=== PATIENT | female | born 1935 | race Hispanic/Latino ===

== ENCOUNTER 2017-11-13 22:45 | Inpatient (IN) | payer MEDICARE, OTHER ==
[2017-11-13 22:46] VITALS: BMI 36.3
--- NOTE | 2017-11-13 23:10 | C.PDOC ---
History Of Present Illness 82 year old female presents to the ER with daughter for a complaint of SOB. Patient was admitted at [facility] during the end of July for swollen legs, SOB, and was diagnosed with CHF. Patient was admitted for 10 days then transferred to [facility]. Patient was discharged home from [facility] on 11/07/17. She initially was able to take care of herself, however, she was discharged with cold and cough symptoms which have been worsening and causing her to get progressively SOB. Patient was barely able to get out of her chair at home and had to sleep on her recliner, she presents now tachypneic, coughing, and with leg swelling. While hospitalized and at rehab, patient was diagnosed with UTIs and needed frequent IV antibiotics. Denies fever, chills, chest pain, nausea, or vomiting. Time Seen by Provider: 11/13/17 22:52 Chief Complaint (Nursing): Shortness Of Breath History Per: Patient History/Exam Limitations: no limitations Onset/Duration Of Symptoms: Days Current Symptoms Are (Timing): Still Present Current Respiratory Medications: See Home Med List Associated Symptoms: Ankle/Leg Swelling, Other ((+) SOB, cough (-) nausea, vomiting). denies: Fever, Chills, Chest Pain Past Medical History Reviewed: Historical Data, Nursing Documentation, Vital Signs Vital Signs: Last Vital Signs Temp 98.7 F 11/13/17 22:53 Pulse 80 11/13/17 22:53 Resp 24 11/13/17 23:01 BP 144/57 L 11/13/17 22:53 Pulse Ox 96 11/14/17 00:29 - Medical History PMH: CHF, CVA, Dementia, HTN Surgical History: Carotid Endarterectomy, Cholecystectomy - [facility] Procedures EXCISION OF TOE NAIL, EXTERNAL APPROACH (07/27/17) Family History: States: No Known Family Hx - Social History Hx Alcohol Use: No Hx Substance Use: No - Immunization History Hx Tetanus Toxoid Vaccination: No Hx Influenza Vaccination: No Hx Pneumococcal Vaccination: No Review Of Systems Constitutional: Negative for: Fever, Chills Cardiovascular: Negative for: Chest Pain, Palpitations Respiratory: Positive for: Cough, Shortness of Breath Gastrointestinal: Negative for: Nausea, Vomiting Genitourinary: Negative for: Dysuria, Hematuria Musculoskeletal: Positive for: Other (Leg swelling) Physical Exam - Physical Exam Appears: Other (Tachypneic) Skin: Warm, Dry Head: Atraumatic, Normacephalic Eye(s): bilateral: Normal Inspection Oral Mucosa: Moist Throat: Normal, No Erythema, No Exudate Neck: Normal, Supple Chest: Symmetrical, No Tenderness Cardiovascular: Rhythm Regular Respiratory: Rales (at bases), No Rhonchi, Wheezing (with expiration at bases) Gastrointestinal/Abdominal: Soft, No Tenderness, Other (Obese) Back: No CVA Tenderness Extremity: Pedal Edema (Tense pitting), Other (Redness, swelling, and tenderness of bilateral feet) Neurological/Psych: Oriented x3, Normal Speech ED Course And Treatment - Laboratory Results Result Diagrams: 11/13/17 23:48 11/13/17 23:48 Lab Interpretation: Abnormal (WBC 11.9, BUN 19, Troponin and BNP normal.) ECG: Interpreted By Me ECG Rhythm: Sinus Rhythm ECG Interpretation: No Acute Changes O2 Sat by Pulse Oximetry: 96 (Room air) Pulse Ox Interpretation: Normal - Radiology CXR: Interpreted by Me CXR Interpretation: Yes: No Acute Disease Progress Note: EKG, blood work, CXR, and urinalysis ordered. Lasix administered. Reevaluation Time: 00:45 Reassessment Condition: Unchanged - Physician Consult Information Time Consulting Physician Contacted: 00:45 Physician Contacted: Clark Bronson Outcome Of Conversation: Patient to be admitted for tachypnea, weakness and peripheral edema. Disposition - Disposition Disposition: HOSPITALIZED Disposition Time: 00:46 Condition: STABLE Instructions: Weakness (ED) - POA Present On Arrival: None - Clinical Impression Clinical Impression: Weakness, Leg edema, Dyspnea - Scribe Statement The provider has reviewed the documentation as recorded by the Ferchoibkaylah Grace All medical record entries made by the Ferchoibkaylah were at my direction and personally dictated by me. I have reviewed the chart and agree that the record accurately reflects my personal performance of the history, physical exam, medical decision making, and the department course for this patient. I have also personally directed, reviewed, and agree with the discharge instructions and disposition.
[2017-11-13 23:53] LABS: BASO # 0.1 K/uL (0.0-0.2); BASO % 0.5 % (0.0-2.0); EOS # 0.1 K/uL (0.0-0.7); EOS % 1.2 % (0.0-4.0); HEMOGLOBIN 12.9 g/dL (11.0-16.0); LYMPH # 1.7 K/uL (1.0-4.3); LYMPH % 13.9 % (20.0-40.0); MEAN CELL VOLUME 92.1 fL (81.0-99.0); MEAN CORPUSCULAR HGB CONC 33.6 g/dL (33.0-37.0); MONO # 1.3 K/uL (0.0-0.8); MONO % 10.7 % (0.0-10.0); NEUT # 8.8 K/uL (1.8-7.0); NEUT % 73.7 % (50.0-75.0); NRBC % 0.1 % (0.0-2.0); RBC 4.18 Mil/uL (3.80-5.20); RED CELL DISTRIBUTION WIDTH 13.5 % (11.5-14.5); WHITE BLOOD COUNT 11.9 K/uL (4.8-10.8)
[2017-11-14 00:01] LABS: VENOUS BLOOD GAS BASE EXCESS 1.9 mmol/L (0.0-2.0); VENOUS BLOOD GAS PCO2 50 mmHg (40-60); VENOUS BLOOD GAS PO2 19 mm/Hg (30-55); VENOUS BLOOD PH 7.36 (7.32-7.43)
[2017-11-14 00:24] LABS: ALB/GLOB RATIO 1.2 (1.0-2.1); ALBUMIN 4.3 g/dL (3.5-5.0); ALT/SGPT 17 U/L (9-52); AST/SGOT 19 U/L (14-36); BLOOD UREA NITROGEN 19 mg/dL (7-17); GFR AFRICAN-AMERICAN > 60; GFR NON-AFRICAN AMERICAN 53
[2017-11-14 00:34] LABS: B-TYPE NATRIURETIC PEPTIDE 72.9 pg/mL (0-900)
[2017-11-14 01:04] LABS: SQUAMOUS EPITHIAL 1 /hpf (0-5); URINE BACTERIA RARE (<OCC); URINE BILIRUBIN NEGATIVE (NEGATIVE); URINE BLOOD 1+ (NEGATIVE); URINE CLARITY Hazy (Clear); URINE COLOR Straw (YELLOW); URINE GLUCOSE (UA) NORMAL (Normal); URINE LEUKOCYTE ESTERASE 3+ Leu/uL (Negative); URINE PROTEIN NEGATIVE (NEGATIVE); URINE UROBILINOGEN NORMAL mg/dL (0.2-1.0)
--- NOTE | 2017-11-14 02:56 | CP.PCM.HP ---
<Soo OrnelasAlex - Last Filed: 11/14/17 05:33> History of Present Illness - History of Present Illness History of Present Illness: HPI: Patient is an 82 year old female with a past medical history of bladder cancer, HTN, CHF, and brain aneurysm, who presents to the hospital with complaints of weakness, shortness of breath, productive cough, and bilateral leg swelling. The patient recently moved from [facility] back to home with her daughter 1 week ago and since then, has developed a productive cough. Per the daughter, there were several people sick at the shelter, and she recalls several nurses wearing masks. The patient reports her cough is productive of white sputum, denies colored sputum and hemoptysis. The patient also complains of shortness of breath, leg swelling, and a painful left foot that started yesterday. Of note, patient was recently hospitalized in 07/2017 for SOB and leg swelling. She was previously on diuretic, but those were discontinued during her hospitalization in July due to hypotension. She has not taken diuretics since August. The patient states she has little to no appetite for the past 2-3 days and has had generalized weakness and fatigue. She sits in a chair most of the day and uses a walker to go to and from the bathroom. Patient denies fevers, chills, headaches, dizziness, sore throat, chest pain, palpitations, abdominal pain, nausea, vomiting, diarrhea, constipation, blood in stool, dysuria, hematuria, back pain, and rashes. PMD: Dr. Bucio PMHx: bladder cancer, HTN, CHF, and brain aneurysm (in her 30's) SurgHx: bladder surgery x2; carotid clamp (in her 30s), hysterectomy FamHx: Mother, Father- [place]; Sister- Breast cancer SocHx: smoked 1/2 pack for 20 years; quit at age 34; denies etoh and drug use; lives with daughter, Mihaela, in . Allergies: PCN (rash), Sulfa (rash) Medications: Aricept 10mg PO HS, Detrol 2mg PO BID, Gabapentin 600mg PO HS, Mucinex BID Code status: DNR/DNI; POA- Mihaela (daughter; [phone]) Present on Admission - Present on Admission Any Indicators Present on Admission: No Review of Systems - Constitutional Constitutional: Weakness. absent: Chills, Fever, Headache - EENT Eyes: absent: Change in Vision Ears: absent: Abnormal Hearing, Dizziness - Cardiovascular Cardiovascular: Leg Edema. absent: Chest Pain, Dyspnea, Irregular Heart Rhythm , Palpitations, Rapid Heart Rate - Respiratory Respiratory: Cough, Dyspnea, Excessive Mucous Production (white phlegm). absent : Hemoptysis - Gastrointestinal Gastrointestinal: absent: Abdominal Pain, Constipation, Diarrhea, Hematemesis, Hematochezia, Nausea, Vomiting - Genitourinary Genitourinary: Urinary Incontinence. absent: Dysuria, Hematuria, Pyuria - Musculoskeletal Musculoskeletal: Abnormal Gait (weakness, uses walker at home) - Neurological Neurological: absent: Dizziness, Headaches - Endocrine Endocrine: Fatigue. absent: Palpitations - Hematologic/Lymphatic Hematologic: absent: Easy Bleeding, Easy Bruising Past Patient History - Infectious Disease Hx of Infectious Diseases: None - Past Medical History & Family History Past Medical History?: Yes - Past Social History Smoking Status: Never Smoked - CARDIAC Hx Congestive Heart Failure: Yes Hx Hypertension: Yes - PULMONARY Hx Respiratory Disorders: No - NEUROLOGICAL Hx Dementia: Yes - HEENT Hx HEENT Problems: No - RENAL Hx Chronic Kidney Disease: No - ENDOCRINE/METABOLIC Hx Endocrine Disorders: Yes - HEMATOLOGICAL/ONCOLOGICAL Hx Blood Disorders: No - INTEGUMENTARY Hx Dermatological Problems: No - MUSCULOSKELETAL/RHEUMATOLOGICAL Hx Musculoskeletal Disorders: No - GASTROINTESTINAL Hx Gastrointestinal Disorders: No - GENITOURINARY/GYNECOLOGICAL Hx Genitourinary Disorders: No - PSYCHIATRIC Hx Substance Use: No - SURGICAL HISTORY Hx Carotid Endarterectomy: Yes Hx Cholecystectomy: Yes - ANESTHESIA Hx Anesthesia: Yes Hx Anesthesia Reactions: No Hx Malignant Hyperthermia: No Meds Allergies/Adverse Reactions: Allergies Allergy/AdvReac Type Severity Reaction Status Date / Time Penicillins Allergy Verified 11/13/17 22:58 Sulfa (Sulfonamide Allergy Verified 11/13/17 22:58 Antibiotics) Physical Exam - Constitutional Appears: No Acute Distress - Head Exam Head Exam: ATRAUMATIC, NORMAL INSPECTION - Eye Exam Eye Exam: EOMI, PERRL Additional comments: arcus senalis - ENT Exam ENT Exam: Mucous Membranes Moist - Respiratory Exam Respiratory Exam: Rales (bilaterally), NORMAL BREATHING PATTERN. absent: Rhonchi, Respiratory Distress - Cardiovascular Exam Cardiovascular Exam: REGULAR RHYTHM, +S1, +S2 - GI/Abdominal Exam GI & Abdominal Exam: Normal Bowel Sounds, Soft. absent: Distended, Firm, Guarding, Mass, Tenderness - Extremities Exam Extremities exam: Positive for: normal capillary refill (in UE), pedal edema, tenderness (L foot > R foot). Negative for: normal inspection (LE B/L: pitting edema extending up to knees; erythematous and shiny skin; hyperkeratosis on the feet; toe onychomycosis), pedal pulses present (not palpable due to pitting edema) - Back Exam Back exam: absent: CVA tenderness (L), CVA tenderness (R), rash noted - Neurological Exam Neurological exam: Alert, CN II-XII Intact, Oriented x3 - Psychiatric Exam Psychiatric exam: Normal Affect, Normal Mood - Skin Skin Exam: Dry, Intact, Normal Color, Warm Results - Vital Signs Recent Vital Signs: Last Vital Signs Temp 98.7 F 11/13/17 22:53 Pulse 80 11/13/17 22:53 Resp 24 11/13/17 23:01 BP 144/57 L 11/13/17 22:53 Pulse Ox 96 11/14/17 00:46 - Labs Result Diagrams: 11/14/17 04:19 11/13/17 23:48 Labs: Laboratory Results - last 24 hr 11/13/17 11/13/17 11/13/17 23:09 23:48 23:48 WBC 11.9 H RBC 4.18 Hgb 12.9 Hct 38.5 MCV 92.1 MCH 31.0 MCHC 33.6 RDW 13.5 Plt Count 233 MPV 9.0 Neut % (Auto) 73.7 Lymph % (Auto) 13.9 L Grainger % (Auto) 10.7 H Eos % (Auto) 1.2 Baso % (Auto) 0.5 Neut # (Auto) 8.8 H Lymph # (Auto) 1.7 Grainger # (Auto) 1.3 H Eos # (Auto) 0.1 Baso # (Auto) 0.1 pO2 VBG pH VBG pCO2 VBG HCO3 VBG Total CO2 VBG O2 Sat (Calc) VBG Base Excess VBG Potassium Glucose Lactate Crit Value Called To Crit Value Called By Crit Value Read Back Blood Gas Notified Time Sodium 143 Potassium 4.1 Chloride 104 Carbon Dioxide 26 Anion Gap 17 BUN 19 H Creatinine 1.0 Est GFR ( Amer) > 60 Est GFR (Non-Af Amer) 53 Random Glucose 113 H Calcium 10.0 Magnesium 2.1 Total Bilirubin 0.8 AST 19 ALT 17 Alkaline Phosphatase 83 Troponin I < 0.0120 NT-Pro-B Natriuret Pep 72.9 Total Protein 7.9 Albumin 4.3 Globulin 3.7 Albumin/Globulin Ratio 1.2 Venous Blood Potassium Urine Color Straw Urine Clarity Hazy Urine pH 6.0 Ur Specific Rothschild 1.005 Urine Protein Negative Urine Glucose (UA) Normal Urine Ketones Negative Urine Blood 1+ H Urine Nitrate Negative Urine Bilirubin Negative Urine Urobilinogen Normal Ur Leukocyte Esterase 3+ H Urine WBC (Auto) 186 H Urine RBC (Auto) 1 Ur Squamous Epith Cells 1 Urine Bacteria Rare 11/13/17 23:50 WBC RBC Hgb Hct MCV MCH MCHC RDW Plt Count MPV Neut % (Auto) Lymph % (Auto) Grainger % (Auto) Eos % (Auto) Baso % (Auto) Neut # (Auto) Lymph # (Auto) Grainger # (Auto) Eos # (Auto) Baso # (Auto) pO2 19 L VBG pH 7.36 VBG pCO2 50 VBG HCO3 24.5 VBG Total CO2 29.7 H VBG O2 Sat (Calc) 30.0 L VBG Base Excess 1.9 VBG Potassium 3.8 Glucose 100 Lactate 1.1 Crit Value Called To Dr issa Crit Value Called By Li morrison Crit Value Read Back Y Blood Gas Notified Time 3 Sodium 141.0 Potassium Chloride 107.0 Carbon Dioxide Anion Gap BUN Creatinine Est GFR ( Amer) Est GFR (Non-Af Amer) Random Glucose Calcium Magnesium Total Bilirubin AST ALT Alkaline Phosphatase Troponin I NT-Pro-B Natriuret Pep Total Protein Albumin Globulin Albumin/Globulin Ratio Venous Blood Potassium 3.8 Urine Color Urine Clarity Urine pH Ur Specific Rothschild Urine Protein Urine Glucose (UA) Urine Ketones Urine Blood Urine Nitrate Urine Bilirubin Urine Urobilinogen Ur Leukocyte Esterase Urine WBC (Auto) Urine RBC (Auto) Ur Squamous Epith Cells Urine Bacteria Assessment & Plan - Assessment and Plan (Free Text) Assessment: Shortness of breath, Cough - Possibly secondary to URI, pneumonia? - Abefrile, leukocytosis (WBC 11.9), no bandemia - CXR: f/u report - Blood cx: f/u - D-dimer: elevated, 487 - Chest CT: f/u - O2 via NC - Doxycycline 100mg PO Q12h - Robitussin Q6h prn for cough Lower Extremity Edema - Venous dopplers: f/u - will consider compression stocks if dopplers are negative UTI - Urinalysis: 3+ LE - Urine cx: f/u - Doxycycline 100mg PO Q12h Weakness/Fatigue - PT/OT - Fall precaution - Encourage increased PO intake Urinary incontinence - Continue home medication: Detrol 2mg PO Prophylaxis - DVT: heparin 5000u SC Q8h; will consider compression stocks if dopplers are negative - GI: not indicated - Heart Healthy Diet; encourage increased PO intake - PT/OT - Fall precautions - Code status: DNR/DNI; POA- Mihaela (daughter; [phone]) <Clark Bronson P - Last Filed: 11/14/17 07:42> Results - Vital Signs Recent Vital Signs: Last Vital Signs Temp 97.7 F 11/14/17 05:05 Pulse 88 11/14/17 05:05 Resp 22 11/14/17 05:05 BP 113/56 L 11/14/17 05:05 Pulse Ox 99 11/14/17 05:05 - Labs Result Diagrams: 11/14/17 04:19 11/13/17 23:48 Labs: Laboratory Results - last 24 hr 11/13/17 11/13/17 11/13/17 23:09 23:48 23:48 WBC 11.9 H RBC 4.18 Hgb 12.9 Hct 38.5 MCV 92.1 MCH 31.0 MCHC 33.6 RDW 13.5 Plt Count 233 MPV 9.0 Neut % (Auto) 73.7 Lymph % (Auto) 13.9 L Grainger % (Auto) 10.7 H Eos % (Auto) 1.2 Baso % (Auto) 0.5 Neut # (Auto) 8.8 H Lymph # (Auto) 1.7 Grainger # (Auto) 1.3 H Eos # (Auto) 0.1 Baso # (Auto) 0.1 D-Dimer, Quantitative pO2 VBG pH VBG pCO2 VBG HCO3 VBG Total CO2 VBG O2 Sat (Calc) VBG Base Excess VBG Potassium Glucose Lactate Crit Value Called To Crit Value Called By Crit Value Read Back Blood Gas Notified Time Sodium 143 Potassium 4.1 Chloride 104 Carbon Dioxide 26 Anion Gap 17 BUN 19 H Creatinine 1.0 Est GFR ( Amer) > 60 Est GFR (Non-Af Amer) 53 Random Glucose 113 H Calcium 10.0 Magnesium 2.1 Total Bilirubin 0.8 AST 19 ALT 17 Alkaline Phosphatase 83 Troponin I < 0.0120 NT-Pro-B Natriuret Pep 72.9 Total Protein 7.9 Albumin 4.3 Globulin 3.7 Albumin/Globulin Ratio 1.2 Venous Blood Potassium Urine Color Straw Urine Clarity Hazy Urine pH 6.0 Ur Specific Rothschild 1.005 Urine Protein Negative Urine Glucose (UA) Normal Urine Ketones Negative Urine Blood 1+ H Urine Nitrate Negative Urine Bilirubin Negative Urine Urobilinogen Normal Ur Leukocyte Esterase 3+ H Urine WBC (Auto) 186 H Urine RBC (Auto) 1 Ur Squamous Epith Cells 1 Urine Bacteria Rare 11/13/17 11/14/17 11/14/17 23:50 03:06 04:19 WBC 14.0 H RBC 4.40 Hgb 13.9 Hct 40.6 MCV 92.2 MCH 31.5 H MCHC 34.2 RDW 13.7 Plt Count 246 MPV 9.7 Neut % (Auto) 70.2 Lymph % (Auto) 15.9 L Grainger % (Auto) 12.3 H Eos % (Auto) 1.2 Baso % (Auto) 0.4 Neut # (Auto) 9.8 H Lymph # (Auto) 2.2 Grainger # (Auto) 1.7 H Eos # (Auto) 0.2 Baso # (Auto) 0.1 D-Dimer, Quantitative 487 H pO2 19 L VBG pH 7.36 VBG pCO2 50 VBG HCO3 24.5 VBG Total CO2 29.7 H VBG O2 Sat (Calc) 30.0 L VBG Base Excess 1.9 VBG Potassium 3.8 Glucose 100 Lactate 1.1 Crit Value Called To Dr issa Crit Value Called By Li morrison Crit Value Read Back Y Blood Gas Notified Time 3 Sodium 141.0 Potassium Chloride 107.0 Carbon Dioxide Anion Gap BUN Creatinine Est GFR ( Amer) Est GFR (Non-Af Amer) Random Glucose Calcium Magnesium Total Bilirubin AST ALT Alkaline Phosphatase Troponin I NT-Pro-B Natriuret Pep Total Protein Albumin Globulin Albumin/Globulin Ratio Venous Blood Potassium 3.8 Urine Color Urine Clarity Urine pH Ur Specific Rothschild Urine Protein Urine Glucose (UA) Urine Ketones Urine Blood Urine Nitrate Urine Bilirubin Urine Urobilinogen Ur Leukocyte Esterase Urine WBC (Auto) Urine RBC (Auto) Ur Squamous Epith Cells Urine Bacteria Attending/Attestation - Attestation I have personally seen and examined this patient.: Yes I have fully participated in the care of the patient.: Yes I have reviewed all pertinent clinical information: Yes Notes (Text): 11/14/17 07:36 Assessment * Ambulatory dysfunction * Chronic venous insufficiency * H/o BILLIE with diuresis for venous insufficiency * Recent dry cough x 1 wk, 1-2 days before she left rehab * H/o carotid aneurysm, h/o bladder cancer * leucocytes in urine, will get straight cath sample of urine * DNR/DNI as d/w patient and daughter, has living will and daughter will bring the copy to hospital Plan * CTA of chest, and venous doppler as + ddimer * Avoid diuresis for leg edema as in past has caused BILLIE * Empiric doxycycline due to bronchitis * Urine straight cath sample * PT/OT, social service eval * GI/DVT prophylaxis * See orders for detail.
[2017-11-14] MEDS: guaiFENesin DM 100 mg-10 mg/5 ml UD PO PRN ×3 (03:52→18:39)
[2017-11-14] MEDS ORDERED: guaiFENesin DM 100 mg-10 mg/5 ml UD ONE (03:55)
[2017-11-14 04:58] LABS: BASO # 0.1 K/uL (0.0-0.2); BASO % 0.4 % (0.0-2.0); EOS # 0.2 K/uL (0.0-0.7); EOS % 1.2 % (0.0-4.0); HEMOGLOBIN 13.9 g/dL (11.0-16.0); LYMPH # 2.2 K/uL (1.0-4.3); LYMPH % 15.9 % (20.0-40.0); MEAN CELL VOLUME 92.2 fL (81.0-99.0); MEAN CORPUSCULAR HEMOGLOBIN 31.5 pg (27.0-31.0); MEAN CORPUSCULAR HGB CONC 34.2 g/dL (33.0-37.0); MEAN PLATELET VOLUME 9.7 fL (7.2-11.7); MONO # 1.7 K/uL (0.0-0.8); MONO % 12.3 % (0.0-10.0); NEUT # 9.8 K/uL (1.8-7.0); NEUT % 70.2 % (50.0-75.0); NRBC % 0.3 % (0.0-2.0); RBC 4.4 Mil/uL (3.80-5.20); RED CELL DISTRIBUTION WIDTH 13.7 % (11.5-14.5)
[2017-11-14 08:48] LABS: ALB/GLOB RATIO 1.3 (1.0-2.1); ALT/SGPT 17 U/L (9-52); AST/SGOT 18 U/L (14-36); BLOOD UREA NITROGEN 19 mg/dL (7-17); CALCIUM 9.4 mg/dl (8.6-10.4); GFR AFRICAN-AMERICAN > 60; GFR NON-AFRICAN AMERICAN 60
[2017-11-14] MEDS: Tolterodine 2 mg ER Cap PO SCH ×2 (09:44→18:40)
[2017-11-14] MEDS ORDERED: Iodixanol 320 MG/ML 100 ML BOTTLE IV ONE (10:23)
--- NOTE | 2017-11-14 11:14 | CP.PCM.CON ---
History of Present Illness - History of Present Illness History of Present Illness: Palliative consult requested by Doctor Ornelas for goals of care discussion Patient is a 82 yo female admitted from home with SOB, tachypnea and cough. Patient was treated in July/2017 at [facility] for similar symptoms, diagnosed with CHF, treated X 10 days and discharged to [facility]. From [facility] patient discharged home. Per daughter, patient still had cold like symptoms , that only got worse over the time. Cough has worsened and patient slept in recliner for days. On admission CXR and Doppler of LEs done, results are pending. PMH: CVA, CHF, dementia Soc. Hx: , lives with daughter Fam. Hx: no obtainable from the patient Review of Systems - Constitutional Constitutional: Fatigue - EENT Eyes: absent: As Per HPI, Blind Spots, Blurred Vision, Change in Vision, Decreased Night Vision, Diplopia, Discharge, Dry Eye, Exophthalmos, Floaters, Irritation, Itchy Eyes, Loss of Peripheral Vision, Pain, Photophobia, Requires Corrective Lenses, Sees Flashes, Spots in Vision, Tunnel Vision, Other Visual Disturbances, Loss of Vision, Other Ears: absent: As Per HPI, Decreased Hearing, Ear Discharge, Ear Pain, Tinnitus, Abnormal Hearing, Disequilibrium, Dizziness, Other Nose/Mouth/Throat: absent: As Per HPI, Epistaxis, Nasal Congestion, Nasal Discharge, Nasal Obstruction, Nasal Trauma, Nose Pain, Post Nasal Drip, Sinus Pain, Sinus Pressure, Bleeding Gums, Change in Voice, Dental Pain, Dry Mouth, Dysphagia, Halitosis, Hoarsness, Lip Swelling, Mouth Lesions, Mouth Pain, Odynophagia, Sore Throat, Throat Swelling, Tongue Swelling, Facial Pain, Neck Pain, Neck Mass, Other - Breasts Breasts: absent: As Per HPI, Change in Shape, Mass, Pain, Nipple Discharge, Nipple Inversion, Skin Changes, Swelling, Other - Cardiovascular Cardiovascular: Dyspnea on Exertion - Respiratory Respiratory: Cough, Dyspnea, Dyspnea on Exertion, Excessive Mucous Production - Gastrointestinal Gastrointestinal: absent: As Per HPI, Abdominal Pain, Belching, Bloating, Change in Bowel Habits, Change in Stool Character, Coffee Ground Emesis, Constipation, Cramping, Diarrhea, Dyspepsia, Dysphagia, Early Satiety, Excessive Flatus, Fecal Incontinence, Heartburn, Hematemesis, Hematochezia, Loose Stools, Melena, Nausea, Odynophagia, Temesmus, Vomiting, Other - Genitourinary Genitourinary: Urinary Incontinence - Reproductive: Female Reproductive:Female: Post Menopausal - Menstruation Menstruation: Post Menopausal - Musculoskeletal Musculoskeletal: Abnormal Gait, Limited Range of Motion, Muscle Weakness - Integumentary Integumentary: absent: As Per HPI, Acne, Alopecia, Bleeding Lesions, Change in Hair, Change in Nails, Change in Pigmentation, Changing Lesions, Dry Skin, Erythema, Furuncle, Hirsutism, Lesions, New Lesions, Non-Healing Lesions, Photosensitivity, Pruritus, Rash, Skin Pain, Skin Ulcer, Sores, Striae, Swelling , Unusual Bruising, Wounds, Jaundice, Other - Neurological Neurological: Confusion, Memory Loss - Psychiatric Psychiatric: Difficulty Concentrating - Endocrine Endocrine: absent: As Per HPI, Change in Body Appearance, Change in Libido, Cold Intolorance, Deepening of Voice, Excessive Sweating, Fatigue, Flushing, Heat Intolorance, Increase in Ring/Shoe/Hat Size, Palpitations, Polydipsia, Polyphagia, Polyuria, Other - Hematologic/Lymphatic Hematologic: absent: As Per HPI, Easy Bleeding, Easy Bruising, Lymphadenopathy, Other Past Patient History - Infectious Disease Hx of Infectious Diseases: None - Past Medical History & Family History Past Medical History?: Yes - Past Social History Smoking Status: Never Smoked - CARDIAC Hx Congestive Heart Failure: Yes Hx Hypertension: Yes - PULMONARY Hx Respiratory Disorders: No - NEUROLOGICAL Hx Dementia: Yes - HEENT Hx HEENT Problems: No - RENAL Hx Chronic Kidney Disease: No - ENDOCRINE/METABOLIC Hx Endocrine Disorders: Yes - HEMATOLOGICAL/ONCOLOGICAL Hx Blood Disorders: No - INTEGUMENTARY Hx Dermatological Problems: No - MUSCULOSKELETAL/RHEUMATOLOGICAL Hx Musculoskeletal Disorders: No Hx Falls: No - GASTROINTESTINAL Hx Gastrointestinal Disorders: No - GENITOURINARY/GYNECOLOGICAL Hx Genitourinary Disorders: No - PSYCHIATRIC Hx Substance Use: No - SURGICAL HISTORY Hx Carotid Endarterectomy: Yes Hx Cholecystectomy: Yes - ANESTHESIA Hx Anesthesia: Yes Hx Anesthesia Reactions: No Hx Malignant Hyperthermia: No Meds Allergies/Adverse Reactions: Allergies Allergy/AdvReac Type Severity Reaction Status Date / Time Penicillins Allergy Verified 11/13/17 22:58 Sulfa (Sulfonamide Allergy Verified 11/13/17 22:58 Antibiotics) - Medications Medications: Current Medications Donepezil HCl (Aricept) 10 mg PO HS EFRAIN Furosemide (Lasix) 20 mg IVP DAILY EFRAIN Gabapentin (Neurontin) 600 mg PO HS EFRAIN Guaifenesin/Dextromethorphan (Robitussin Dm) 5 ml PO Q6H PRN PRN Reason: Cough Last Admin: 11/14/17 09:38 Dose: 5 ml Heparin Sodium (Porcine) (Heparin) 5,000 units SC Q8 [facility] Last Admin: 11/14/17 05:38 Dose: 5,000 units Ciprofloxacin (Cipro 400mg/200ml Dsw) 400 mg in 200 mls @ 133 mls/hr IVPB Q12H EFRAIN PRN Reason: Protocol Vancomycin HCl 1,000 mg/ (Sodium Chloride) 250 mls @ 166.6 mls/hr IVPB Q12H EFRAIN PRN Reason: Protocol Tolterodine Tartrate (Detrol La) 2 mg PO BID [facility] Last Admin: 11/14/17 09:44 Dose: 2 mg Physical Exam - Constitutional Appears: Chronically Ill - Head Exam Head Exam: ATRAUMATIC, NORMAL INSPECTION, NORMOCEPHALIC - Eye Exam Eye Exam: EOMI, Normal appearance, PERRL Pupil Exam: NORMAL ACCOMODATION, PERRL - ENT Exam ENT Exam: Mucous Membranes Moist, Normal Exam - Neck Exam Neck exam: Positive for: Normal Inspection - Respiratory Exam Respiratory Exam: Decreased Breath Sounds, Rhonchi - Cardiovascular Exam Cardiovascular Exam: Tachycardia - GI/Abdominal Exam GI & Abdominal Exam: Normal Bowel Sounds, Soft - Rectal Exam Rectal Exam: Deferred - Extremities Exam Extremities exam: Positive for: joint swelling, pedal edema - Back Exam Back exam: NORMAL INSPECTION - Neurological Exam Neurological exam: Alert, Oriented x3 - Psychiatric Exam Psychiatric exam: Normal Affect, Normal Mood - Skin Skin Exam: Erythema, Mottled, Normal Color, Petechiae, Warm Results - Vital Signs Recent Vital Signs: Last Vital Signs Temp 98.8 F 11/14/17 08:00 Pulse 81 11/14/17 08:00 Resp 20 11/14/17 08:00 BP 130/75 11/14/17 08:00 Pulse Ox 99 11/14/17 08:00 - Labs Result Diagrams: 11/14/17 04:19 11/14/17 08:28 Labs: Laboratory Results - last 24 hr 11/13/17 11/13/17 11/13/17 23:09 23:48 23:48 WBC 11.9 H RBC 4.18 Hgb 12.9 Hct 38.5 MCV 92.1 MCH 31.0 MCHC 33.6 RDW 13.5 Plt Count 233 MPV 9.0 Neut % (Auto) 73.7 Lymph % (Auto) 13.9 L [place] % (Auto) 10.7 H Eos % (Auto) 1.2 Baso % (Auto) 0.5 Neut # (Auto) 8.8 H Lymph # (Auto) 1.7 [place] # (Auto) 1.3 H Eos # (Auto) 0.1 Baso # (Auto) 0.1 D-Dimer, Quantitative pO2 VBG pH VBG pCO2 VBG HCO3 VBG Total CO2 VBG O2 Sat (Calc) VBG Base Excess VBG Potassium Glucose Lactate Crit Value Called To Crit Value Called By Crit Value Read Back Blood Gas Notified Time Sodium 143 Potassium 4.1 Chloride 104 Carbon Dioxide 26 Anion Gap 17 BUN 19 H Creatinine 1.0 Est GFR ( Amer) > 60 Est GFR (Non-Af Amer) 53 Random Glucose 113 H Calcium 10.0 Magnesium 2.1 Total Bilirubin 0.8 AST 19 ALT 17 Alkaline Phosphatase 83 Troponin I < 0.0120 NT-Pro-B Natriuret Pep 72.9 Total Protein 7.9 Albumin 4.3 Globulin 3.7 Albumin/Globulin Ratio 1.2 Venous Blood Potassium Urine Color Straw Urine Clarity Hazy Urine pH 6.0 Ur Specific [place] 1.005 Urine Protein Negative Urine Glucose (UA) Normal Urine Ketones Negative Urine Blood 1+ H Urine Nitrate Negative Urine Bilirubin Negative Urine Urobilinogen Normal Ur Leukocyte Esterase 3+ H Urine WBC (Auto) 186 H Urine RBC (Auto) 1 Ur Squamous Epith Cells 1 Urine Bacteria Rare 11/13/17 11/14/17 11/14/17 23:50 03:06 04:19 WBC 14.0 H RBC 4.40 Hgb 13.9 Hct 40.6 MCV 92.2 MCH 31.5 H MCHC 34.2 RDW 13.7 Plt Count 246 MPV 9.7 Neut % (Auto) 70.2 Lymph % (Auto) 15.9 L [place] % (Auto) 12.3 H Eos % (Auto) 1.2 Baso % (Auto) 0.4 Neut # (Auto) 9.8 H Lymph # (Auto) 2.2 [place] # (Auto) 1.7 H Eos # (Auto) 0.2 Baso # (Auto) 0.1 D-Dimer, Quantitative 487 H pO2 19 L VBG pH 7.36 VBG pCO2 50 VBG HCO3 24.5 VBG Total CO2 29.7 H VBG O2 Sat (Calc) 30.0 L VBG Base Excess 1.9 VBG Potassium 3.8 Glucose 100 Lactate 1.1 Crit Value Called To Dr issa Crit Value Called By Li morrison Crit Value Read Back Y Blood Gas Notified Time 3 Sodium 141.0 Potassium Chloride 107.0 Carbon Dioxide Anion Gap BUN Creatinine Est GFR ( Amer) Est GFR (Non-Af Amer) Random Glucose Calcium Magnesium Total Bilirubin AST ALT Alkaline Phosphatase Troponin I NT-Pro-B Natriuret Pep Total Protein Albumin Globulin Albumin/Globulin Ratio Venous Blood Potassium 3.8 Urine Color Urine Clarity Urine pH Ur Specific [place] Urine Protein Urine Glucose (UA) Urine Ketones Urine Blood Urine Nitrate Urine Bilirubin Urine Urobilinogen Ur Leukocyte Esterase Urine WBC (Auto) Urine RBC (Auto) Ur Squamous Epith Cells Urine Bacteria 11/14/17 08:28 WBC RBC Hgb Hct MCV MCH MCHC RDW Plt Count MPV Neut % (Auto) Lymph % (Auto) [place] % (Auto) Eos % (Auto) Baso % (Auto) Neut # (Auto) Lymph # (Auto) [place] # (Auto) Eos # (Auto) Baso # (Auto) D-Dimer, Quantitative pO2 VBG pH VBG pCO2 VBG HCO3 VBG Total CO2 VBG O2 Sat (Calc) VBG Base Excess VBG Potassium Glucose Lactate Crit Value Called To Crit Value Called By Crit Value Read Back Blood Gas Notified Time Sodium 142 Potassium 3.7 Chloride 103 Carbon Dioxide 28 Anion Gap 15 BUN 19 H Creatinine 0.9 Est GFR ( Amer) > 60 Est GFR (Non-Af Amer) 60 Random Glucose 110 H Calcium 9.4 Magnesium Total Bilirubin 1.0 AST 18 ALT 17 Alkaline Phosphatase 75 Troponin I NT-Pro-B Natriuret Pep Total Protein 7.0 Albumin 4.0 Globulin 3.0 Albumin/Globulin Ratio 1.3 Venous Blood Potassium Urine Color Urine Clarity Urine pH Ur Specific [place] Urine Protein Urine Glucose (UA) Urine Ketones Urine Blood Urine Nitrate Urine Bilirubin Urine Urobilinogen Ur Leukocyte Esterase Urine WBC (Auto) Urine RBC (Auto) Ur Squamous Epith Cells Urine Bacteria Assessment & Plan - Assessment and Plan (Free Text) Assessment: Palliative consult DNR/DNI, no advance directive on chart, PPS 20% I reviewed medical records, all diagnostic studies and examined/interviewed patient in the bed. Patient examined in bed, alert, oriented X 3, in good spirit. Lungs are congested, moist, non productive cough noted. Robitussin on board. Abdomen oft, active bowel sounds, good appetite. Low extremities are swollen, L > R, red, molted. Popliteal pulses present. Feet tender to touch. Patient is on Heparn. US of LEs is done, results are pending. At home patient used walker to ambulate. CXR negative acute findings. WBC bharati up to 14.0 from 11.9. Patent started on Vanco Iv and Cipro PO. Lasix 20 mg as well. BP 10/75, O2sat 99% O2 . Goals of care discussed with patient. Patient is aware of her condition and is mostly annoyed by her swollen legs and congested lungs. Patient hopes to return home soon. I asked if I could talk to her daughter about goals of care and she agreed. The daughter was not available, voice mail left. Impression * Chronically ill lady with acute SOB and cough * Significant edema to LEs * Limited mobility due to LEs condition * Missing Advance directive on chat * Daughter Mery is [employer] and behavioral health care coordinator, Suggestion * Continue lasix with attention to BP, patient has tendency to go Hypotensive, as per ED report * OOB to chair with PT * If Doppler negative, would consider KASIE wrap for gentle compression of LEs . Compression stackings may be too tight or uncomfortable for the patient. Also they are difficult to put on * PO fluids as tolerated * Monitor K Level I will schedule family meeting with daughter for further goals of care discussion and to complete POLST.
--- NOTE | 2017-11-14 11:15 | RAD ---
Date of service: 11/13/2017 PROCEDURE: CHEST RADIOGRAPH, 1 VIEW HISTORY: SOB COMPARISON: None available. FINDINGS: LUNGS: Clear. PLEURA: Elevation of the left hemidiaphragm. No pneumothorax or pleural fluid seen. CARDIOVASCULAR: Atherosclerotic aortic calcifications. Cardiomediastinal silhouette at the upper limits of normal in size. OSSEOUS STRUCTURES: Degenerative changes. VISUALIZED UPPER ABDOMEN: Normal. OTHER FINDINGS: None. IMPRESSION: No active disease.
[2017-11-14 11:16] LABS: SQUAMOUS EPITHIAL 3 /hpf (0-5); URINE BACTERIA RARE (<OCC); URINE BILIRUBIN NEGATIVE (NEGATIVE); URINE BLOOD 1+ (NEGATIVE); URINE CLARITY Hazy (Clear); URINE COLOR Yellow (YELLOW); URINE GLUCOSE (UA) NORMAL (Normal); URINE LEUKOCYTE ESTERASE 3+ Leu/uL (Negative); URINE PROTEIN NEGATIVE (NEGATIVE); URINE UROBILINOGEN NORMAL mg/dL (0.2-1.0)
--- NOTE | 2017-11-14 11:21 | CP.PCM.PN ---
Subjective - Date & Time of Evaluation Date of Evaluation: 11/14/17 Time of Evaluation: 11:20 - Subjective Subjective: Progress note for Hospitalist Service Patient seen and examined at bedside. Daughter not present with patient. She states her shortness of breath has improved. She states she never lies flat, and is unsure if she has difficulty breathing in that position. She denies chest pain, but admits to cough with occasional white sputum. She denies palpitations, headache, lightheadedness. She states she normally ambulates with a walker, but spends most of her day sitting up in a chair. She lives at home with daughter. She states she has been hospitalized recently. As per records, patient was recently hospitalized for UTIs. She currently denies dysuria or urinary frequency. She denies abdominal pain, constipation, diarrhea. Objective - Vital Signs/Intake and Output Vital Signs (last 24 hours): Temp Pulse Resp BP Pulse Ox 98.8 F 81 20 130/75 99 11/14/17 08:00 11/14/17 08:00 11/14/17 08:00 11/14/17 08:00 11/14/17 08:00 - Medications Medications: Current Medications Donepezil HCl (Aricept) 10 mg PO HS EFRAIN Furosemide (Lasix) 20 mg IVP DAILY EFRAIN Gabapentin (Neurontin) 600 mg PO HS EFRAIN Guaifenesin/Dextromethorphan (Robitussin Dm) 5 ml PO Q6H PRN PRN Reason: Cough Last Admin: 11/14/17 09:38 Dose: 5 ml Heparin Sodium (Porcine) (Heparin) 5,000 units SC Q8 [facility] Last Admin: 11/14/17 05:38 Dose: 5,000 units Ciprofloxacin (Cipro 400mg/200ml Dsw) 400 mg in 200 mls @ 133 mls/hr IVPB Q12H EFRAIN PRN Reason: Protocol Vancomycin HCl 1,000 mg/ (Sodium Chloride) 250 mls @ 166.6 mls/hr IVPB Q12H EFRAIN PRN Reason: Protocol Tolterodine Tartrate (Detrol La) 2 mg PO BID [facility] Last Admin: 11/14/17 09:44 Dose: 2 mg - Labs Labs: 11/14/17 04:19 11/14/17 08:28 - Constitutional Appears: No Acute Distress - Head Exam Head Exam: ATRAUMATIC, NORMOCEPHALIC - Eye Exam Eye Exam: EOMI. absent: Nystagmus, Scleral icterus - ENT Exam ENT Exam: Mucous Membranes Moist - Neck Exam Additional comments: surgical scar from carotid clip - Respiratory Exam Respiratory Exam: Rales (bilateral lower lobes). absent: Chest Wall Tenderness , Rhonchi, Wheezes - Cardiovascular Exam Cardiovascular Exam: REGULAR RHYTHM, +S1, +S2. absent: JVD Additional comments: no hepatojugular reflex - GI/Abdominal Exam GI & Abdominal Exam: Soft, Normal Bowel Sounds. absent: Distended, Firm, Tenderness, Organomegaly - Extremities Exam Extremities Exam: Pedal Edema Additional comments: Bilateral lower extremities: hyperkeratotic changes of feet with erythema and edema. Tenderness on dorsum of left foot. Right oven tender near 1st metatarsal head. Thick, discolored nails on feet consistent with onychomycosis. Pulses intact erythema extending up to calf bilaterally. Calf nontender. Pitting edema extending up to knees bilaterally. - Back Exam Back Exam: absent: CVA tenderness (L), CVA tenderness (R) - Neurological Exam Neurological Exam: Alert, Awake, CN II-XII Intact, Oriented x3 - Skin Skin Exam: Dry, Intact, Warm Assessment and Plan - Assessment and Plan (Free Text) Plan: Assessment/plan Acute on chronic Congestive heart failure exacerbation Lasix 20mg IVx1 given - Patient's daughter stated that patient has a reaction to Lasix after 2nd or 3rd dose. Lasix 20mg every other day held. Daughter agreed to bring in home medication Recent ECHO from 08/02/17 revealed EF of 55% Healthcare associated pneumonia from recent hospitalization white count 11.9 --> 14.0 Vancomycin 1g Q12 Ciprofloxacin 400mg IV Q12 Blood cultures Urine cultures VBG pH 7.36 pCO2 50 pO2 19 lactate 1.1 Rule out PE/DVT, given history of bladder cancer 11/14/17 CT angio: no acute pulmonary embolism. no evidence of acute pulmonary disease 11/14/17 Lower extremity dopplers: Bilateral peroneal veins are not well visualized due to swelling. There is no evidence of venous thrombosis for the remaining veins in bilateral lower extremities. Urinary Tract Infection UA 3+ leuk esterase, WBC 186 11/14/17 Repeat UA 3+ leuk esterase, WBC 32 Vancomycin 1g Q12 Ciprofloxacin 400mg IV Q12 Follow up on urine cultures Bilateral lower extremity edema, Venous stasis changes 11/14/17 Lower extremity dopplers: Bilateral peroneal veins are not well visualized due to swelling. There is no evidence of venous thrombosis for the remaining veins in bilateral lower extremities. History of bladder cancer As per daughter Mihaela, patient had 2 surgeries for bladder cancer 8-10 years ago, not following with oncologists currently. Patient has not followed up with physicians since 2016. History of dementia, possible depression As per conversation with daughter in the evening, patient was told that patient has been hiding her medications and not been compliant. She has been letting herself sit in wet diapers for extended periods of time and is not motivated to go to the bathroom. Prophylaxis Heparin 5000 units SC q8 Heart healthy diet PT/OT evaluation TUSHAR Hanna Case discussed with Dr. Gore
[2017-11-14] MEDS: Ciprofloxacin 400mg/200ml D5W 400 MG/200 ML BAG IVPB SCH ×2 (12:23→23:25)
[2017-11-14] MEDS: Vancomycin 1 gm/NS 200 ml 1 GM/200 ML BAG IVPB SCH ×3 (12:38→16:14)
--- NOTE | 2017-11-14 14:20 | CT ---
Date of service: 11/14/2017 PROCEDURE: CT Chest with contrast (Pulmonary Angiogram) HISTORY: r/o pe COMPARISON: None available. TECHNIQUE: Axial computed tomography images were obtained of the chest in the pulmonary arterial phase of enhancement. Coronal and sagittal reformatted images were created and reviewed. Intravenous contrast dose: 100 mL Visipaque 320 Radiation dose: Total exam DLP = 615.92 mGy-cm. This CT exam was performed using one or more of the following dose reduction techniques: Automated exposure control, adjustment of the mA and/or kV according to patient size, and/or use of iterative reconstruction technique. FINDINGS: PULMONARY ARTERIES: Unremarkable. No pulmonary embolism. AORTA: The thoracic aorta is ectatic and tortuous. There is mild dilatation of the ascending thoracic aorta measures up to 3.7 centimeter. LUNGS: There is no evidence of pneumonia or mass lesion in the lungs. PLEURAL SPACES: Unremarkable. No effusion or pneumothorax. HEART: Unremarkable. No cardiomegaly. No significant pericardial effusion. LYMPH NODES: No lymphadenopathy. BONES, CHEST WALL: Unremarkable. No fracture or destructive lesion OTHER FINDINGS: Unremarkable. IMPRESSION: No evidence of pulmonary embolus. No evidence of acute pulmonary disease.
--- NOTE | 2017-11-14 14:36 | VASCLAB ---
Date of service: 11/14/2017 PROCEDURE: Lower Extremity Venous Duplex Exam. HISTORY: Edema, r/o DVT PRIORS: None. TECHNIQUE: Bilateral common femoral, femoral, popliteal and posterior tibial, peroneal and great saphenous veins were evaluated. Flow was assessed with color Doppler, compressibility, assessment of phasic flow and augmentation response. Report prepared by KWADWO Spencer FINDINGS: RIGHT: 1. Common Femoral Vein: 1.1. Compressibility - Fully compressible: Thrombus - None : Flow - Phasic: Augmentation -Normal: Reflux - None. 2. Femoral Vein: 2.1. Compressibility - Fully compressible: Thrombus - None : Flow - Phasic: Augmentation -Normal: Reflux - None. 3. Popliteal Vein: 3.1. Compressibility - Fully compressible: Thrombus - None : Flow - Phasic: Augmentation -Normal: Reflux - None. 4. Posterior Tibial Vein: 4.1. Compressibility - Fully compressible: Thrombus - None: Flow - Phasic: Augmentation -Normal: Reflux - None. 5. Peroneal Vein: 6. Great Saphenous Vein: 6.1. Compressibility - Fully compressible: Thrombus - None: Flow - Phasic: Augmentation - Normal: Reflux - None. LEFT: 1. Common Femoral Vein: 1.1. Compressibility - Fully compressible: Thrombus - None: Flow - Phasic: Augmentation -Normal: Reflux - None. 2. Femoral Vein: 2.1. Compressibility - Fully compressible: Thrombus - None: Flow - Phasic: Augmentation -Normal: Reflux - None. 3. Popliteal Vein: 3.1. Compressibility - Fully compressible: Thrombus - None : Flow - Phasic: Augmentation -Normal: Reflux - None. 4. Posterior Tibial Vein: 4.1. Compressibility - Fully compressible: Thrombus - None: Flow - Phasic: Augmentation -Normal: Reflux - None. 5. Peroneal Vein: 6. Great Saphenous Vein: 6.1. Compressibility - Fully compressible: Thrombus - None: Flow - Phasic: Augmentation - Normal: Reflux - None. OTHER FINDINGS: Right: None significant. Left: None significant. IMPRESSION: Bilateral peroneal veins are not well visualized due to swelling. There is no evidence of venous thrombosis for the remaining veins in bilateral lower extremities.
[2017-11-14 15:39] LABS: CK-MB 0.61 ng/mL (0.0-3.38)
--- NOTE | 2017-11-15 02:50 | CON ---
DATE: 11/14/2017 CARDIOLOGY CONSULTATION REASON FOR CONSULTATION: Exacerbation of congestive heart failure. HISTORY OF PRESENT ILLNESS: The patient is an 82-year-old female who was brought to the emergency room by her daughter complaining of shortness of breath and leg swelling. The patient was diagnosed with congestive heart failure in July of this year at [facility]. The patient is unaware of any history of heart attack in the past, and when asked if she had cardiac catheterization, she was not sure, but mostly likely she did not have it. The patient denies any retrosternal chest pain and is not aware of any history of a stroke in the past. SOCIAL HISTORY: Nonsmoker, nondrinker. MEDICATIONS: Aricept 10 mg at bedtime, Cipro 400 mg intravenously every 12 hours, Detrol LA 2 mg twice a day, heparin 5000 units every 8 hours, Lasix 20 mg p.o. daily, Neurontin 600 mg at bedtime, Robitussin-DM 5 mL every 6 hours p.r.n., vancomycin 1 gm intravenously every 12 hours. REVIEW OF SYSTEMS: No fever or chills. No productive cough. No recent fall. PAST MEDICAL HISTORY: Hypertension, early dementia, and congestive heart failure. PHYSICAL EXAMINATION: GENERAL: The patient is an elderly female who does not appear to be in any acute respiratory distress. VITAL SIGNS: Blood pressure 130/75, heart rate 81, temperature 98.8, respirations 20. HEENT: Normocephalic. CHEST: Bibasilar rhonchi. HEART: S1, S2 regular. ABDOMEN: Soft. EXTREMITIES: Trace leg edema. IMAGING STUDIES: Chest x-ray, mild cardiomegaly with widened mediastinum, the x-ray is rotated. There are prominent bronchovascular markings and possible mild congestive heart failure. LABORATORY DATA: SMA-7: sodium 142, potassium 3.7, chloride 103, CO2 of 28, glucose 110, BUN 19, creatinine 0.9. One set of troponin is negative. CBC: WBC 14, hemoglobin and hematocrit 13.9 and 40.8, white count 246,000. D-Dimer is elevated 483. Mycoplasma pneumonia IgM is negative. Chest CT angio: No evidence of pulmonary embolus and no acute pulmonary findings. Venous Doppler of the lower extremity: Bilateral peroneal veins are not well visualized. Otherwise, no evidence of DVT in the remaining veins of both lower extremities. Echocardiography study performed in July of this year at [facility] revealed normal left ventricular systolic function with normal wall motion, mild aortic insufficiency, ejection fraction estimated at 55%, grade 1 abnormal relaxation present. EKG revealed normal sinus rhythm. ASSESSMENT: 1. Consider diastolic left ventricular failure. 2. Hypertension. 3. Rule out underlying pneumonia. RECOMMENDATIONS: Continue current subcutaneous heparin 5000 units every 8 hours, oral Lasix 20 mg once a day, IV vancomycin 1 gm every 12 hours, gabapentin 600 mg orally daily, Robitussin DM 1 teaspoon every 6 hours p.r.n. Shamar Pisano MD
[2017-11-15] MEDS: Vancomycin 1 gm/NS 200 ml 1 GM/200 ML BAG IVPB SCH ×2 (04:40→17:47)
[2017-11-15 07:42] LABS: ALB/GLOB RATIO 1.2 (1.0-2.1); ALBUMIN 3.2 g/dL (3.5-5.0); ALT/SGPT 19 U/L (9-52); AST/SGOT 15 U/L (14-36); BLOOD UREA NITROGEN 20 mg/dL (7-17); CALCIUM 8.8 mg/dl (8.6-10.4); GFR AFRICAN-AMERICAN > 60; GFR NON-AFRICAN AMERICAN 60
[2017-11-15 07:51] LABS: BASO # 0.1 K/uL (0.0-0.2); BASO % 0.7 % (0.0-2.0); EOS # 0.3 K/uL (0.0-0.7); EOS % 4.6 % (0.0-4.0); LYMPH # 2.5 K/uL (1.0-4.3); LYMPH % 34.3 % (20.0-40.0); MEAN CELL VOLUME 91.8 fL (81.0-99.0); MEAN CORPUSCULAR HEMOGLOBIN 30.7 pg (27.0-31.0); MEAN CORPUSCULAR HGB CONC 33.4 g/dL (33.0-37.0); MEAN PLATELET VOLUME 8.8 fL (7.2-11.7); MONO # 0.9 K/uL (0.0-0.8); MONO % 11.9 % (0.0-10.0); NEUT # 3.5 K/uL (1.8-7.0); NEUT % 48.5 % (50.0-75.0); NRBC % 0.1 % (0.0-2.0); RBC 3.62 Mil/uL (3.80-5.20); RED CELL DISTRIBUTION WIDTH 13.8 % (11.5-14.5); WHITE BLOOD COUNT 7.3 K/uL (4.8-10.8)
[2017-11-15 07:57] LABS: HEMOGLOBIN 11.1 g/dL (11.0-16.0)
--- NOTE | 2017-11-15 09:12 | CP.PCM.PN ---
<Carlos Jimenes - Last Filed: 11/15/17 19:39> Subjective - Date & Time of Evaluation Date of Evaluation: 11/15/17 Time of Evaluation: 09:12 - Subjective Subjective: Progress Note for Hospitalist service Patient was seen and examined at bedside. She states that her cough has not improved from yesterday, with occasional white sputum. She denies fevers, chills , chest pain, palpitations, lightheadedness, abdominal pain, constipation and diarrhea. Patient was recently hospitalized and was recently in rehab facility. Objective - Vital Signs/Intake and Output Vital Signs (last 24 hours): Temp Pulse Resp BP Pulse Ox 98.6 F 69 20 122/62 98 11/15/17 00:00 11/15/17 00:00 11/15/17 00:00 11/15/17 00:00 11/15/17 00:00 Intake and Output: 11/15/17 11/15/17 06:59 18:59 Intake Total 250 Balance 250 - Medications Medications: Current Medications Donepezil HCl (Aricept) 10 mg PO HS [facility] Last Admin: 11/14/17 21:19 Dose: 10 mg Furosemide (Lasix) 20 mg PO QOD6 [facility] Last Admin: 11/14/17 18:00 Dose: Not Given Gabapentin (Neurontin) 600 mg PO HS [facility] Last Admin: 11/14/17 21:19 Dose: 600 mg Guaifenesin/Dextromethorphan (Robitussin Dm) 5 ml PO Q6H PRN PRN Reason: Cough Last Admin: 11/14/17 18:39 Dose: 5 ml Heparin Sodium (Porcine) (Heparin) 5,000 units SC Q8 [facility] Last Admin: 11/14/17 21:18 Dose: 5,000 units Ciprofloxacin (Cipro 400mg/200ml Dsw) 400 mg in 200 mls @ 133 mls/hr IVPB Q12H [facility] PRN Reason: Protocol Last Admin: 11/14/17 23:25 Dose: 133 mls/hr Vancomycin/Sodium Chloride (Vancomycin 1 Gm/Ns 200 Ml) 1 gm in 200 mls @ 133.333 mls/hr IVPB Q12H [facility] PRN Reason: Protocol Last Admin: 11/15/17 04:40 Dose: 133.333 mls/hr Tolterodine Tartrate (Detrol La) 2 mg PO BID [facility] Last Admin: 11/14/17 18:40 Dose: 2 mg - Labs Labs: 11/15/17 07:18 11/15/17 07:18 - Constitutional Appears: Other (Patient is laying with bed at incline, coughing. ) - Head Exam Head Exam: ATRAUMATIC, NORMOCEPHALIC - Eye Exam Eye Exam: EOMI - ENT Exam ENT Exam: Mucous Membranes Moist - Neck Exam Additional comments: surgical scar from carotid clips - Respiratory Exam Respiratory Exam: Rales (rales present in right lower lung man>left lower lung man). absent: Rhonchi, Wheezes, Respiratory Distress, Stridor - Cardiovascular Exam Cardiovascular Exam: REGULAR RHYTHM, +S1, +S2 - GI/Abdominal Exam GI & Abdominal Exam: Soft, Normal Bowel Sounds. absent: Firm, Guarding, Rigid, Tenderness - Extremities Exam Extremities Exam: Calf Tenderness, Pedal Edema Additional comments: Bilateral lower extremities: hyperkeratotic changes of feet with erythema and edema. Edema on feet has improved from yesterday. Mild tenderness to palpation of left humphreys and left foot. Right foot mildly tender on dorsum. Thick, discolored nails on feet consistent with onychomycosis. Pulses intact Erythema extending up to mid humphreys bilaterally. 1+ Pitting edema extending up to knees bilaterally. - Back Exam Back Exam: absent: CVA tenderness (L), CVA tenderness (R) - Neurological Exam Neurological Exam: Alert, Awake - Skin Skin Exam: Dry, Intact, Warm Assessment and Plan - Assessment and Plan (Free Text) Plan: Assessment/plan Dyspnea Acute on chronic Congestive heart failure exacerbation - 11/14/17 Lasix 20mg IVx1 given. Later in the evening, patient's daughter arrived and stated that patient has a bad reaction with flushing to Lasix after 2nd or 3rd dose. Lasix 20mg every other day held. Daughter agreed to bring in home medication - 11/15/17 Patient's daughter confirmed that patient's throat closes with Lasix. Patient brought in Ethacrynic acid 25mg TID without the prescription # or bottle. Daughter was made aware that she needed to bring in bottle if possible. As per pharmacy, patient cannot be provided Ethacrynic acid without bottle or prescription number. Spoke with daughter Mihaela about goals of care for patient. Recent ECHO from 08/02/17 revealed EF of 55% Meds: Duonebs Q4 ASA 81mg PO daily Coreg 3.125mg PO BID Daily weights I&Os Cardiology Dr. Pisano consulted, help appreciated. Healthcare associated pneumonia from recent hospitalization white count 11.9 --> 14.0-->7.3 11/14/17 Vancomycin 1g Q12 11/14/17 Ciprofloxacin 400mg IV Q12 Blood cultures Urine culture prelim GP cocci 11/13/17 VBG pH 7.36 pCO2 50 pO2 19 lactate 1.1 11/14/17 negative for mycoplasma pneumonia Hypokalemia K 3.3 Mag 1.8 Repleted with KCL 40mEq PO Rule out PE/DVT, given history of bladder cancer 11/14/17 CT angio: no acute pulmonary embolism. no evidence of acute pulmonary disease 11/14/17 Lower extremity dopplers: Bilateral peroneal veins are not well visualized due to swelling. There is no evidence of venous thrombosis for the remaining veins in bilateral lower extremities. Urinary Tract Infection Hx of urinary incontinence 11/14/17 UA 3+ leuk esterase, WBC 186 11/14/17 Repeat UA 3+ leuk esterase, WBC 32 11/14/17 Vancomycin 1g Q12 started 11/14/17 Ciprofloxacin 400mg IV Q12 started Urine cultures prelim GP cocci Bilateral lower extremity edema, Venous stasis changes 11/14/17 Lower extremity dopplers: Bilateral peroneal veins are not well visualized due to swelling. There is no evidence of venous thrombosis for the remaining veins in bilateral lower extremities. Gabapentin 600mg PO HS History of bladder cancer As per daughter Mihaela, patient had 2 surgeries for bladder cancer 8-10 years ago, not following with oncologists currently. Patient has not followed up with physicians since 2016. History of dementia, possible depression 11/14/17 As per conversation with daughter in the evening, patient was told that patient has been hiding her medications and not been compliant. She has been letting herself sit in wet diapers for extended periods of time and is not motivated to go to the bathroom. Psychiatry Dr. Hamilton consulted, help appreciated Prophylaxis Heparin 5000 units SC q8 Florastor 250mg BID Heart healthy diet PT/OT evaluation Turn every 2 hours to evaluate for sacral ulcers Carlos Jimenes, PGYI Case discussed with Dr. Velasquez <Borker,Oneyda V - Last Filed: 11/16/17 18:45> Objective - Vital Signs/Intake and Output Vital Signs (last 24 hours): Temp Pulse Resp BP Pulse Ox 98.0 F 62 20 126/66 100 11/16/17 15:10 11/16/17 15:10 11/16/17 15:10 11/16/17 15:10 11/16/17 15:10 - Medications Medications: Current Medications Albuterol/Ipratropium (Duoneb 3 Mg/0.5 Mg (3 Ml) Ud) 3 ml INH RQ4 [facility] Last Admin: 11/16/17 16:11 Dose: 3 ml Aspirin (Aspirin Chewable) 81 mg PO DAILY [facility] Last Admin: 11/16/17 10:20 Dose: 81 mg Benzonatate (Tessalon Perles) 100 mg PO TID [facility] Last Admin: 11/16/17 14:22 Dose: 100 mg Carvedilol (Coreg) 3.125 mg PO BID [facility] Last Admin: 11/16/17 10:21 Dose: 3.125 mg Donepezil HCl (Aricept) 10 mg PO HS [facility] Last Admin: 11/15/17 21:53 Dose: 10 mg Famotidine (Pepcid) 20 mg PO DAILY [facility] Last Admin: 11/16/17 10:20 Dose: 20 mg Gabapentin (Neurontin) 600 mg PO HS [facility] Last Admin: 11/15/17 21:54 Dose: 600 mg Guaifenesin/Dextromethorphan (Robitussin Dm) 5 ml PO Q6H PRN PRN Reason: Cough Last Admin: 11/16/17 06:07 Dose: 5 ml Heparin Sodium (Porcine) (Heparin) 5,000 units SC Q8 [facility] Last Admin: 11/16/17 13:11 Dose: 5,000 units Home Med (Home Med) 1 unit PO BID [facility] Ciprofloxacin (Cipro 400mg/200ml Dsw) 400 mg in 200 mls @ 133 mls/hr IVPB Q12H [facility] PRN Reason: Protocol Last Admin: 11/16/17 11:15 Dose: 133 mls/hr Vancomycin/Sodium Chloride (Vancomycin 1 Gm/Ns 200 Ml) 1 gm in 200 mls @ 133.333 mls/hr IVPB Q12H [facility] PRN Reason: Protocol Last Admin: 11/16/17 15:57 Dose: 133.333 mls/hr Saccharomyces Boulardii (Florastor) 250 mg PO BID [facility] Last Admin: 11/16/17 10:22 Dose: 250 mg Tolterodine Tartrate (Detrol) 2 mg PO BID [facility] Last Admin: 11/16/17 11:19 Dose: 2 mg - Labs Labs: 11/16/17 07:11 11/16/17 07:11 Attending/Attestation - Attestation I have personally seen and examined this patient.: Yes I have fully participated in the care of the patient.: Yes I have reviewed all pertinent clinical information, including history, physical exam and plan: Yes Notes (Text): This is a late computer entry for 11/15/2017. Patient seen, examined, case discussed with medical office technician. She transferred to telemetry yesterday given exacerbation for diastolic CHF. Patient reports breathing is about the same does have mild productive cough. We did speak with patient's daughter Yesica who came later in the evening and patient does have an anaphylactic response to Lasix wherein she feels like her throat was closing up. Which is likely attributed to herself or allergy. Patient started to attempt bring alternative medication for patient to pharmacy however are pharmacy will not honor it without a valid prescription. I'll why spoken with the daughter to see if she can bring in the bottle to verify the medication to allow pharmacy to use it. I've also spoken with daughter as well of she thinks past from mother to go to rehabilitation upon stabilization of the hospital however patient has used 100 days worth of rehabilitation earlier this year. We will need to follow-up with social work on Saturday to see if there is any eligibility for the patient. We will hold Lasix given allergy. Patient CT chest does not show any acute pulmonary embolism nor pulmonary disease. We'll discontinue IV antibiotics. White count has resolved. We are awaiting final urine culture. Since lower extremity edema is trace nonpitting. A patient's daughter is suspicious for depression for the patient. Since being discharged from rehabilitation about 45 days ago, has been eating less, being less active, relatively in bed. We'll follow with psychiatry for any further recommendations. Daughter seems open to appetite stimulant therapy if oriented Assessment/Plan 1) Dyspnea Acute on chronic diastolic Congestive heart failure exacerbation Assessment/Plan * Cardiology Dr. Pisano consulted, help appreciated. * Monitor on telemetry * Aspirin 81 mg 1 tab daily * Coreg 3.125 mg 1 tab by mouth twice a day * Unable to give Lasix secondary to sulfur allergy side effect flushing and possible anaphylactic symptoms * We have attempted to retrieve alternative to Lasix: However 1 not available on a hospital formulary, 2 patient daughter unable to bring in valid prescription bottle and therefore pharmacy would not accepted in 3 there is no alternate we'll consult nephrology if there is. * CT angiogram 11/14/2017 indicates no evidence of pulmonary embolus and no evidence of acute pathology disease. * Lower extremity dopplers: Bilateral peroneal veins are not well visualized due to swelling. There is no evidence of venous thrombosis for the remaining veins in bilateral lower extremities. * Daily weights * I&Os 2) Possible pneumonia Bronchitis Assessment/Plan * White count normalized * CT angiogram 11/14/2017 indicates no evidence of pulmonary embolus and no evidence of acute pathology disease. * Duonebs Q4H scheduled 3) Hypokalemia Assessment/Plan * Monitor and replete 4) Urinary Tract Infection Hx of urinary incontinence Hx of Bladder Cancer Assessment/Plan * Ciprofloxacin 400mg IV Q12H (active since 11/14/17) 5) Bilateral lower extremity edema, Venous stasis changes Assessment/Plan * Lower extremity dopplers: Bilateral peroneal veins are not well visualized due to swelling. There is no evidence of venous thrombosis for the remaining veins in bilateral lower extremities. * CT angiogram 11/14/2017 indicates no evidence of pulmonary embolus and no evidence of acute pathology disease. * Gabapentin 600mg PO HS 6) History of bladder cancer Assessment/Plan * As per daughter Mihaela, patient had 2 surgeries for bladder cancer 8-10 years ago, not following with oncologists currently. Patient has not followed up with physicians since 2016. 7) History of dementia, possible depression Assessment/Plan * 11/14/17 As per conversation with daughter in the evening, patient was told that patient has been hiding her medications and not been compliant. She has been letting herself sit in wet diapers for extended periods of time and is not motivated to go to the bathroom. * Psychiatry Dr. Hamilton consulted, help appreciated 8) Prophylaxis * Heparin 5000 units SC q8 * Florastor 250mg BID * Heart healthy diet * PT/OT evaluation * Turn every 2 hours to evaluate for sacral ulcers
[2017-11-15] MEDS ORDERED: Potassium Chloride 20 mEq ER Tab PO SCH (10:00)
[2017-11-15] MEDS: guaiFENesin DM 100 mg-10 mg/5 ml UD PO PRN (10:02)
[2017-11-15] MEDS: Tolterodine 2 mg ER Cap PO SCH ×2 (10:11→18:42)
[2017-11-15] MEDS: Ciprofloxacin 400mg/200ml D5W 400 MG/200 ML BAG IVPB SCH ×2 (11:33→22:32)
--- NOTE | 2017-11-15 12:19 | CARD ---
APPROVED REPORT Date of service: 11/13/2017 EKG Measurement Heart [id number] <Conclusion> Normal sinus rhythm Normal ECG
--- NOTE | 2017-11-15 16:04 | PCM.PYCHPN ---
Psychiatric Progress Note - Psychiatric Progress Note Patient seen today, length of contact: 15 minutes Patient Chief Complaint: I could not stand up Problems Identified/Issues Discussed: Ms. Blanton is an 82-year-old woman who presented to the hospital because she could not stand up from a sitting position. She says that she has been in the hospital since early August - first at [facility] then transferred to [facility]. Her sleep is good, interest level is good, no feelings of guilt, energy has been on a steady decrease with age but there were no abrupt changes, concentration is good, appetite has decreased since being in the hospital. She has no suicidal/ homicidal thoughts. She does not have hallucinations. Her MMSE exam was 26. She has no history of seizures. She reports a good mood and keeping her humor. She lives with her daughter and receives a pension for snf. Diagnostic Results: MMSE = 26 Depression screen = 06/14 Mental Status Examination - Cognitive Function Memory: Impaired, Recent Attention: WNL Concentration: WNL Association: WNL Fund of Knowledge: WNL - Mood Additional comments: Has a good mood, but slightly subdued - Affect Additional comments: Affect is normal and expressive, able to laugh. - Speech Speech: Appropriate - Formal Thought Process Formal Thought Process: No Impairment - Suicidal Ideation Suicidal Ideation: No - Homicidal Ideation Homicidal Ideation: No
[2017-11-15] MEDS: Saccharomyces Boulardi 250 mg Cap PO SCH (17:51)
--- NOTE | 2017-11-15 18:12 | PN ---
DATE: 11/15/2017 SUBJECTIVE: The patient's shortness of breath improved. She denies any retrosternal chest pain. PHYSICAL EXAMINATION: VITAL SIGNS: Blood pressure 122/74, heart rate 69, temperature 98.8, respirations 20. HEENT: Normocephalic. CHEST: Minimal rhonchi. HEART: S1 and S2, regular. ABDOMEN: Soft. EXTREMITIES: Improved leg edema. LABORATORY DATA: Today's SMA-7; sodium 140, potassium 3.3, chloride 104, CO2 of 29, glucose 92, BUN 20, creatinine 0.9. Today's hemoglobin and hematocrit 11.1 and 33.2. White count and platelet count are within normal limit. Chest CT angio performed yesterday revealed no evidence of pulmonary embolus. No acute pulmonary disease. ASSESSMENT: 1. Consider diastolic heart failure. 2. Hypokalemia. 3. Consider underlying pneumonia. RECOMMENDATIONS: Continue aspirin 81 mg once a day, Coreg 3.125 mg once a day, Detrol LA 2 mg p.o. twice a day, heparin 5000 units every 8 hours, K-Dur 40 mEq daily, we will start it today. Continue IV vancomycin at 1 gm every 12 hours. Shamar Pisano MD
[2017-11-15] MEDS: Albuterol-Ipratrop 3 mg / 0.5 (3 ml) UD INH SCH (23:39)
[2017-11-16] MEDS: Albuterol-Ipratrop 3 mg / 0.5 (3 ml) UD INH SCH ×6 (03:11→23:41)
[2017-11-16] MEDS: Vancomycin 1 gm/NS 200 ml 1 GM/200 ML BAG IVPB SCH ×2 (03:32→15:57)
[2017-11-16] MEDS: guaiFENesin DM 100 mg-10 mg/5 ml UD PO PRN ×2 (06:07→18:04)
[2017-11-16 07:19] LABS: BASO # 0.1 K/uL (0.0-0.2); BASO % 1.4 % (0.0-2.0); EOS # 0.3 K/uL (0.0-0.7); EOS % 4.5 % (0.0-4.0); HEMOGLOBIN 10.8 g/dL (11.0-16.0); LYMPH # 2.1 K/uL (1.0-4.3); LYMPH % 32.4 % (20.0-40.0); MEAN CELL VOLUME 92.4 fL (81.0-99.0); MEAN CORPUSCULAR HEMOGLOBIN 30.8 pg (27.0-31.0); MEAN CORPUSCULAR HGB CONC 33.3 g/dL (33.0-37.0); MEAN PLATELET VOLUME 9.1 fL (7.2-11.7); MONO # 0.6 K/uL (0.0-0.8); MONO % 9.4 % (0.0-10.0); NEUT # 3.3 K/uL (1.8-7.0); NEUT % 52.3 % (50.0-75.0); NRBC % 0.1 % (0.0-2.0); RBC 3.51 Mil/uL (3.80-5.20); RED CELL DISTRIBUTION WIDTH 13.3 % (11.5-14.5); WHITE BLOOD COUNT 6.3 K/uL (4.8-10.8)
[2017-11-16 07:37] LABS: ALB/GLOB RATIO 1.1 (1.0-2.1); ALBUMIN 3.2 g/dL (3.5-5.0); ALT/SGPT 23 U/L (9-52); AST/SGOT 18 U/L (14-36); BLOOD UREA NITROGEN 18 mg/dL (7-17); CALCIUM 8.9 mg/dl (8.6-10.4); GFR AFRICAN-AMERICAN > 60; GFR NON-AFRICAN AMERICAN 60
[2017-11-16] MEDS: Saccharomyces Boulardi 250 mg Cap PO SCH ×2 (10:22→18:04)
[2017-11-16] MEDS: Ciprofloxacin 400mg/200ml D5W 400 MG/200 ML BAG IVPB SCH (11:15)
[2017-11-16] MEDS: ETHACRYNIC ACID 25 MG PO SCH (18:06)
--- NOTE | 2017-11-16 18:21 | CP.PCM.PN ---
Addendum entered and electronically signed by Tiffanie Washington DO 11/16/17 18:45: Urine culture growing gram negative rods, 20,000 CFU Original Note: <Tiffanie Washington - Last Filed: 11/16/17 18:43> Subjective - Date & Time of Evaluation Date of Evaluation: 11/16/17 Time of Evaluation: 18:18 - Subjective Subjective: Internal Medicine Progress Note - Hospitalist Service Patient seen and examined at bedside. Per nursing no acute events overnight. Patient states that she feels better, shortness of breath is improving. Still having cough with occasional white sputum production. Reports that her appetite is better today. Denies headaches, dizziness, cp, palpitations, abdominal pain, urinary symptoms, changes in bowel habits. Objective - Vital Signs/Intake and Output Vital Signs (last 24 hours): Temp Pulse Resp BP Pulse Ox 98.0 F 62 20 126/66 100 11/16/17 15:10 11/16/17 15:10 11/16/17 15:10 11/16/17 15:10 11/16/17 15:10 - Medications Medications: Current Medications Albuterol/Ipratropium (Duoneb 3 Mg/0.5 Mg (3 Ml) Ud) 3 ml INH RQ4 [facility] Last Admin: 11/16/17 16:11 Dose: 3 ml Aspirin (Aspirin Chewable) 81 mg PO DAILY [facility] Last Admin: 11/16/17 10:20 Dose: 81 mg Benzonatate (Tessalon Perles) 100 mg PO TID [facility] Last Admin: 11/16/17 18:04 Dose: 100 mg Carvedilol (Coreg) 3.125 mg PO BID [facility] Last Admin: 11/16/17 18:04 Dose: 3.125 mg Donepezil HCl (Aricept) 10 mg PO HS [facility] Last Admin: 11/15/17 21:53 Dose: 10 mg Famotidine (Pepcid) 20 mg PO DAILY [facility] Last Admin: 11/16/17 10:20 Dose: 20 mg Gabapentin (Neurontin) 600 mg PO HS [facility] Last Admin: 11/15/17 21:54 Dose: 600 mg Guaifenesin/Dextromethorphan (Robitussin Dm) 5 ml PO Q6H PRN PRN Reason: Cough Last Admin: 11/16/17 18:04 Dose: 5 ml Heparin Sodium (Porcine) (Heparin) 5,000 units SC Q8 [facility] Last Admin: 11/16/17 13:11 Dose: 5,000 units Home Med (Patient's Own Medication) 1 tab PO BID [facility] Last Admin: 11/16/17 18:06 Dose: 1 tab Ciprofloxacin (Cipro 400mg/200ml Dsw) 400 mg in 200 mls @ 133 mls/hr IVPB Q12H [facility] PRN Reason: Protocol Last Admin: 11/16/17 11:15 Dose: 133 mls/hr Vancomycin/Sodium Chloride (Vancomycin 1 Gm/Ns 200 Ml) 1 gm in 200 mls @ 133.333 mls/hr IVPB Q12H [facility] PRN Reason: Protocol Last Admin: 11/16/17 15:57 Dose: 133.333 mls/hr Lisinopril (Zestril) 5 mg PO DAILY [facility] Saccharomyces Boulardii (Florastor) 250 mg PO BID [facility] Last Admin: 11/16/17 18:04 Dose: 250 mg Tolterodine Tartrate (Detrol) 2 mg PO BID [facility] Last Admin: 11/16/17 18:06 Dose: 2 mg - Labs Labs: 11/16/17 07:11 11/16/17 07:11 - Constitutional Appears: Non-toxic, No Acute Distress - Head Exam Head Exam: ATRAUMATIC, NORMAL INSPECTION, NORMOCEPHALIC - Eye Exam Eye Exam: EOMI, Normal appearance Pupil Exam: NORMAL ACCOMODATION - ENT Exam ENT Exam: Mucous Membranes Moist - Neck Exam Neck Exam: Full ROM - Respiratory Exam Respiratory Exam: Decreased Breath Sounds, NORMAL BREATHING PATTERN. absent: Clear to Ausculation Bilateral, Rales, Rhonchi, Wheezes - Cardiovascular Exam Cardiovascular Exam: REGULAR RHYTHM, +S1, +S2 - GI/Abdominal Exam GI & Abdominal Exam: Soft, Normal Bowel Sounds. absent: Guarding, Rigid, Tenderness - Extremities Exam Extremities Exam: Calf Tenderness, Full ROM Additional comments: Left sided calf tenderness, +pedal pulses bilaterally - Back Exam Back Exam: NORMAL INSPECTION - Neurological Exam Neurological Exam: Alert, Awake, Oriented x3 - Psychiatric Exam Psychiatric exam: Normal Affect, Normal Mood - Skin Skin Exam: Dry, Normal Color, Warm Assessment and Plan - Assessment and Plan (Free Text) Assessment: A/P: Patient is a 82 year old female with past medical history of Diastolic CHF , HTN, Bladder cancer presented to the hospital for dyspnea and cough Shortness of breath secondary to Acute on Chronic Diastolic CHF -Stable, afebrile -Monitor on telemetry -Patient is allergic to Lasix and sulfa drugs -Will start home dose of Ethacrynic Acid 25mg PO BID -Continue Coreg 3.125mg PO BID, ASA 81mg PO daily -Daily weights/Strict I/Os, Sctivity OOB to chair -Last echo 07/2017 showed EF 55% -Cardiology on consult, Dr Pisano, help appreciated -Nephrology on consult, Dr Go, help appreciated -PT eval ordered Cough secondary to Bronchitis, R/O HCAP -Afebrile, no leukocytosis -Antibiotics: Ciprofloxacin 400mg IVPB Q12H (11/14), Vancomycin 1 gm Q12H (11/14) Florastor 250mg PO BID -Mycoplasma negative -Urine Strep pneumonia, urine legionella pending -Continue Duonebs Q4H [facility] -Tessalon pearls 100mg TID, Robitussin 5ml PO Q6H Hypertension -Continue Lisinopril 5mg PO daily, Coreg 3.125mg PO BID -Monitor vitals Abnormal UA/Urinary Tract Infection -UA on admission showed 3+ leuk esterase, WBC 186 -Urine culture grew gram positive cocci 20,000 CFU -Will continue Ciprofloxacin 400mg Q12H to complete 5 day course (Last dose to be given 11/18) Hypokalemia -Potassium 4.1 -Continue to monitor and replete as needed Left Lower extremity pain, R/O DVT -CT angio: no acute pulmonary embolism. no evidence of acute pulmonary disease Lower extremity dopplers: Bilateral peroneal veins are not well visualized due to swelling. There is no evidence of venous thrombosis for the remaining veins in bilateral lower extremities. -Pain could be secondary to peripheral neuropathy -Continue Gabapentin 600mg PO HS History of Bladder CA/ Bladder Incontinence -Continue Detrol 2mg PO BID -As per daughter Mihaela, patient had 2 surgeries for bladder cancer 8-10 years ago, -Not following with oncologists currently. -Patient has not followed up with physicians since 2016. History of dementia, possible depression -Continue Aricept 10mg PO HS -As per conversation with daughter in the evening, patient was told that patient has been hiding her medications and not been compliant. She has been letting herself sit in wet diapers for extended periods of time and is not motivated to go to the bathroom. -Psychiatry Dr. Hamilton consulted, help appreciated GI/DVT ppx: Heparin 5000 units SC Q8H Pepcid 20mg PO daily DISPO: PT is recommending [facility] for disposition. Patient was recently discharged from [facility] home and came to the ED 1 week later. Will likely be discharged home with services. Will follow up with [facility] [employer] on Saturday. Plan discussed with Dr Velasquez. Tiffanie Washington DO PGY-2 <Oneyda Velasquez V - Last Filed: 11/16/17 20:54> Objective - Vital Signs/Intake and Output Vital Signs (last 24 hours): Temp Pulse Resp BP Pulse Ox 98.0 F 62 20 126/66 100 11/16/17 15:10 11/16/17 15:10 11/16/17 15:10 11/16/17 15:10 11/16/17 15:10 - Medications Medications: Current Medications Albuterol/Ipratropium (Duoneb 3 Mg/0.5 Mg (3 Ml) Ud) 3 ml INH RQ4 [facility] Last Admin: 11/16/17 19:43 Dose: 3 ml Aspirin (Aspirin Chewable) 81 mg PO DAILY [facility] Last Admin: 11/16/17 10:20 Dose: 81 mg Benzonatate (Tessalon Perles) 100 mg PO TID [facility] Last Admin: 11/16/17 18:04 Dose: 100 mg Carvedilol (Coreg) 3.125 mg PO BID [facility] Last Admin: 11/16/17 18:04 Dose: 3.125 mg Donepezil HCl (Aricept) 10 mg PO HS [facility] Last Admin: 11/15/17 21:53 Dose: 10 mg Famotidine (Pepcid) 20 mg PO DAILY [facility] Last Admin: 11/16/17 10:20 Dose: 20 mg Gabapentin (Neurontin) 600 mg PO HS [facility] Last Admin: 11/15/17 21:54 Dose: 600 mg Guaifenesin/Dextromethorphan (Robitussin Dm) 5 ml PO Q6H PRN PRN Reason: Cough Last Admin: 11/16/17 18:04 Dose: 5 ml Heparin Sodium (Porcine) (Heparin) 5,000 units SC Q8 [facility] Last Admin: 11/16/17 13:11 Dose: 5,000 units Home Med (Patient's Own Medication) 1 tab PO BID [facility] Last Admin: 11/16/17 18:06 Dose: 1 tab Ciprofloxacin (Cipro 400mg/200ml Dsw) 400 mg in 200 mls @ 133 mls/hr IVPB Q12H [facility] PRN Reason: Protocol Last Admin: 11/16/17 11:15 Dose: 133 mls/hr Lisinopril (Zestril) 5 mg PO DAILY [facility] Saccharomyces Boulardii (Florastor) 250 mg PO BID [facility] Last Admin: 11/16/17 18:04 Dose: 250 mg Tolterodine Tartrate (Detrol) 2 mg PO BID [facility] Last Admin: 11/16/17 18:06 Dose: 2 mg - Labs Labs: 11/16/17 07:11 11/16/17 07:11 Attending/Attestation - Attestation I have personally seen and examined this patient.: Yes I have fully participated in the care of the patient.: Yes I have reviewed all pertinent clinical information, including history, physical exam and plan: Yes Notes (Text): Patient seen, examined, case discussed with chief medical physicist. Patient reports breathing is about the same does have mild productive cough. Patient reports appetite is markedly improved. Patient reports she hasn't come out of bed. Resident has spoken with patient's daughter who is brought in the bottle so we can start after her Ethacrynic 25mg PO BID to help diuresis. Assessment/Plan 1) Dyspnea Acute on chronic diastolic Congestive heart failure exacerbation Assessment/Plan * Cardiology Dr. Pisano consulted, help appreciated. * Monitor on telemetry * Discontinued Aspirin 81 mg 1 tab daily in light of prior history of brain hemorrhage * Coreg 3.125 mg 1 tab by mouth twice a day * Start lisinopril 5 mg by mouth daily * 11/14: Unable to give Lasix secondary to sulfur allergy side effect flushing and possible anaphylactic symptoms. Patient noted to have "bad" reaction. * 11/15: We have attempted to retrieve alternative to Lasix: However 1 not available on a hospital formulary, 2 patient daughter unable to bring in valid prescription bottle and therefore pharmacy would not accepted in 3 there is no alternate we'll consult nephrology if there is. * 11/16: Daughter was able to bring in the bottle; will start Etharynic acid 25mg PO BID (home medication) * CT angiogram 11/14/2017 indicates no evidence of pulmonary embolus and no evidence of acute pathology disease. * Lower extremity dopplers: Bilateral peroneal veins are not well visualized due to swelling. There is no evidence of venous thrombosis for the remaining veins in bilateral lower extremities. * Daily weights * I&Os 2) Possible pneumonia Bronchitis Assessment/Plan * White count normalized * CT angiogram 11/14/2017 indicates no evidence of pulmonary embolus and no evidence of acute pathology disease. * Duonebs Q4H scheduled * Robitussin 5 mL by mouth every 6 when necessary cough * Tessalon Perles 100 mg by mouth 3 times a day 3) Hypokalemia Assessment/Plan * Monitor and replete 4) Urinary Tract Infection Hx of urinary incontinence Hx of Bladder Cancer Assessment/Plan * Ciprofloxacin 400mg IV Q12H (active since 11/14/17) * Urine culture November 14 gram-negative sage * We'll repeat urine culture tomorrow. * Florastor 250 by mouth twice a day * Patient appears dehydrated urinary tract infection and completed 14 days of IV antibiotics at rehabilitation noting prior hospitalization 5) Bilateral lower extremity edema, Venous stasis changes Assessment/Plan * Lower extremity dopplers: Bilateral peroneal veins are not well visualized due to swelling. There is no evidence of venous thrombosis for the remaining veins in bilateral lower extremities. * CT angiogram 11/14/2017 indicates no evidence of pulmonary embolus and no evidence of acute pathology disease. * Gabapentin 600mg PO HS 6) History of bladder cancer Assessment/Plan * As per daughter Mihaela, patient had 2 surgeries for bladder cancer 8-10 years ago, not following with oncologists currently. Patient has not followed up with physicians since 2016. * Detrol 2 mg by mouth twice a day 7) History of dementia, possible depression Assessment/Plan * 11/14/17 As per conversation with daughter in the evening, patient was told that patient has been hiding her medications and not been compliant. She has been letting herself sit in wet diapers for extended periods of time and is not motivated to go to the bathroom. * Aricept 10 mg by mouth daily at bedtime * Psychiatry Dr. Hamilton consulted, help appreciated 8) Prophylaxis * Contraindication chemical anticoagulation secondary to prior history of brain hemorrhage * Florastor 250mg BID * Pepcid 20 not by mouth daily * Heart healthy diet * PT/OT evaluation * Turn every 2 hours to evaluate for sacral ulcers
--- NOTE | 2017-11-16 22:49 | PN ---
DATE: 11/16/2017 SUBJECTIVE: The patient is still experiencing cough. Her shortness of breath has improved. She denies exertional chest pain. PHYSICAL EXAMINATION: VITAL SIGNS: Blood pressure 126/66, heart rate 62, temperature 98, respirations 20. HEENT: Normocephalic. CHEST: Absent breath sounds over the bases. HEART: S1 and S2 regular. ABDOMEN: Soft. EXTREMITIES: 1+ pitting edema. LABORATORY DATA: Today's hemoglobin and hematocrit 10.8 and 32.4. White count and platelet count are within normal limits. Today's SMA-7 is within normal limits except for BUN of 18. ASSESSMENT: 1. Diastolic heart failure. 2. Pneumonia. 3. Improved hypokalemia. 4. Secondary pulmonary hypertension. RECOMMENDATIONS: Case was discussed with the primary physician. The patient will be maintained on Aricept 10 mg at bedtime, aspirin 81 mg once a day, IV Cipro at 400 mg every 12 hours, Coreg at 3.125 mg twice a day, heparin 5000 units every 8 hours, Neurontin 600 mg at bedtime, Pepcid 20 mg once a day, vancomycin 1 gm every 12 hours. I was told that the patient has ALLERGIC REACTION TO LASIX, and for that reason, I will discontinue Lasix. The patient was on ethacrynic acid as a diuretic at home. Shamar Pisano MD
--- NOTE | 2017-11-17 00:04 | CON ---
DATE: 11/16/2017 NEPHROLOGY CONSULTATION HISTORY OF PRESENT ILLNESS: The patient is an 82-year-old female with past medical history of hypertension, CHF, status post brain aneurysm, status post carotid surgery, and bladder cancer, presented to ED with weakness, shortness of breath, and progressive cough. Nephrology now being consulted for diuretic management. The patient was admitted to [facility] in late 07/2017 with shortness of breath and acute decompensated CHF. During that admission, the patient was placed on metolazone 2.5 mg daily with ensuing acute kidney injury. Of note, the patient had also been on losartan and intermittent NSAIDs during that period. The patient responded well to IV fluids with renal function returning back to normal and was discharged to nursing facility. The patient was just discharged from rehab facility to home just before one week ago. The patient is otherwise a poor historian, but says that she has been bedridden. Main complaint is her cough, this has been going on for quite a while. Otherwise, denies any chest pains or palpitations. Cannot comment on her leg swelling. Is incontinent of urine at times, but denies any dysuria. Complaining of left foot pain, but does not take any pain medications. PAST MEDICAL HISTORY: As above. SOCIAL HISTORY: Previous smoker. ALLERGIES: SULFA ALLERGY WITH REPORTED ANAPHYLAXIS, FUROSEMIDE, PENICILLIN ALLERGY (RASH). REVIEW OF SYSTEMS: CONSTITUTIONAL: Has been eating well. Good appetite. HEENT: No difficulty swallowing. RESPIRATORY: As per HPI. CARDIOVASCULAR: No chest pain or palpitations. GI: No nausea, vomiting, or diarrhea. : As per HPI. MUSCULOSKELETAL: Left foot pain. SKIN: Denies any itching or rashes. HEMATOLOGIC: Denies easy bruising. PSYCHIATRIC: No anxiety issues. PHYSICAL EXAMINATION: VITAL SIGNS: This morning blood pressure 122/74, heart rate 70, respirations 20, temperature 97.5, O2 saturation 98% on 2 L O2 via nasal cannula. GENERAL: No distress. Conversing coherent and pleasant. HEENT: Moist mucous membranes. Nonicteric. No cervical lymphadenopathy. RESPIRATORY: Lungs clear to auscultation bilaterally. No rales or rhonchi. No wheezes. CARDIOVASCULAR: Heart sounds S1 and S2 normal. No murmurs. No gallops. No rubs. No JVD. GASTROINTESTINAL: Abdomen is soft, nontender, and nondistended. GENITOURINARY: Some suprapubic tenderness, otherwise no bladder distention. EXTREMITIES: Trace bilateral lower leg edema. Shriveled skin over bilateral lower legs. SKIN: Warm. No cyanosis. No ulcers over feet. NEUROLOGIC: No resting tremor. No numbness of feet. PSYCHIATRIC: Normal mood. Normal affect. LABORATORY DATA: CBC this morning, WBC 6.3, hemoglobin 10.8, hematocrit 32.4, and platelets 285. Chemistry panel: Sodium 139, potassium 4.1, chloride 106, bicarbonate 27, BUN 18, creatinine 0.9, glucose 100, calcium 8.9, phosphorus 4, magnesium 2. AST 18, ALT 23, albumin 3.2. Urine studies: 1+ blood with 10 wbc's per high-powered field, 32 rbc's per high-powered field, 3 to 5 hyaline casts, rare bacteria. ASSESSMENT AND PLAN: 1. Congestive heart failure, the patient with diastolic dysfunction reported on previous echocardiogram; otherwise appears relatively compensated, euvolemic on exam. The patient currently was on acid at home. If this can be restarted, should start at low dose 25 mg once daily as the patient already has some evidence of vascular volume fraction with elevated BUN and her exam is indicative of her already having been diuresed, shriveled skin over bilateral lower legs. If acid cannot be resumed during hospitalization, then Dyazide diuretic is a possible alternative as the patient was tried on metolazone without any reported adverse reaction to the drug itself. Chlorthalidone 25 mg once daily is an option, although Dyazide do contain moiety, but since it was tolerated previously, we can give a trial as needed of those medicines; 2. Azotemia, elevated BUN, likely indicative of some degree of volume contraction. Recommend to diurese carefully if clinically needed at all. 3. Hypertension, blood pressure currently controlled. The patient only on Coreg 3.125 mg b.i.d. Continue the same. We would avoid ARB as this can help precipitate acute kidney injury as was seen during previous admission. 4. Hypokalemia, currently resolved. Need to monitor frequently if starting loop diuretic. 5. Left foot pain, relatively mild. We will check uric acid level. Recommend to avoid nonsteroidal antiinflammatory drugs as this may help precipitate acute kidney injury. This patient is already having evidence of volume contraction. Thank you for this referral. We will be following up closely. Ervin Go MD
[2017-11-17] MEDS: Ciprofloxacin 400mg/200ml D5W 400 MG/200 ML BAG IVPB SCH (00:25)
[2017-11-17] MEDS: Albuterol-Ipratrop 3 mg / 0.5 (3 ml) UD INH SCH ×5 (03:08→19:55)
[2017-11-17 07:53] LABS: BASO # 0.1 K/uL (0.0-0.2); BASO % 0.7 % (0.0-2.0); EOS # 0.4 K/uL (0.0-0.7); EOS % 5.6 % (0.0-4.0); HEMOGLOBIN 10.2 g/dL (11.0-16.0); LYMPH # 1.6 K/uL (1.0-4.3); LYMPH % 24.1 % (20.0-40.0); MEAN CELL VOLUME 91.7 fL (81.0-99.0); MEAN CORPUSCULAR HEMOGLOBIN 31.2 pg (27.0-31.0); MEAN PLATELET VOLUME 8.4 fL (7.2-11.7); MONO # 0.8 K/uL (0.0-0.8); MONO % 12.1 % (0.0-10.0); NEUT # 3.9 K/uL (1.8-7.0); NEUT % 57.5 % (50.0-75.0); RBC 3.27 Mil/uL (3.80-5.20); RED CELL DISTRIBUTION WIDTH 13.4 % (11.5-14.5); WHITE BLOOD COUNT 6.7 K/uL (4.8-10.8)
[2017-11-17 08:09] LABS: ALB/GLOB RATIO 1.1 (1.0-2.1); ALBUMIN 2.9 g/dL (3.5-5.0); ALT/SGPT 17 U/L (9-52); AST/SGOT 21 U/L (14-36); BLOOD UREA NITROGEN 15 mg/dL (7-17); CALCIUM 8.4 mg/dl (8.6-10.4); GFR AFRICAN-AMERICAN > 60; GFR NON-AFRICAN AMERICAN 60; URIC ACID 5.9 mg/dL (2.2-7.5)
[2017-11-17] MEDS: Saccharomyces Boulardi 250 mg Cap PO SCH ×2 (09:28→17:20)
[2017-11-17] MEDS: guaiFENesin DM 100 mg-10 mg/5 ml UD PO PRN ×2 (09:29→17:28)
[2017-11-17] MEDS: ETHACRYNIC ACID 25 MG PO SCH ×2 (09:30→17:20)
--- NOTE | 2017-11-17 11:06 | CP.PCM.PN ---
<Tiffanie Washington - Last Filed: 11/17/17 11:15> Subjective - Date & Time of Evaluation Date of Evaluation: 11/17/17 Time of Evaluation: 11:02 - Subjective Subjective: Internal Medicine Progress Note- Hospitalist service Patient seen and examined at bedside. Per nursing no acute events overnight. Patient still with cough. States that cough is not productive. Breathing is better. Offers no other complaints at this time. Denies headaches, dizziness, cp , palpitations, sob, abdominal pain, urinary symptoms, changes in bowel habits. Objective - Vital Signs/Intake and Output Vital Signs (last 24 hours): Temp Pulse Resp BP Pulse Ox 98.3 F 70 20 115/72 97 11/17/17 07:00 11/17/17 07:40 11/17/17 07:00 11/17/17 07:00 11/17/17 07:00 - Medications Medications: Current Medications Albuterol/Ipratropium (Duoneb 3 Mg/0.5 Mg (3 Ml) Ud) 3 ml INH RQ4 [facility] Last Admin: 11/17/17 07:42 Dose: 3 ml Aspirin (Ecotrin) 81 mg PO DAILY [facility] Benzonatate (Tessalon Perles) 100 mg PO TID [facility] Last Admin: 11/17/17 09:28 Dose: 100 mg Carvedilol (Coreg) 3.125 mg PO BID [facility] Last Admin: 11/17/17 09:27 Dose: 3.125 mg Donepezil HCl (Aricept) 10 mg PO HS [facility] Last Admin: 11/16/17 21:33 Dose: 10 mg Famotidine (Pepcid) 20 mg PO DAILY [facility] Last Admin: 11/17/17 09:28 Dose: 20 mg Gabapentin (Neurontin) 600 mg PO HS [facility] Last Admin: 11/16/17 21:33 Dose: 600 mg Guaifenesin/Dextromethorphan (Robitussin Dm) 5 ml PO Q6H PRN PRN Reason: Cough Last Admin: 11/17/17 09:29 Dose: 5 ml Heparin Sodium (Porcine) (Heparin) 5,000 units SC Q8 [facility] Home Med (Patient's Own Medication) 1 tab PO BID [facility] Last Admin: 11/17/17 09:30 Dose: 1 tab Ciprofloxacin (Cipro 400mg/200ml Dsw) 400 mg in 200 mls @ 133 mls/hr IVPB Q12H [facility] PRN Reason: Protocol Lisinopril (Zestril) 5 mg PO DAILY [facility] Last Admin: 11/17/17 09:28 Dose: 5 mg Saccharomyces Boulardii (Florastor) 250 mg PO BID [facility] Last Admin: 11/17/17 09:28 Dose: 250 mg Tolterodine Tartrate (Detrol) 2 mg PO BID [facility] Last Admin: 11/17/17 10:58 Dose: 2 mg - Labs Labs: 11/17/17 07:48 11/17/17 07:48 - Additional Findings Additional findings: - Constitutional Appears: Non-toxic, No Acute Distress - Head Exam Head Exam: ATRAUMATIC, NORMAL INSPECTION, NORMOCEPHALIC - Eye Exam Eye Exam: EOMI, Normal appearance Pupil Exam: NORMAL ACCOMODATION - ENT Exam ENT Exam: Mucous Membranes Moist - Neck Exam Neck Exam: Full ROM - Respiratory Exam Respiratory Exam: Decreased Breath Sounds, NORMAL BREATHING PATTERN, +Wheezing bilaterally. absent: Clear to Ausculation Bilateral, Rales, Rhonchi - Cardiovascular Exam Cardiovascular Exam: REGULAR RHYTHM, +S1, +S2 - GI/Abdominal Exam GI & Abdominal Exam: Soft, Normal Bowel Sounds. absent: Guarding, Rigid, Tenderness - Extremities Exam Extremities Exam: Calf Tenderness, Full ROM Additional comments: Left sided calf tenderness, +pedal pulses bilaterally - Back Exam Back Exam: NORMAL INSPECTION - Neurological Exam Neurological Exam: Alert, Awake, Oriented x3 - Psychiatric Exam Psychiatric exam: Normal Affect, Normal Mood - Skin Skin Exam: Dry, Normal Color, Warm Assessment and Plan - Assessment and Plan (Free Text) Assessment: A/P: Patient is a 82 year old female with past medical history of Diastolic CHF , HTN, Bladder cancer presented to the hospital for dyspnea and cough Shortness of breath secondary to Acute on Chronic Diastolic CHF -Stable, afebrile -Monitor on telemetry -Patient is allergic to Lasix and sulfa drugs -Will start home dose of Ethacrynic Acid 25mg PO BID -Continue Coreg 3.125mg PO BID, ASA 81mg PO daily -Daily weights/Strict I/Os, Sctivity OOB to chair -Last echo 07/2017 showed EF 55% -Cardiology on consult, Dr Pisano, help appreciated -Nephrology on consult, Dr Go, help appreciated -PT eval ordered Cough secondary to Bronchitis, R/O HCAP -Afebrile, no leukocytosis -Continue Duonebs Q6H [facility] -CT chest There is no evidence of pneumonia or mass lesion in the lungs. -Antibiotics: Ciprofloxacin 400mg IVPB Q12H (11/14), Vancomycin 1 gm Q12H (11/14) Florastor 250mg PO BID -Mycoplasma negative -Urine Strep pneumonia, urine legionella pending -Continue Duonebs Q4H [facility] -Tessalon pearls 100mg TID, Robitussin 5ml PO Q6H Hypertension -Continue Lisinopril 5mg PO daily, Coreg 3.125mg PO BID -Monitor vitals Abnormal UA/Urinary Tract Infection -UA on admission showed 3+ leuk esterase, WBC 186 -Urine culture grew gram negative rods 20,000 CFU -Repeat UA and urine culture ordered -Will continue Ciprofloxacin 400mg Q12H to complete 5 day course (Last dose to be given 11/18) Hypokalemia -Potassium 4.1 -Continue to monitor and replete as needed Left Lower extremity pain, R/O DVT -CT angio: no acute pulmonary embolism. no evidence of acute pulmonary disease Lower extremity dopplers: Bilateral peroneal veins are not well visualized due to swelling. There is no evidence of venous thrombosis for the remaining veins in bilateral lower extremities. -Pain could be secondary to peripheral neuropathy -Continue Gabapentin 600mg PO HS History of Bladder CA/ Bladder Incontinence -Continue Detrol 2mg PO BID -As per daughter Mihaela, patient had 2 surgeries for bladder cancer 8-10 years ago, -Not following with oncologists currently. -Patient has not followed up with physicians since 2016. History of dementia, possible depression -Continue Aricept 10mg PO HS -As per conversation with daughter in the evening, patient was told that patient has been hiding her medications and not been compliant. She has been letting herself sit in wet diapers for extended periods of time and is not motivated to go to the bathroom. -Psychiatry Dr. Hamilton consulted, help appreciated History of Brain aneurysm and Hemorrhage -Per the patient, this occurred over 30 years ago -Denies any recent bleeding episodes -Will resume Heparin 5000 units Q8H and ASA 81mg PO daily GI/DVT ppx: -Will resume Heparin 5000 units SC Q8H -Pepcid 20mg PO daily DISPO: PT is recommending [facility] for disposition. Patient was recently discharged from [facility] home and came to the ED 1 week later. Will likely be discharged home with services. Will follow up with [facility] on Saturday. Plan discussed with Dr Denton. Tiffanie Washington DO PGY-2 <Jinny Denton - Last Filed: 11/17/17 19:33> Objective - Vital Signs/Intake and Output Vital Signs (last 24 hours): Temp Pulse Resp BP Pulse Ox 98.1 F 70 20 122/56 L 99 11/17/17 15:05 11/17/17 17:22 11/17/17 15:05 11/17/17 17:22 11/17/17 15:05 - Medications Medications: Current Medications Albuterol/Ipratropium (Duoneb 3 Mg/0.5 Mg (3 Ml) Ud) 3 ml INH RQ4 [facility] Last Admin: 11/17/17 15:53 Dose: 3 ml Aspirin (Ecotrin) 81 mg PO DAILY [facility] Benzonatate (Tessalon Perles) 100 mg PO TID [facility] Last Admin: 11/17/17 17:20 Dose: 100 mg Carvedilol (Coreg) 3.125 mg PO BID [facility] Last Admin: 11/17/17 17:21 Dose: 3.125 mg Donepezil HCl (Aricept) 10 mg PO HS [facility] Last Admin: 11/16/17 21:33 Dose: 10 mg Famotidine (Pepcid) 20 mg PO DAILY [facility] Last Admin: 11/17/17 09:28 Dose: 20 mg Gabapentin (Neurontin) 600 mg PO HS [facility] Last Admin: 11/16/17 21:33 Dose: 600 mg Guaifenesin/Dextromethorphan (Robitussin Dm) 5 ml PO Q6H PRN PRN Reason: Cough Last Admin: 11/17/17 17:28 Dose: 5 ml Heparin Sodium (Porcine) (Heparin) 5,000 units SC Q8 [facility] Last Admin: 11/17/17 13:15 Dose: 5,000 units Home Med (Patient's Own Medication) 1 tab PO BID [facility] Last Admin: 11/17/17 17:20 Dose: 1 tab Ciprofloxacin (Cipro 400mg/200ml Dsw) 400 mg in 200 mls @ 133 mls/hr IVPB Q12H [facility] PRN Reason: Protocol Last Admin: 11/17/17 12:14 Dose: 133 mls/hr Lisinopril (Zestril) 5 mg PO DAILY [facility] Last Admin: 11/17/17 09:28 Dose: 5 mg Saccharomyces Boulardii (Florastor) 250 mg PO BID [facility] Last Admin: 11/17/17 17:20 Dose: 250 mg Tolterodine Tartrate (Detrol) 2 mg PO BID [facility] Last Admin: 11/17/17 17:20 Dose: 2 mg - Labs Labs: 11/17/17 07:48 11/17/17 07:48 Attending/Attestation - Attestation I have personally seen and examined this patient.: Yes I have fully participated in the care of the patient.: Yes I have reviewed all pertinent clinical information, including history, physical exam and plan: Yes Notes (Text): Patient was seen and examined by me with the resident She is lying comfortable,Has wet cough,no abdominal pain. H/o bladder cancer and surgery few years ago,Has recurrent UTI As per daughter Mari , she gets rash with penicillin ,no fever,no leukocytosis On examination she has wheeze present on both Lungs, abdomen obese and soft no fever,urine c/s noted .resistant to cipro Try ceftriaxone toningh,if she tolerates we will continue while she is here d/w resident I agree with the documentation of the assessment and the plan
[2017-11-17] MEDS ORDERED: Ciprofloxacin 400mg/200ml D5W 400 MG/200 ML BAG IVPB SCH ×2 (11:30→12:00)
[2017-11-17] MEDS ORDERED: cefTRIAXone IV 1 gm in Dextros 50 ML IVPB STA (19:10)
[2017-11-17 19:38] LABS: SQUAMOUS EPITHIAL 1 /hpf (0-5); URINE BACTERIA RARE (<OCC); URINE BILIRUBIN NEGATIVE (NEGATIVE); URINE BLOOD NEGATIVE (NEGATIVE); URINE CLARITY Clear (Clear); URINE COLOR Yellow (YELLOW); URINE GLUCOSE (UA) NORMAL (Normal); URINE LEUKOCYTE ESTERASE NEG Leu/uL (Negative); URINE PROTEIN NEGATIVE (NEGATIVE); URINE UROBILINOGEN NORMAL mg/dL (0.2-1.0)
--- NOTE | 2017-11-17 22:11 | PN ---
DATE: 11/17/2017 SUBJECTIVE: The patient is still experiencing productive cough. She denies any exertional chest pain. PHYSICAL EXAMINATION: VITAL SIGNS: Blood pressure 115/72, heart rate 68, temperature 98.3, respirations 20. HEENT: Normocephalic. CHEST: Absent breath sounds over the bases and scattered bilateral rhonchi. HEART: S1 and S2 regular. ABDOMEN: Soft. EXTREMITIES: Trace leg edema. LABORATORY DATA: Today's SMA-7 is entirely within normal limit. Calcium is 8.4, slightly below normal. Today's hemoglobin and hematocrit 10.2 and 30, white count and platelet count are within normal limit. Urine culture is positive for Proteus mirabilis. ASSESSMENT: 1. Diastolic left ventricular dysfunction. 2. Pneumonia. 3. Proteus mirabilis urinary tract infection. 4. Secondary pulmonary hypertension. 5. Mild anemia. 6. Mild hypocalcemia. RECOMMENDATIONS: Continue Coreg 3.125 mg twice a day, aspirin 81 mg once a day, subcutaneous heparin 5000 units every 8 hours, Zestril at 5 mg once a day, Robitussin-DM 5 mL every 6 hours p.r.n., Neurontin 600 mg at bedtime. Shamar Pisano MD
[2017-11-18] MEDS: Albuterol-Ipratrop 3 mg / 0.5 (3 ml) UD INH SCH ×6 (00:27→19:41)
[2017-11-18 06:54] LABS: BASO # 0.1 K/uL (0.0-0.2); BASO % 0.9 % (0.0-2.0); EOS # 0.4 K/uL (0.0-0.7); EOS % 5.7 % (0.0-4.0); HEMOGLOBIN 10.8 g/dL (11.0-16.0); LYMPH % 28.5 % (20.0-40.0); MEAN CELL VOLUME 91.7 fL (81.0-99.0); MEAN CORPUSCULAR HEMOGLOBIN 30.3 pg (27.0-31.0); MEAN PLATELET VOLUME 8.4 fL (7.2-11.7); MONO # 0.8 K/uL (0.0-0.8); NEUT # 3.7 K/uL (1.8-7.0); NEUT % 53.9 % (50.0-75.0); RBC 3.56 Mil/uL (3.80-5.20); RED CELL DISTRIBUTION WIDTH 13.3 % (11.5-14.5); WHITE BLOOD COUNT 6.9 K/uL (4.8-10.8)
[2017-11-18 07:40] LABS: ALB/GLOB RATIO 1.3 (1.0-2.1); ALBUMIN 3.3 g/dL (3.5-5.0); CALCIUM 8.6 mg/dl (8.6-10.4)
--- NOTE | 2017-11-18 10:02 | CP.PCM.PN ---
<Carlos Jimenes - Last Filed: 11/18/17 20:19> Subjective - Date & Time of Evaluation Date of Evaluation: 11/18/17 Time of Evaluation: 10:01 - Subjective Subjective: Progress Note for Hospitalist service Patient was seen and examined at bedside. She states that her cough is improved , however still persistent and productive of white sputum. States she is able to breathe better and states her pain in her feet is better. She is eating well. She denies fevers, chills, headache, lightheadedness, chest pain, shortness of breath, palpitations, abdominal pain, nausea, vomiting, diarrhea, constipation, dysuria. Daughter not present at bedside. Objective - Vital Signs/Intake and Output Vital Signs (last 24 hours): Temp Pulse Resp BP Pulse Ox 98.2 F 73 18 110/55 L 97 11/18/17 07:50 11/18/17 07:50 11/18/17 07:50 11/18/17 07:50 11/18/17 07:50 - Medications Medications: Current Medications Albuterol/Ipratropium (Duoneb 3 Mg/0.5 Mg (3 Ml) Ud) 3 ml INH RQ4 [facility] Last Admin: 11/18/17 08:16 Dose: 3 ml Aspirin (Ecotrin) 81 mg PO DAILY [facility] Benzonatate (Tessalon Perles) 100 mg PO TID [facility] Last Admin: 11/17/17 17:20 Dose: 100 mg Carvedilol (Coreg) 3.125 mg PO BID [facility] Last Admin: 11/17/17 17:21 Dose: 3.125 mg Donepezil HCl (Aricept) 10 mg PO HS [facility] Last Admin: 11/17/17 21:25 Dose: 10 mg Famotidine (Pepcid) 20 mg PO DAILY [facility] Last Admin: 11/17/17 09:28 Dose: 20 mg Gabapentin (Neurontin) 600 mg PO HS [facility] Last Admin: 11/17/17 21:25 Dose: 600 mg Guaifenesin/Dextromethorphan (Robitussin Dm) 5 ml PO Q6H PRN PRN Reason: Cough Last Admin: 11/17/17 17:28 Dose: 5 ml Heparin Sodium (Porcine) (Heparin) 5,000 units SC Q8 [facility] Last Admin: 11/18/17 05:33 Dose: 5,000 units Home Med (Patient's Own Medication) 1 tab PO BID [facility] Last Admin: 11/17/17 17:20 Dose: 1 tab Lisinopril (Zestril) 5 mg PO DAILY [facility] Last Admin: 11/17/17 09:28 Dose: 5 mg Saccharomyces Boulardii (Florastor) 250 mg PO BID [facility] Last Admin: 11/17/17 17:20 Dose: 250 mg Tolterodine Tartrate (Detrol) 2 mg PO BID [facility] Last Admin: 11/17/17 17:20 Dose: 2 mg - Labs Labs: 11/18/17 06:43 11/18/17 06:43 - Constitutional Appears: Well, No Acute Distress, Other (Patient has good appetite, eating her breakfast. ) - Head Exam Head Exam: ATRAUMATIC, NORMOCEPHALIC - Eye Exam Eye Exam: EOMI - ENT Exam ENT Exam: Mucous Membranes Moist - Neck Exam Neck Exam: Full ROM. absent: Tenderness - Respiratory Exam Respiratory Exam: Rales (mild rales noted in left lower lungs. ), Rhonchi ( diffusely). absent: Accessory Muscle Use, Chest Wall Tenderness, Prolonged Expiratory Phase, Wheezes, Respiratory Distress, Stridor - Cardiovascular Exam Cardiovascular Exam: REGULAR RHYTHM, +S1, +S2 - GI/Abdominal Exam GI & Abdominal Exam: Soft, Normal Bowel Sounds. absent: Firm, Guarding, Rigid, Tenderness - Extremities Exam Extremities Exam: Pedal Edema. absent: Calf Tenderness Additional comments: Minimal edema of bilateral lower extremities, improved from prior. No calf tenderness, no tenderness of anterior shins bilaterally. Hyperkeratotic changes to both feet, nontender and nonerythematous bilaterally. Nontender to palptation of feet. Thick, yellow toenails on feet consistent with onychomycosis. - Back Exam Back Exam: absent: CVA tenderness (L), CVA tenderness (R), rash noted - Neurological Exam Neurological Exam: Alert, Awake, Oriented x3 - Psychiatric Exam Psychiatric exam: Normal Affect, Normal Mood Assessment and Plan - Assessment and Plan (Free Text) Plan: Assessment/plan Dyspnea secondary to Acute on Chronic Diastolic CHF -Stable, afebrile -Continue to monitor on telemetry -Patient is allergic to Lasix and sulfa drugs; per daughter, develops anaphylactic reaction to Lasix. -Patient started on home dose of Ethacrynic Acid 25mg PO BID -Continue Coreg 3.125mg PO BID, ASA 81mg PO daily -Daily weights/Strict I/Os, Activity out of bed to chair -Last echo 07/2017 showed EF 55% -Cardiology on consult, Dr Pisano, help appreciated -Nephrology on consult, Dr Go, help appreciated -PT eval ordered Cough secondary to Bronchitis, R/O HCAP -Afebrile, no leukocytosis -Continue Duonebs Q6H [facility] -CT chest There is no evidence of pneumonia or mass lesion in the lungs. -Antibiotics: Ciprofloxacin 400mg IVPB Q12H (11/14) --> discontinued 11/17/17, after urine culture positive for Proteus resistant to Cipro Vancomycin 1 gm Q12H (11/14) --> discontinued 11/17/17, after urine culture positive for Proteus Ceftriaxone 1g IV to be given 11/18 and 11/19 -Mycoplasma negative -Continue Duonebs Q4H [facility] -Tessalon pearls 100mg TID, Robitussin 5ml PO Q6H Hypertension -Continue Lisinopril 5mg PO daily, Coreg 3.125mg PO BID -Monitor vitals Abnormal UA/Urinary Tract Infection -UA on admission 11/13/17 showed 3+ leuk esterase, WBC 186 -Initial Urine culture grew gram negative rods 20,000 CFU -UA 11/14/17 3+ leuk esterase, WBC 32 -Repeat UA 11/18/17 neg leuk esterase, WBC 1 -Follow up repeat urine culture from 11/17/17 -Ciprofloxacin 400mg Q12H discontinued 11/17/17 -Started on Ceftriaxone 1g IV on 11/18/17 Hypokalemia -Potassium 4.0 -Continue to monitor and replete as needed Left Lower extremity pain, R/O DVT -CT angio: no acute pulmonary embolism. no evidence of acute pulmonary disease Lower extremity dopplers: Bilateral peroneal veins are not well visualized due to swelling. There is no evidence of venous thrombosis for the remaining veins in bilateral lower extremities. -Pain could be secondary to peripheral neuropathy -Continue Gabapentin 600mg PO HS History of Bladder CA/ Bladder Incontinence -Continue Detrol 2mg PO BID -As per daughter Mihaela, patient had 2 surgeries for bladder cancer 8-10 years ago, -Not following with oncologists currently. -Patient has not followed up with physicians since 2015. History of dementia, possible depression -Continue Aricept 10mg PO HS -As per conversation with daughter, was made aware that patient has been hiding her medications and not been compliant. She has been letting herself sit in wet diapers for extended periods of time and is not motivated to go to the bathroom. -Psychiatry Dr. Hamilton consulted, help appreciated History of Brain aneurysm and Hemorrhage -Per the patient, this occurred over 30 years ago -Denies any recent bleeding episodes -Will resume Heparin 5000 units Q8H and ASA 81mg PO daily GI/DVT ppx: -Will resume Heparin 5000 units SC Q8H -Pepcid 20mg PO daily - Florastor 250mg PO BID DISPO: PT is recommending [facility] for disposition. Patient was recently discharged from [facility] and came to the ED 1 week later. Will likely be discharged home with services. Will follow up with [facility] [employer] [facility] on Saturday. Plan discussed with Dr Denton. Carlos Jimenes, YI Case discussed with Dr. Denton <Jinny Denton - Last Filed: 11/19/17 07:50> Objective - Vital Signs/Intake and Output Vital Signs (last 24 hours): Temp Pulse Resp BP Pulse Ox 98.2 F 72 20 112/74 99 11/18/17 23:10 11/18/17 23:10 11/18/17 23:10 11/18/17 23:10 11/18/17 23:10 Intake and Output: 11/19/17 11/19/17 06:59 18:59 Intake Total 200 Output Total 300 Balance -100 - Medications Medications: Current Medications Albuterol/Ipratropium (Duoneb 3 Mg/0.5 Mg (3 Ml) Ud) 3 ml INH RQ4 [facility] Last Admin: 11/19/17 04:31 Dose: Not Given Aspirin (Ecotrin) 81 mg PO DAILY [facility] Last Admin: 11/18/17 10:14 Dose: 81 mg Benzonatate (Tessalon Perles) 100 mg PO TID [facility] Last Admin: 11/18/17 18:17 Dose: 100 mg Carvedilol (Coreg) 3.125 mg PO BID [facility] Last Admin: 11/18/17 18:17 Dose: 3.125 mg Donepezil HCl (Aricept) 10 mg PO HS [facility] Last Admin: 11/18/17 22:40 Dose: 10 mg Famotidine (Pepcid) 20 mg PO DAILY [facility] Last Admin: 11/18/17 10:14 Dose: 20 mg Gabapentin (Neurontin) 600 mg PO HS [facility] Last Admin: 11/18/17 22:40 Dose: 600 mg Guaifenesin/Dextromethorphan (Robitussin Dm) 5 ml PO Q6H PRN PRN Reason: Cough Last Admin: 11/18/17 22:46 Dose: 5 ml Heparin Sodium (Porcine) (Heparin) 5,000 units SC Q8 [facility] Last Admin: 11/19/17 05:31 Dose: 5,000 units Home Med (Patient's Own Medication) 1 tab PO DAILY [facility] Ceftriaxone Sodium (Rocephin Iv 1 Gm Duplex) 50 mls @ 100 mls/hr IVPB Q24H [facility] PRN Reason: Protocol Stop: 11/19/17 19:29 Last Admin: 11/18/17 18:16 Dose: 100 mls/hr Lisinopril (Zestril) 5 mg PO DAILY [facility] Last Admin: 11/18/17 10:14 Dose: 5 mg Saccharomyces Boulardii (Florastor) 250 mg PO BID [facility] Last Admin: 11/18/17 18:17 Dose: 250 mg Tolterodine Tartrate (Detrol) 2 mg PO BID [facility] Last Admin: 11/18/17 18:18 Dose: 2 mg - Labs Labs: 11/19/17 07:00 11/18/17 06:43 Attending/Attestation - Attestation I have personally seen and examined this patient.: Yes I have fully participated in the care of the patient.: Yes I have reviewed all pertinent clinical information, including history, physical exam and plan: Yes Notes (Text): seen and examined,having lunch,less cough,no sob,no fever,no abd pain Tolerated first dose of ceftriaxone yesterday lungs clear today. Abdomen soft and nontender d/w CW patient will go home with home care when medically stable We will continue ceftriaxone,follow repeat urine culture. If negative discharge home tomorrow afternoon . d/w resident. I agree with the documentation
[2017-11-18] MEDS: ETHACRYNIC ACID 25 MG PO SCH (10:13)
[2017-11-18] MEDS: guaiFENesin DM 100 mg-10 mg/5 ml UD PO PRN ×2 (10:14→22:46)
[2017-11-18] MEDS: Saccharomyces Boulardi 250 mg Cap PO SCH ×2 (10:14→18:17)
--- NOTE | 2017-11-18 14:59 | CP.PCM.PN ---
<Pietro Dalal - Last Filed: 11/18/17 15:56> Subjective - Date & Time of Evaluation Date of Evaluation: 11/18/17 Time of Evaluation: 13:00 - Subjective Subjective: Javierteodora Ireneem PGY-1 [facility] Progress Note Patient seen and examined at bedside. Patient reports still having a dry cough which has improved s/p breathing treatments and Robitussin. Patient denies any difficulty with her breathing. Patient reports good appetite and urine output without any urinary symptoms. Patient denies chest pain, SOB, N/V/C/D. Objective - Vital Signs/Intake and Output Vital Signs (last 24 hours): Temp Pulse Resp BP Pulse Ox 98.2 F 73 18 110/55 L 97 11/18/17 07:50 11/18/17 07:50 11/18/17 07:50 11/18/17 07:50 11/18/17 07:50 - Medications Medications: Current Medications Albuterol/Ipratropium (Duoneb 3 Mg/0.5 Mg (3 Ml) Ud) 3 ml INH RQ4 [facility] Last Admin: 11/18/17 14:00 Dose: Not Given Aspirin (Ecotrin) 81 mg PO DAILY [facility] Last Admin: 11/18/17 10:14 Dose: 81 mg Benzonatate (Tessalon Perles) 100 mg PO TID [facility] Last Admin: 11/18/17 14:45 Dose: 100 mg Carvedilol (Coreg) 3.125 mg PO BID [facility] Last Admin: 11/18/17 10:14 Dose: 3.125 mg Donepezil HCl (Aricept) 10 mg PO HS [facility] Last Admin: 11/17/17 21:25 Dose: 10 mg Famotidine (Pepcid) 20 mg PO DAILY [facility] Last Admin: 11/18/17 10:14 Dose: 20 mg Gabapentin (Neurontin) 600 mg PO HS [facility] Last Admin: 11/17/17 21:25 Dose: 600 mg Guaifenesin/Dextromethorphan (Robitussin Dm) 5 ml PO Q6H PRN PRN Reason: Cough Last Admin: 11/18/17 10:14 Dose: 5 ml Heparin Sodium (Porcine) (Heparin) 5,000 units SC Q8 [facility] Last Admin: 11/18/17 14:45 Dose: 5,000 units Home Med (Patient's Own Medication) 1 tab PO DAILY [facility] Ceftriaxone Sodium (Rocephin Iv 1 Gm Duplex) 50 mls @ 100 mls/hr IVPB Q24H [facility] PRN Reason: Protocol Stop: 11/19/17 19:29 Lisinopril (Zestril) 5 mg PO DAILY [facility] Last Admin: 11/18/17 10:14 Dose: 5 mg Saccharomyces Boulardii (Florastor) 250 mg PO BID [facility] Last Admin: 11/18/17 10:14 Dose: 250 mg Tolterodine Tartrate (Detrol) 2 mg PO BID [facility] Last Admin: 11/18/17 10:14 Dose: 2 mg - Labs Labs: 11/18/17 06:43 11/18/17 06:43 - Constitutional Appears: Well, No Acute Distress - Head Exam Head Exam: ATRAUMATIC, NORMAL INSPECTION, NORMOCEPHALIC - Eye Exam Eye Exam: EOMI, Normal appearance - Respiratory Exam Respiratory Exam: Clear to Ausculation Bilateral. absent: Rales, Rhonchi, Wheezes - Cardiovascular Exam Cardiovascular Exam: REGULAR RHYTHM, +S1, +S2. absent: JVD - GI/Abdominal Exam GI & Abdominal Exam: Soft, Normal Bowel Sounds. absent: Tenderness - Extremities Exam Extremities Exam: Normal Inspection. absent: Pedal Edema Additional comments: skin looks shriveled on appearance; prior diuresis - Psychiatric Exam Psychiatric exam: Normal Affect, Normal Mood - Skin Skin Exam: Normal Color, Warm. absent: Rash Assessment and Plan - Assessment and Plan (Free Text) Assessment: Patient is a 82 yo with PMH HTN, CHF, s/p brain aneurysm, s/p carotid surgery, and bladder cancer who presents with weakness, shortness of breath, and dry cough. Plan: Congestive Heart Failure with Diastolic Dysfunction Patient allergic to Lasix; Patient does not recall what happens when she takes the medicine 7-11 Cxray no active findings 7-[address] No PE or acute pulmonary disease Continue Lisinopril; Continue Coreg 3.125mg PO BID, ASA 81mg PO daily Ethacrynic acid decreased to 25mg daily because patient euvolemic on physical exam and skin changes (shriveled skin) suggest recent diuresis Azotemia BUN 23 Likely volume contraction secondary to diuretic usage See above on management; Continue to monitor Hypertension Slightly hypotensive in AM; BP 110/55; decreased diuretic dose Continue Coreg 3.125 Continue to monitor vital signs Hypokalemia K- 4.0 Continue to monitor and replete as needed <Ervin Go - Last Filed: 11/19/17 07:10> Objective - Vital Signs/Intake and Output Vital Signs (last 24 hours): Temp Pulse Resp BP Pulse Ox 98.2 F 72 20 112/74 99 11/18/17 23:10 11/18/17 23:10 11/18/17 23:10 11/18/17 23:10 11/18/17 23:10 Intake and Output: 11/19/17 11/19/17 06:59 18:59 Intake Total 200 Output Total 300 Balance -100 - Medications Medications: Current Medications Albuterol/Ipratropium (Duoneb 3 Mg/0.5 Mg (3 Ml) Ud) 3 ml INH RQ4 [facility] Last Admin: 11/19/17 04:31 Dose: Not Given Aspirin (Ecotrin) 81 mg PO DAILY [facility] Last Admin: 11/18/17 10:14 Dose: 81 mg Benzonatate (Tessalon Perles) 100 mg PO TID [facility] Last Admin: 11/18/17 18:17 Dose: 100 mg Carvedilol (Coreg) 3.125 mg PO BID [facility] Last Admin: 11/18/17 18:17 Dose: 3.125 mg Donepezil HCl (Aricept) 10 mg PO HS [facility] Last Admin: 11/18/17 22:40 Dose: 10 mg Famotidine (Pepcid) 20 mg PO DAILY [facility] Last Admin: 11/18/17 10:14 Dose: 20 mg Gabapentin (Neurontin) 600 mg PO HS [facility] Last Admin: 11/18/17 22:40 Dose: 600 mg Guaifenesin/Dextromethorphan (Robitussin Dm) 5 ml PO Q6H PRN PRN Reason: Cough Last Admin: 11/18/17 22:46 Dose: 5 ml Heparin Sodium (Porcine) (Heparin) 5,000 units SC Q8 [facility] Last Admin: 11/19/17 05:31 Dose: 5,000 units Home Med (Patient's Own Medication) 1 tab PO DAILY [facility] Ceftriaxone Sodium (Rocephin Iv 1 Gm Duplex) 50 mls @ 100 mls/hr IVPB Q24H [facility] PRN Reason: Protocol Stop: 11/19/17 19:29 Last Admin: 11/18/17 18:16 Dose: 100 mls/hr Lisinopril (Zestril) 5 mg PO DAILY [facility] Last Admin: 11/18/17 10:14 Dose: 5 mg Saccharomyces Boulardii (Florastor) 250 mg PO BID [facility] Last Admin: 11/18/17 18:17 Dose: 250 mg Tolterodine Tartrate (Detrol) 2 mg PO BID [facility] Last Admin: 11/18/17 18:18 Dose: 2 mg - Labs Labs: 11/18/17 06:43 11/18/17 06:43 Attending/Attestation - Attestation I have personally seen and examined this patient.: Yes I have fully participated in the care of the patient.: Yes I have reviewed all pertinent clinical information, including history, physical exam and plan: Yes Notes (Text): Patient seen and examined; I agree with the resident's note as above with the following additions/edits: Patient admitted with dyspnea and leg weakness; nephrology following for diuretics management; Restarted on home dose of ethacrynic acid 25 mg bid; has CHF with diastolic dysfunction; had already been diuresed while back at home for a few days (as indicated by shriveled lower legs/feet); now with mild increase in serum creatinine, likely due to over-diuresis with slightly low BP; otherwise stable electrolyte status; -decrease ethacrynic acid dose to once daily; need to avoid over-diuresis simply based on lower ext edema; -consider stopping tolteradine as anticholinergic agent will make her prone to urinary retention and UTI; patient is mostly bedbound and incontinent anyway;
[2017-11-18] MEDS: cefTRIAXone IV 1 gm in Dextros 50 ML IVPB SCH (18:16)
[2017-11-18] MEDS ORDERED: Patient's Own Medication - Tablet/Capusle PO SCH (18:30)
--- NOTE | 2017-11-18 22:52 | PN ---
DATE: 11/18/2017 SUBJECTIVE: The patient is still experiencing productive cough. She denies any retrosternal chest pain. No dizziness. PHYSICAL EXAMINATION: VITAL SIGNS: Blood pressure 103/66, heart 66 , temperature 97.9, respirations 18. HEENT: Normocephalic. CHEST: Absent breath sounds over the bases and bilateral rhonchi. HEART: S1, S2 are regular. ABDOMEN: Soft. EXTREMITIES: Trace leg edema. LABORATORY DATA: SMA-7: Sodium 142, potassium 4, chloride 105, CO2 of 28, glucose 109, BUN 23, creatinine 1. CBC: Hemoglobin and hematocrit 10.8 and 32.7, white count and platelet count are within normal limits. ASSESSMENT: 1. Diastolic left ventricular dysfunction. 2. Pneumonia. 3. Proteus mirabilis urinary tract infection. 4. Secondary pulmonary hypertension. 5. Anemia. 6. Mild prerenal azotemia. RECOMMENDATIONS: Continue Aricept 10 mg once a day, Coreg 3.125 mg twice a day, aspirin 81 mg once a day, subcutaneous heparin 5000 units every 8 hours, Rocephin 1 gm daily, Zestril 5 mg once a day. Shamar Pisano MD
[2017-11-19] MEDS: Albuterol-Ipratrop 3 mg / 0.5 (3 ml) UD INH SCH ×6 (00:54→19:02)
--- NOTE | 2017-11-19 06:51 | CP.PCM.PN ---
Subjective - Date & Time of Evaluation Date of Evaluation: 11/19/17 Time of Evaluation: 08:15 - Subjective Subjective: PGY [address] D[place]. Pt seen and examined by beside. Patient laying in bed, no acute distress. Patient denies of chest pain, shortness of breath, abdominal pain, urinary complaints. Patient states she has some soreness on her right gluetal region. Objective - Vital Signs/Intake and Output Vital Signs (last 24 hours): Temp Pulse Resp BP Pulse Ox 98.2 F 72 20 112/74 99 11/18/17 23:10 11/18/17 23:10 11/18/17 23:10 11/18/17 23:10 11/18/17 23:10 Intake and Output: 11/18/17 11/19/17 18:59 06:59 Intake Total 200 Output Total 300 Balance -100 - Medications Medications: Current Medications Albuterol/Ipratropium (Duoneb 3 Mg/0.5 Mg (3 Ml) Ud) 3 ml INH RQ4 [facility] Last Admin: 11/19/17 04:31 Dose: Not Given Aspirin (Ecotrin) 81 mg PO DAILY [facility] Last Admin: 11/18/17 10:14 Dose: 81 mg Benzonatate (Tessalon Perles) 100 mg PO TID [facility] Last Admin: 11/18/17 18:17 Dose: 100 mg Carvedilol (Coreg) 3.125 mg PO BID [facility] Last Admin: 11/18/17 18:17 Dose: 3.125 mg Donepezil HCl (Aricept) 10 mg PO HS [facility] Last Admin: 11/18/17 22:40 Dose: 10 mg Famotidine (Pepcid) 20 mg PO DAILY [facility] Last Admin: 11/18/17 10:14 Dose: 20 mg Gabapentin (Neurontin) 600 mg PO HS [facility] Last Admin: 11/18/17 22:40 Dose: 600 mg Guaifenesin/Dextromethorphan (Robitussin Dm) 5 ml PO Q6H PRN PRN Reason: Cough Last Admin: 11/18/17 22:46 Dose: 5 ml Heparin Sodium (Porcine) (Heparin) 5,000 units SC Q8 [facility] Last Admin: 11/19/17 05:31 Dose: 5,000 units Home Med (Patient's Own Medication) 1 tab PO DAILY [facility] Ceftriaxone Sodium (Rocephin Iv 1 Gm Duplex) 50 mls @ 100 mls/hr IVPB Q24H [facility] PRN Reason: Protocol Stop: 11/19/17 19:29 Last Admin: 11/18/17 18:16 Dose: 100 mls/hr Lisinopril (Zestril) 5 mg PO DAILY [facility] Last Admin: 11/18/17 10:14 Dose: 5 mg Saccharomyces Boulardii (Florastor) 250 mg PO BID [facility] Last Admin: 11/18/17 18:17 Dose: 250 mg Tolterodine Tartrate (Detrol) 2 mg PO BID [facility] Last Admin: 11/18/17 18:18 Dose: 2 mg - Labs Labs: 11/18/17 06:43 11/18/17 06:43 - Constitutional Appears: Well, Non-toxic, No Acute Distress - Head Exam Head Exam: ATRAUMATIC, NORMAL INSPECTION, NORMOCEPHALIC - Eye Exam Eye Exam: EOMI, Normal appearance Pupil Exam: NORMAL ACCOMODATION, PERRL - ENT Exam ENT Exam: Mucous Membranes Moist - Neck Exam Neck Exam: Normal Inspection - Respiratory Exam Respiratory Exam: Wheezes, NORMAL BREATHING PATTERN. absent: Rales, Rhonchi Additional comments: Fait wheeze on R lung, lower lobe. L lung clear to auscultation - Cardiovascular Exam Cardiovascular Exam: +S1, +S2. absent: Tachycardia, Irregular Rhythm, Murmur - GI/Abdominal Exam GI & Abdominal Exam: Soft, Normal Bowel Sounds. absent: Distended, Firm, Guarding - Extremities Exam Extremities Exam: Normal Capillary Refill. absent: Calf Tenderness, Pedal Edema Additional comments: Thick, yellow toenails on feet consistent with onychomycosis - Back Exam Back Exam: NORMAL INSPECTION - Neurological Exam Neurological Exam: Alert, Oriented x3 - Psychiatric Exam Psychiatric exam: Normal Affect, Normal Mood - Skin Skin Exam: Dry, Intact, Normal Color, Warm Assessment and Plan - Assessment and Plan (Free Text) Assessment: Dyspnea secondary to Acute on Chronic Diastolic CHF -Stable, afebrile -Continue to monitor on telemetry -Patient is allergic to Lasix and sulfa drugs; per daughter, develops anaphylactic reaction to Lasix. -Patient started on home dose of Ethacrynic Acid 25mg PO BID -Continue Coreg 3.125mg PO BID, ASA 81mg PO daily -Daily weights/Strict I/Os, Activity out of bed to chair -Last echo 07/2017 showed EF 55% -Cardiology on consult, Dr Pisano, help appreciated -Nephrology on consult, Dr Go, help appreciated -PT eval ordered Cough secondary to Bronchitis, R/O HCAP -Afebrile, no leukocytosis -Continue Duonebs Q6H [facility] -CT chest There is no evidence of pneumonia or mass lesion in the lungs. -Antibiotics: Ciprofloxacin 400mg IVPB Q12H (11/14) --> discontinued 11/17/17, after urine culture positive for Proteus resistant to Cipro Vancomycin 1 gm Q12H (11/14) --> discontinued 11/17/17, after urine culture positive for Proteus Ceftriaxone 1g IV to be given 11/18 and 11/19 -Mycoplasma negative -Continue Duonebs Q4H [facility] -Tessalon pearls 100mg TID, Robitussin 5ml PO Q6H Hypertension -Continue Lisinopril 5mg PO daily, Coreg 3.125mg PO BID -Monitor vitals Abnormal UA/Urinary Tract Infection -UA on admission 11/13/17 showed 3+ leuk esterase, WBC 186 -Initial Urine culture grew gram negative rods 20,000 CFU -UA 11/14/17 3+ leuk esterase, WBC 32 -Repeat UA 11/18/17 neg leuk esterase, WBC 1 -Follow up repeat urine culture from 11/17/17 -Ciprofloxacin 400mg Q12H discontinued 11/17/17 -Started on Ceftriaxone 1g IV on 11/18/17 Hypokalemia - Resolved -Potassium 4.0 -Continue to monitor and replete as needed Left Lower extremity pain, R/O DVT -CT angio: no acute pulmonary embolism. no evidence of acute pulmonary disease Lower extremity dopplers: Bilateral peroneal veins are not well visualized due to swelling. There is no evidence of venous thrombosis for the remaining veins in bilateral lower extremities. -Pain could be secondary to peripheral neuropathy -Continue Gabapentin 600mg PO HS History of Bladder CA/ Bladder Incontinence -Continue Detrol 2mg PO BID -As per daughter Mihaela, patient had 2 surgeries for bladder cancer 8-10 years ago, -Not following with oncologists currently. -Patient has not followed up with physicians since 2016. History of dementia, possible depression -Continue Aricept 10mg PO HS -As per conversation with daughter, was made aware that patient has been hiding her medications and not been compliant. She has been letting herself sit in wet diapers for extended periods of time and is not motivated to go to the bathroom. -Psychiatry Dr. Hamilton consulted, help appreciated History of Brain aneurysm and Hemorrhage -Per the patient, this occurred over 30 years ago -Denies any recent bleeding episodes - Heparin 5000 units Q8H and ASA 81mg PO daily GI/DVT ppx: -Heparin 5000 units SC Q8H -Pepcid 20mg PO daily - Florastor 250mg PO BID PT unable to go to [facility] secondary due to insurance limitations. Patient was scheduled for D/C home today 11/19/17; however, due to family issues/ concerns patient was unable to go home.
[2017-11-19 07:33] LABS: BASO # 0.1 K/uL (0.0-0.2); BASO % 0.9 % (0.0-2.0); EOS # 0.4 K/uL (0.0-0.7); EOS % 5.6 % (0.0-4.0); HEMOGLOBIN 10.9 g/dL (11.0-16.0); LYMPH # 1.9 K/uL (1.0-4.3); LYMPH % 26.9 % (20.0-40.0); MEAN CELL VOLUME 91.3 fL (81.0-99.0); MEAN CORPUSCULAR HEMOGLOBIN 30.9 pg (27.0-31.0); MEAN CORPUSCULAR HGB CONC 33.8 g/dL (33.0-37.0); MEAN PLATELET VOLUME 8.7 fL (7.2-11.7); MONO # 0.9 K/uL (0.0-0.8); MONO % 12.3 % (0.0-10.0); NEUT # 3.8 K/uL (1.8-7.0); NEUT % 54.3 % (50.0-75.0); RBC 3.52 Mil/uL (3.80-5.20); RED CELL DISTRIBUTION WIDTH 13.5 % (11.5-14.5); WHITE BLOOD COUNT 6.9 K/uL (4.8-10.8)
[2017-11-19 08:50] LABS: ALB/GLOB RATIO 1.1 (1.0-2.1); ALBUMIN 3.1 g/dL (3.5-5.0); CALCIUM 8.8 mg/dl (8.6-10.4)
[2017-11-19] MEDS: guaiFENesin DM 100 mg-10 mg/5 ml UD PO PRN (10:01)
[2017-11-19] MEDS: Patient's Own Medication - Tablet/Capusle PO SCH (10:03)
[2017-11-19] MEDS: Saccharomyces Boulardi 250 mg Cap PO SCH ×2 (10:03→18:01)
--- NOTE | 2017-11-19 11:54 | CP.PCM.PN ---
Subjective - Date & Time of Evaluation Date of Evaluation: 11/19/17 Time of Evaluation: 10:15 - Subjective Subjective: Pietro Dalal PGY-1 [facility] Progress Note Patient seen and examined at bedside. Patient reports difficulty breathing at rest. Patient states her cough has improved with medications. Patient reports good appetite and tolerating diet. Patient ambulates with PT assistance and is incontinent. Patient denies chest pain, N/V/C/D, palpitations, and dizziness. Objective - Vital Signs/Intake and Output Vital Signs (last 24 hours): Temp Pulse Resp BP Pulse Ox 98.2 F 68 20 114/72 99 11/19/17 07:30 11/19/17 07:30 11/19/17 07:30 11/19/17 07:30 11/19/17 07:30 Intake and Output: 11/19/17 11/19/17 06:59 18:59 Intake Total 200 Output Total 300 Balance -100 - Medications Medications: Current Medications Albuterol/Ipratropium (Duoneb 3 Mg/0.5 Mg (3 Ml) Ud) 3 ml INH RQ4 [facility] Last Admin: 11/19/17 08:09 Dose: 3 ml Aspirin (Ecotrin) 81 mg PO DAILY [facility] Last Admin: 11/19/17 10:03 Dose: 81 mg Benzonatate (Tessalon Perles) 100 mg PO TID [facility] Last Admin: 11/19/17 10:02 Dose: 100 mg Carvedilol (Coreg) 3.125 mg PO BID [facility] Last Admin: 11/19/17 10:04 Dose: 3.125 mg Donepezil HCl (Aricept) 10 mg PO [facility] Last Admin: 11/18/17 22:40 Dose: 10 mg Famotidine (Pepcid) 20 mg PO DAILY [facility] Last Admin: 11/19/17 10:04 Dose: 20 mg Gabapentin (Neurontin) 600 mg PO HS [facility] Last Admin: 11/18/17 22:40 Dose: 600 mg Guaifenesin/Dextromethorphan (Robitussin Dm) 5 ml PO Q6H PRN PRN Reason: Cough Last Admin: 11/19/17 10:01 Dose: 5 ml Heparin Sodium (Porcine) (Heparin) 5,000 units SC Q8 [facility] Last Admin: 11/19/17 05:31 Dose: 5,000 units Home Med (Patient's Own Medication) 1 tab PO DAILY [facility] Last Admin: 11/19/17 10:03 Dose: 1 tab Ceftriaxone Sodium (Rocephin Iv 1 Gm Duplex) 50 mls @ 100 mls/hr IVPB Q24H [facility] PRN Reason: Protocol Stop: 11/19/17 19:29 Last Admin: 11/18/17 18:16 Dose: 100 mls/hr Lisinopril (Zestril) 5 mg PO DAILY [facility] Last Admin: 11/19/17 10:04 Dose: 5 mg Saccharomyces Boulardii (Florastor) 250 mg PO BID [facility] Last Admin: 11/19/17 10:03 Dose: 250 mg Tolterodine Tartrate (Detrol) 2 mg PO BID [facility] Last Admin: 11/19/17 10:02 Dose: 2 mg - Labs Labs: 11/19/17 07:00 11/19/17 07:00 - Additional Findings Additional findings: - Constitutional Appears: Well, No Acute Distress - Head Exam Head Exam: ATRAUMATIC, NORMAL INSPECTION, NORMOCEPHALIC - Eye Exam Eye Exam: EOMI, Normal appearance - Respiratory Exam Respiratory Exam: Clear to Ausculation Bilateral. absent: Rales, Rhonchi, Wheezes - Cardiovascular Exam Cardiovascular Exam: REGULAR RHYTHM, +S1, +S2. absent: JVD - GI/Abdominal Exam GI & Abdominal Exam: Soft, Normal Bowel Sounds. absent: Tenderness - Extremities Exam Extremities Exam: Normal Inspection. absent: Pedal Edema Additional comments: skin looks shriveled on appearance; prior diuresis - Psychiatric Exam Psychiatric exam: Normal Affect, Normal Mood - Skin Skin Exam: Normal Color, Warm. absent: Rash Assessment and Plan - Assessment and Plan (Free Text) Assessment: Patient is a 82 yo with PMH HTN, CHF, s/p brain aneurysm, s/p carotid surgery, and bladder cancer who presents with weakness, shortness of breath, and dry cough. Plan: Congestive Heart Failure with Diastolic Dysfunction Continue Ethacrynic acid 25 mg daily Stable volume status Continue Lisinopril; Continue Coreg 3.125mg PO BID, ASA 81mg PO daily 7-11 Cxray no active findings 7-[address] No PE or acute pulmonary disease Azotemia BUN 25 Likely volume contraction secondary to diuretic usage See above on management; Continue to monitor Hypertension BP 114/72 with decreased diuretic dose Continue Coreg 3.125 Blood pressure controlled withe meds Continue to monitor vital signs Hypokalemia K- 4.5 Continue to monitor and replete as needed
[2017-11-19] MEDS: cefTRIAXone IV 1 gm in Dextros 50 ML IVPB SCH ×2 (14:37→19:39)
--- NOTE | 2017-11-19 23:08 | PN ---
DATE: 11/19/2017 FOLLOWUP SUBJECTIVE: The patient is still experiencing productive cough and mild shortness of breath. She is sitting at a chair, eating her lunch when I saw her. PHYSICAL EXAMINATION: VITAL SIGNS: Blood pressure 115/71, heart rate 63, temperature 98.1, respirations 18. HEENT: Pale conjunctivae. CHEST: Absent breath sounds over the bases. HEART: S1, S2 are regular. ABDOMEN: Soft. EXTREMITIES: 1+ pitting edema. LABORATORY DATA: Today's SMA-7 is within normal limits except for carbon dioxide of 31 and BUN of 25. Today's hemoglobin and hematocrit 10.9 and 32.1, white count and platelet count are within normal limits. ASSESSMENT: 1. Diastolic left ventricular dysfunction. 2. Pneumonia. 3. Secondary pulmonary hypertension. 4. Anemia. 5. Proteus mirabilis urinary tract infection. 6. Mild anemia. 7. Mild prerenal azotemia. RECOMMENDATIONS: Continue Aricept 10 mg once a day, Coreg 3.125 mg twice a day, aspirin 81 mg once a day, subcutaneous heparin 5000 units every 8 hours, IV Rocephin 1 gm daily, Zestril 5 mg orally daily. Shamar Pisano MD
[2017-11-20] MEDS: Albuterol-Ipratrop 3 mg / 0.5 (3 ml) UD INH SCH ×6 (00:55→19:35)
[2017-11-20 07:30] LABS: BASO # 0.1 K/uL (0.0-0.2); BASO % 1.2 % (0.0-2.0); EOS # 0.4 K/uL (0.0-0.7); EOS % 6.5 % (0.0-4.0); HEMOGLOBIN 10.6 g/dL (11.0-16.0); LYMPH # 2.1 K/uL (1.0-4.3); LYMPH % 31.7 % (20.0-40.0); MEAN CELL VOLUME 91.6 fL (81.0-99.0); MEAN CORPUSCULAR HGB CONC 33.8 g/dL (33.0-37.0); MEAN PLATELET VOLUME 8.5 fL (7.2-11.7); MONO # 0.8 K/uL (0.0-0.8); MONO % 11.4 % (0.0-10.0); NEUT # 3.3 K/uL (1.8-7.0); NEUT % 49.2 % (50.0-75.0); RBC 3.42 Mil/uL (3.80-5.20); RED CELL DISTRIBUTION WIDTH 13.7 % (11.5-14.5); WHITE BLOOD COUNT 6.7 K/uL (4.8-10.8)
[2017-11-20 07:37] LABS: ALB/GLOB RATIO 1.2 (1.0-2.1); ALBUMIN 3.2 g/dL (3.5-5.0); CALCIUM 9.1 mg/dl (8.6-10.4)
--- NOTE | 2017-11-20 09:32 | CP.PCM.PN ---
Subjective - Date & Time of Evaluation Date of Evaluation: 11/20/17 Time of Evaluation: 09:32 - Subjective Subjective: Progress note for Hospitalist service Patient seen and examined at bedside. Patient is resting in bed comfortably. She denies chest pain, headaches, shortness of breath, abdominal pain, nausea, vomiting, diarrhea, urinary complaints. She states she has some pain in her left foot. Also states her cough has been the same. Objective - Vital Signs/Intake and Output Vital Signs (last 24 hours): Temp Pulse Resp BP Pulse Ox 98.3 F 61 20 112/69 99 11/20/17 07:00 11/20/17 07:00 11/20/17 07:00 11/20/17 07:00 11/20/17 07:00 Intake and Output: 11/20/17 11/20/17 06:59 18:59 Output Total 850 Balance -850 - Medications Medications: Current Medications Acetaminophen (Tylenol 325mg Tab) 650 mg PO Q6 PRN PRN Reason: Pain, moderate (4-7) Last Admin: 11/20/17 03:36 Dose: 650 mg Albuterol/Ipratropium (Duoneb 3 Mg/0.5 Mg (3 Ml) Ud) 3 ml INH RQ4 [facility] Last Admin: 11/20/17 04:25 Dose: Not Given Aspirin (Ecotrin) 81 mg PO DAILY [facility] Last Admin: 11/19/17 10:03 Dose: 81 mg Benzonatate (Tessalon Perles) 100 mg PO TID [facility] Last Admin: 11/19/17 18:01 Dose: 100 mg Carvedilol (Coreg) 3.125 mg PO BID [facility] Last Admin: 11/19/17 18:01 Dose: 3.125 mg Donepezil HCl (Aricept) 10 mg PO HS [facility] Last Admin: 11/19/17 21:36 Dose: 10 mg Famotidine (Pepcid) 20 mg PO DAILY [facility] Last Admin: 11/19/17 10:04 Dose: 20 mg Gabapentin (Neurontin) 600 mg PO HS [facility] Last Admin: 11/19/17 21:36 Dose: 600 mg Guaifenesin/Dextromethorphan (Robitussin Dm) 5 ml PO Q6H PRN PRN Reason: Cough Last Admin: 11/19/17 10:01 Dose: 5 ml Heparin Sodium (Porcine) (Heparin) 5,000 units SC Q8 [facility] Last Admin: 11/20/17 06:49 Dose: 5,000 units Home Med (Patient's Own Medication) 1 tab PO DAILY [facility] Last Admin: 11/19/17 10:03 Dose: 1 tab Lisinopril (Zestril) 5 mg PO DAILY [facility] Last Admin: 11/19/17 10:04 Dose: 5 mg Saccharomyces Boulardii (Florastor) 250 mg PO BID [facility] Last Admin: 11/19/17 18:01 Dose: 250 mg Tolterodine Tartrate (Detrol) 2 mg PO BID [facility] Last Admin: 11/19/17 18:01 Dose: 2 mg - Labs Labs: 11/20/17 07:20 11/20/17 07:20 - Constitutional Appears: Well, No Acute Distress - Head Exam Head Exam: ATRAUMATIC, NORMOCEPHALIC - Eye Exam Eye Exam: EOMI - ENT Exam ENT Exam: Mucous Membranes Moist - Neck Exam Neck Exam: Normal Inspection - Respiratory Exam Respiratory Exam: Wheezes. absent: Rales, Rhonchi, Respiratory Distress Additional comments: Mild wheezing at left lower base - Cardiovascular Exam Cardiovascular Exam: REGULAR RHYTHM, +S1, +S2. absent: Tachycardia - GI/Abdominal Exam GI & Abdominal Exam: Soft, Normal Bowel Sounds. absent: Distended, Firm, Guarding, Tenderness - Extremities Exam Extremities Exam: Tenderness (no tenderness of lower calves or shins bilaterally. Minimal tenderness to palpation on dorsum on left foot. ) Additional comments: Hyperkeratotic skin to both feet, consistent with venous stasis changes. Thick yellow toenails consistent with onychomycosis. - Back Exam Back Exam: absent: CVA tenderness (L), CVA tenderness (R) - Neurological Exam Neurological Exam: Alert, Awake, Oriented x3 Assessment and Plan - Assessment and Plan (Free Text) Plan: Assessment: Dyspnea secondary to Acute on Chronic Diastolic CHF -Stable, afebrile -Continue to monitor on telemetry -Patient is allergic to Lasix and sulfa drugs; per daughter, develops anaphylactic reaction to Lasix. -Patient started on home dose of Ethacrynic Acid 25mg PO BID -Continue Coreg 3.125mg PO BID, ASA 81mg PO daily -Daily weights/Strict I/Os, Activity out of bed to chair -Last echo 07/2017 showed EF 55% -Cardiology on consult, Dr Pisano, help appreciated -Nephrology on consult, Dr Go, help appreciated -PT eval ordered Cough secondary to Bronchitis, R/O HCAP -Afebrile, no leukocytosis -Continue Duonebs Q6H [facility] -CT chest There is no evidence of pneumonia or mass lesion in the lungs. -Antibiotics: Ciprofloxacin 400mg IVPB Q12H (11/14) --> discontinued 11/17/17, after urine culture positive for Proteus resistant to Cipro Vancomycin 1 gm Q12H (11/14) --> discontinued 11/17/17, after urine culture positive for Proteus Ceftriaxone 1g IV given 11/18/17 -Mycoplasma negative -Continue Duonebs Q4H [facility]RA[facility] -Tessalon pearls 100mg TID, Robitussin 5ml PO Q6H Hypertension -Continue Lisinopril 5mg PO daily, Coreg 3.125mg PO BID, to be held if systolic BP <100 -Monitor vitals Abnormal UA/Urinary Tract Infection -UA on admission 11/13/17 showed 3+ leuk esterase, WBC 186 -Initial Urine culture grew gram negative rods 20,000 CFU -UA 11/14/17 3+ leuk esterase, WBC 32 -Repeat UA 11/18/17 neg leuk esterase, WBC 1 -Repeat urine cultures 11/17/17 no growth -Ciprofloxacin 400mg Q12H discontinued 11/17/17 - Ceftriaxone 1g IVx1 on 11/18/17 Hypokalemia - Resolved -Potassium 4.3 -Continue to monitor and replete as needed Left Lower extremity pain, R/O DVT -CT angio: no acute pulmonary embolism. no evidence of acute pulmonary disease Lower extremity dopplers: Bilateral peroneal veins are not well visualized due to swelling. There is no evidence of venous thrombosis for the remaining veins in bilateral lower extremities. -Pain could be secondary to peripheral neuropathy -Continue Gabapentin 600mg PO HS History of Bladder CA/ Bladder Incontinence -Continue Detrol 2mg PO BID -As per daughter Mihaela, patient had 2 surgeries for bladder cancer 8-10 years ago, -Not following with oncologists currently. -Patient has not followed up with physicians since 2016. History of dementia, possible depression -Continue Aricept 10mg PO HS -As per conversation with daughter, was made aware that patient has been hiding her medications and not been compliant. She has been letting herself sit in wet diapers for extended periods of time and is not motivated to go to the bathroom. -Psychiatry Dr. Hamilton consulted, help appreciated History of Brain aneurysm and Hemorrhage -Per the patient, this occurred over 30 years ago -Denies any recent bleeding episodes - Heparin 5000 units Q8H and ASA 81mg PO daily GI/DVT ppx: -Heparin 5000 units SC Q8H -Pepcid 20mg PO daily - Florastor 250mg PO BID Disposition: Patient is medically stable for discharge. As per Powder Expert, patient's daughter states that she cannot care for her. Patient was recently in subacute rehab, cannot return to rehab since she has exhausted the ALINA days under Medicare. Patient's daughter is appealing discharge with Medicare.
--- NOTE | 2017-11-20 10:22 | CP.PCM.PN ---
<Pietro Dalal - Last Filed: 11/20/17 13:22> Subjective - Date & Time of Evaluation Date of Evaluation: 11/20/17 Time of Evaluation: 09:45 - Subjective Subjective: Pietro Dalal PGY-1 [facility] Progress Note Patient seen and examined at bedside. Patient reports of dry cough and difficulty breathing at rest. Patient is nonambulatory and incontinent; reports good appetite and tolerating diet. Patient denies chest pain, lightheadedness, N /V/C/D. Objective - Vital Signs/Intake and Output Vital Signs (last 24 hours): Temp Pulse Resp BP Pulse Ox 98.3 F 61 20 112/69 99 11/20/17 07:00 11/20/17 07:00 11/20/17 07:00 11/20/17 07:00 11/20/17 07:00 Intake and Output: 11/20/17 11/20/17 06:59 18:59 Output Total 850 Balance -850 - Medications Medications: Current Medications Acetaminophen (Tylenol 325mg Tab) 650 mg PO Q6 PRN PRN Reason: Pain, moderate (4-7) Last Admin: 11/20/17 03:36 Dose: 650 mg Albuterol/Ipratropium (Duoneb 3 Mg/0.5 Mg (3 Ml) Ud) 3 ml INH RQ4 [facility] Last Admin: 11/20/17 04:25 Dose: Not Given Aspirin (Ecotrin) 81 mg PO DAILY [facility] Last Admin: 11/19/17 10:03 Dose: 81 mg Benzonatate (Tessalon Perles) 100 mg PO TID [facility] Last Admin: 11/19/17 18:01 Dose: 100 mg Carvedilol (Coreg) 3.125 mg PO BID [facility] Last Admin: 11/19/17 18:01 Dose: 3.125 mg Donepezil HCl (Aricept) 10 mg PO HS [facility] Last Admin: 11/19/17 21:36 Dose: 10 mg Famotidine (Pepcid) 20 mg PO DAILY [facility] Last Admin: 11/19/17 10:04 Dose: 20 mg Gabapentin (Neurontin) 600 mg PO HS [facility] Last Admin: 11/19/17 21:36 Dose: 600 mg Guaifenesin/Dextromethorphan (Robitussin Dm) 5 ml PO Q6H PRN PRN Reason: Cough Last Admin: 11/19/17 10:01 Dose: 5 ml Heparin Sodium (Porcine) (Heparin) 5,000 units SC Q8 [facility] Last Admin: 11/20/17 06:49 Dose: 5,000 units Home Med (Patient's Own Medication) 1 tab PO DAILY [facility] Last Admin: 11/19/17 10:03 Dose: 1 tab Lisinopril (Zestril) 5 mg PO DAILY [facility] Last Admin: 11/19/17 10:04 Dose: 5 mg Saccharomyces Boulardii (Florastor) 250 mg PO BID [facility] Last Admin: 11/19/17 18:01 Dose: 250 mg Tolterodine Tartrate (Detrol) 2 mg PO BID [facility] Last Admin: 11/19/17 18:01 Dose: 2 mg - Labs Labs: 11/20/17 07:20 11/20/17 07:20 - Additional Findings Additional findings: - Constitutional Appears: Well, No Acute Distress - Head Exam Head Exam: ATRAUMATIC, NORMAL INSPECTION, NORMOCEPHALIC - Eye Exam Eye Exam: EOMI, Normal appearance - Respiratory Exam Respiratory Exam: Clear to Ausculation Bilateral. absent: Rales, Rhonchi, Wheezes - Cardiovascular Exam Cardiovascular Exam: REGULAR RHYTHM, +S1, +S2. absent: JVD - GI/Abdominal Exam GI & Abdominal Exam: Soft, Normal Bowel Sounds. absent: Tenderness - Extremities Exam Extremities Exam: Normal Inspection. absent: Pedal Edema Additional comments: skin appears slightly shriveled but improved - Psychiatric Exam Psychiatric exam: Normal Affect, Normal Mood - Skin Skin Exam: Normal Color, Warm. absent: Rash Assessment and Plan - Assessment and Plan (Free Text) Assessment: Patient is a 82 yo with PMH HTN, CHF, s/p brain aneurysm, s/p carotid surgery, and bladder cancer who presents with weakness, shortness of breath, and dry cough. Plan: Congestive Heart Failure with Diastolic Dysfunction Continue Ethacrynic acid 25 mg daily and Lisinopril 5mg daily; Stable volume status Continue Coreg 3.125mg PO BID, ASA 81mg PO daily 7-11 Cxray no active findings 7-[address] No PE or acute pulmonary disease Azotemia BUN 28 Likely volume contraction secondary to diuretic usage See above on management; Continue to monitor Hypertension BP 112/69 Continue Coreg 3.125, ethyacrynic acid and lisinopril Blood pressure controlled with meds Continue to monitor vital signs Hypokalemia K- 4.3 Continue to monitor and replete if needed Medical management discussed with laborer pole crew, Dr. Go <Ervin Go - Last Filed: 11/21/17 06:51> Objective - Vital Signs/Intake and Output Vital Signs (last 24 hours): Temp Pulse Resp BP Pulse Ox 98.4 F 60 20 104/65 98 11/20/17 23:10 11/20/17 23:10 11/20/17 23:10 11/20/17 23:10 11/20/17 23:10 Intake and Output: 11/20/17 11/21/17 18:59 06:59 Intake Total 120 Output Total 400 Balance -280 - Medications Medications: Current Medications Acetaminophen (Tylenol 325mg Tab) 650 mg PO Q6 PRN PRN Reason: Pain, moderate (4-7) Last Admin: 11/20/17 10:42 Dose: 650 mg Albuterol/Ipratropium (Duoneb 3 Mg/0.5 Mg (3 Ml) Ud) 3 ml INH RQ4 [facility] Last Admin: 11/21/17 03:12 Dose: Not Given Aspirin (Ecotrin) 81 mg PO DAILY [facility] Last Admin: 11/20/17 10:38 Dose: 81 mg Benzonatate (Tessalon Perles) 100 mg PO TID [facility] Last Admin: 11/20/17 17:09 Dose: 100 mg Carvedilol (Coreg) 3.125 mg PO BID [facility] Last Admin: 11/20/17 18:33 Dose: Not Given Donepezil HCl (Aricept) 10 mg PO HS [facility] Last Admin: 11/20/17 21:29 Dose: 10 mg Famotidine (Pepcid) 20 mg PO DAILY [facility] Last Admin: 11/20/17 10:40 Dose: 20 mg Gabapentin (Neurontin) 600 mg PO HS [facility] Last Admin: 11/20/17 21:29 Dose: 600 mg Guaifenesin/Dextromethorphan (Robitussin Dm) 5 ml PO Q6H PRN PRN Reason: Cough Last Admin: 11/20/17 10:38 Dose: 5 ml Heparin Sodium (Porcine) (Heparin) 5,000 units SC Q8 [facility] Last Admin: 11/20/17 21:29 Dose: 5,000 units Home Med (Patient's Own Medication) 1 tab PO DAILY [facility] Last Admin: 11/20/17 10:38 Dose: 1 tab Lisinopril (Zestril) 5 mg PO DAILY [facility] Saccharomyces Boulardii (Florastor) 250 mg PO BID [facility] Last Admin: 11/20/17 17:09 Dose: 250 mg Tolterodine Tartrate (Detrol) 2 mg PO BID [facility] Last Admin: 11/20/17 17:09 Dose: 2 mg - Labs Labs: 11/20/17 07:20 11/20/17 07:20 Attending/Attestation - Attestation I have personally seen and examined this patient.: Yes I have fully participated in the care of the patient.: Yes I have reviewed all pertinent clinical information, including history, physical exam and plan: Yes Notes (Text): Patient seen and examined; I agree with the resident's note as above with the following edits/changes: Patient with htn, CHF, admitted with dyspnea, leg weakness; currently awaiting rehab placement; Labs relatively stable; mild metabolic alkalosis may be partially compensatory from hypercapnea and partially due to diuretics; should avoid over-diuresis based simply on leg swelling; continuing with ethacrynic acid 25 mg daily; on minimal dose of lisinopril, BP at lower end of normal, continue for now as renal function is stable;
[2017-11-20] MEDS: guaiFENesin DM 100 mg-10 mg/5 ml UD PO PRN (10:38)
[2017-11-20] MEDS: Patient's Own Medication - Tablet/Capusle PO SCH (10:38)
[2017-11-20] MEDS: Saccharomyces Boulardi 250 mg Cap PO SCH ×2 (10:38→17:09)
--- NOTE | 2017-11-20 21:48 | PN ---
DATE: 11/20/2017 SUBJECTIVE: The patient is still experiencing productive cough. Denies any chest pain. PHYSICAL EXAMINATION: VITAL SIGNS: Blood pressure 105/64, heart rate 61, temperature 98.1, respirations 20. HEENT: Normocephalic. CHEST: Absent breath sounds over the left base. HEART: S1, S2 are regular. ABDOMEN: Soft. EXTREMITIES: 1+ pitting edema. LABORATORY DATA: Hemoglobin and hematocrit 10.6 and 31.3, white count and platelet count are within normal limit. Today's SMA-7 is within normal limits except for BUN of 28. The most recent uric acid was done on 11/17/2017 which was within normal limits. ASSESSMENT: 1. Left ventricular diastolic dysfunction. 2. Pneumonia. 3. Secondary pulmonary hypertension. 4. Anemia. 5. Urinary tract infection. 6. Mild prerenal azotemia. RECOMMENDATIONS: Continue Coreg 3.125 mg twice a day, aspirin 81 mg once a day, heparin 5000 units every 8 hours, Zestril 5 mg once a day, Robitussin 5 mL every 6 hours p.r.n. The case was discussed. The management was discussed at length with the patient's daughter at the bedside. Shamar Pisano MD
[2017-11-21] MEDS: Albuterol-Ipratrop 3 mg / 0.5 (3 ml) UD INH SCH ×7 (00:10→23:48)
[2017-11-21 06:57] LABS: BASO # 0.1 K/uL (0.0-0.2); BASO % 0.9 % (0.0-2.0); EOS # 0.4 K/uL (0.0-0.7); HEMOGLOBIN 10.8 g/dL (11.0-16.0); LYMPH # 2.2 K/uL (1.0-4.3); LYMPH % 32.5 % (20.0-40.0); MEAN CORPUSCULAR HGB CONC 33.6 g/dL (33.0-37.0); MEAN PLATELET VOLUME 8.5 fL (7.2-11.7); MONO # 0.8 K/uL (0.0-0.8); MONO % 11.5 % (0.0-10.0); NEUT # 3.4 K/uL (1.8-7.0); NEUT % 49.1 % (50.0-75.0); RBC 3.49 Mil/uL (3.80-5.20); RED CELL DISTRIBUTION WIDTH 13.3 % (11.5-14.5); WHITE BLOOD COUNT 6.9 K/uL (4.8-10.8)
[2017-11-21 07:15] LABS: ALB/GLOB RATIO 1.2 (1.0-2.1); ALBUMIN 3.2 g/dL (3.5-5.0); ALT/SGPT 33 U/L (9-52); AST/SGOT 33 U/L (14-36); BLOOD UREA NITROGEN 28 mg/dL (7-17); CALCIUM 9.1 mg/dl (8.6-10.4); GFR AFRICAN-AMERICAN > 60; GFR NON-AFRICAN AMERICAN 60
[2017-11-21] MEDS: Patient's Own Medication - Tablet/Capusle PO SCH (09:43)
[2017-11-21] MEDS: Saccharomyces Boulardi 250 mg Cap PO SCH ×2 (09:43→18:05)
[2017-11-21] MEDS: guaiFENesin DM 100 mg-10 mg/5 ml UD PO PRN (09:44)
--- NOTE | 2017-11-21 16:49 | CP.PCM.DIS ---
Provider - Provider Date of Admission: 11/14/17 00:47 Attending physician: Jinny Denton MD Primary care physician: Dr. Bucio Consults: Cardiology: Norris Psychiatry: Alfonso Time Spent in preparation of Discharge (in minutes): 42 Hospital Course - Lab Results Lab Results: Micro Results 11/17/17 19:26 Urine,Catheterized Urine Culture - Final No Growth (<1,000 CFU/ML) 11/14/17 10:54 Urine,Kidney Urine Culture - Final Proteus Mirabilis Most Recent Lab Values WBC 6.9 K/uL (4.8-10.8) 11/21/17 06:44 RBC 3.49 Mil/uL (3.80-5.20) L 11/21/17 06:44 Hgb 10.8 g/dL (11.0-16.0) L 11/21/17 06:44 Hct 32.1 % (34.0-47.0) L 11/21/17 06:44 MCV 92.0 fL (81.0-99.0) 11/21/17 06:44 MCH 31.0 pg (27.0-31.0) 11/21/17 06:44 MCHC 33.6 g/dL (33.0-37.0) 11/21/17 06:44 RDW 13.3 % (11.5-14.5) 11/21/17 06:44 Plt Count 224 K/uL (130-400) 11/21/17 06:44 MPV 8.5 fL (7.2-11.7) 11/21/17 06:44 Neut % (Auto) 49.1 % (50.0-75.0) L 11/21/17 06:44 Lymph % (Auto) 32.5 % (20.0-40.0) 11/21/17 06:44 [place] % (Auto) 11.5 % (0.0-10.0) H 11/21/17 06:44 Eos % (Auto) 6.0 % (0.0-4.0) H 11/21/17 06:44 Baso % (Auto) 0.9 % (0.0-2.0) 11/21/17 06:44 Neut # (Auto) 3.4 K/uL (1.8-7.0) 11/21/17 06:44 Lymph # (Auto) 2.2 K/uL (1.0-4.3) 11/21/17 06:44 [place] # (Auto) 0.8 K/uL (0.0-0.8) 11/21/17 06:44 Eos # (Auto) 0.4 K/uL (0.0-0.7) 11/21/17 06:44 Baso # (Auto) 0.1 K/uL (0.0-0.2) 11/21/17 06:44 D-Dimer, Quantitative 487 ng/mlDDU (0-243) H 11/14/17 03:06 pO2 19 mm/Hg (30-55) L 11/13/17 23:50 VBG pH 7.36 (7.32-7.43) 11/13/17 23:50 VBG pCO2 50 mmHg (40-60) 11/13/17 23:50 VBG HCO3 24.5 mmol/L 11/13/17 23:50 VBG Total CO2 29.7 mmol/L (22-28) H 11/13/17 23:50 VBG O2 Sat (Calc) 30.0 % (40-65) L 11/13/17 23:50 VBG Base Excess 1.9 mmol/L (0.0-2.0) 11/13/17 23:50 VBG Potassium 3.8 mmol/L (3.6-5.2) 11/13/17 23:50 Sodium 141.0 mmol/l (132-148) 11/13/17 23:50 Chloride 107.0 mmol/L (98-107) 11/13/17 23:50 Glucose 100 mg/dl (65-105) 11/13/17 23:50 Lactate 1.1 mmol/L (0.7-2.1) 11/13/17 23:50 Crit Value Called To Dr issa 11/13/17 23:50 Crit Value Called By Li morrison 11/13/17 23:50 Crit Value Read Back Y 11/13/17 23:50 Blood Gas Notified Time 3 11/13/17 23:50 Sodium 141 mmol/L (132-148) 11/21/17 06:44 Potassium 4.1 mmol/L (3.6-5.2) 11/21/17 06:44 Chloride 102 mmol/L (98-107) 11/21/17 06:44 Carbon Dioxide 31 mmol/L (22-30) H 11/21/17 06:44 Anion Gap 11 (10-20) 11/21/17 06:44 BUN 28 mg/dL (7-17) H 11/21/17 06:44 Creatinine 0.9 mg/dL (0.7-1.2) 11/21/17 06:44 Est GFR ( Amer) > 60 11/21/17 06:44 Est GFR (Non-Af Amer) 60 11/21/17 06:44 Random Glucose 90 mg/dL (65-105) 11/21/17 06:44 Uric Acid 5.9 mg/dL (2.2-7.5) 11/17/17 07:48 Calcium 9.1 mg/dl (8.6-10.4) 11/21/17 06:44 Phosphorus 4.3 mg/dL (2.5-4.5) 11/21/17 06:44 Magnesium 2.3 mg/dL (1.6-2.3) 11/21/17 06:44 Total Bilirubin 0.1 mg/dL (0.2-1.3) L 11/21/17 06:44 AST 33 U/L (14-36) 11/21/17 06:44 ALT 33 U/L (9-52) 11/21/17 06:44 Alkaline Phosphatase 55 U/L (38-126) 11/21/17 06:44 Total Creatine Kinase 68 U/L (30-135) 11/14/17 15:09 CK-MB (Mass) 0.61 ng/mL (0.0-3.38) 11/14/17 15:09 Troponin I < 0.0120 ng/mL (0.00-0.120) 11/14/17 15:09 NT-Pro-B Natriuret Pep 72.9 pg/mL (0-900) 11/13/17 23:48 Total Protein 5.9 g/dL (6.3-8.3) L 11/21/17 06:44 Albumin 3.2 g/dL (3.5-5.0) L 11/21/17 06:44 Globulin 2.7 gm/dL (2.2-3.9) 11/21/17 06:44 Albumin/Globulin Ratio 1.2 (1.0-2.1) 11/21/17 06:44 Venous Blood Potassium 3.8 mmol/L (3.6-5.2) 11/13/17 23:50 Urine Color Yellow (YELLOW) 11/17/17 19:26 Urine Clarity Clear (Clear) 11/17/17 19:26 Urine pH 5.0 (5.0-8.0) 11/17/17 19:26 Ur Specific [place] 1.011 (1.003-1.030) 11/17/17 19:26 Urine Protein Negative mg/dL (NEGATIVE) 11/17/17 19:26 Urine Glucose (UA) Normal mg/dL (Normal) 11/17/17 19:26 Urine Ketones Negative mg/dL (NEGATIVE) 11/17/17 19:26 Urine Blood Negative (NEGATIVE) 11/17/17 19:26 Urine Nitrate Negative (NEGATIVE) 11/17/17 19:26 Urine Bilirubin Negative (NEGATIVE) 11/17/17 19:26 Urine Urobilinogen Normal mg/dL (0.2-1.0) 11/17/17 19:26 Ur Leukocyte Esterase Neg Sander/uL (Negative) 11/17/17 19:26 Urine WBC (Auto) 1 /hpf (0-5) 11/17/17 19:26 Urine RBC (Auto) < 1 /hpf (0-3) 11/17/17 19:26 Ur Squamous Epith Cells 1 /hpf (0-5) 11/17/17 19:26 Urine Bacteria Rare (<OCC) 11/17/17 19:26 Hyaline Casts 3-5 /lpf (0-2) H 11/14/17 10:54 Mycoplasma pneumon IgM Negative (NEGATIVE) 11/14/17 11:23 - Hospital Course Hospital Course: On admission: HPI: Patient is an 82 year old female with a past medical history of bladder cancer, HTN, CHF, and brain aneurysm, who presents to the hospital with complaints of weakness, shortness of breath, productive cough, and bilateral leg swelling. The patient recently moved from [facility] back to home with her daughter 1 week ago and since then, has developed a productive cough. Per the daughter, there were several people sick at the residential, and she recalls several nurses wearing masks. The patient reports her cough is productive of white sputum, denies colored sputum and hemoptysis. The patient also complains of shortness of breath, leg swelling, and a painful left foot that started yesterday. Of note, patient was recently hospitalized in 07/2017 for SOB and leg swelling. She was previously on diuretic, but those were discontinued during her hospitalization in July due to hypotension. She has not taken diuretics since August. The patient states she has little to no appetite for the past 2-3 days and has had generalized weakness and fatigue. She sits in a chair most of the day and uses a walker to go to and from the bathroom. Patient denies fevers, chills, headaches, dizziness, sore throat, chest pain, palpitations, abdominal pain, nausea, vomiting, diarrhea, constipation, blood in stool, dysuria, hematuria, back pain, and rashes. Hospital course Patient was admitted for evaluation of dyspnea and cough, likely secondary to chronic diastolic CHF. She was started back on home dose of Ethacrynic acid 25mg twice daily with improvement of symptoms. She was started on Coreg 3.125mg PO BID and ASA 81mg daily. Patient was treated for cough secondary to bronchitis , possible healthcare associated pneumonia. She was treated with Ciprofloxacin, Vancomycin then switched to Ceftriaxone after urine cultures were positive for Proteus, which was resistant to Ciprofloxacin. She received Duonebs Q4 with improvement of her cough. Patient's urinalysis was indicative of infection, however she remained asymptomatic during hospitalization. Patient complained of lower extremity pain and swelling. Dopplers and CT angio were ordered, which did not show venous thrombosis or pulmonary embolus. [employer] Dr. Go consulted for azotemia with BUN of 28, who stated that likely due to volume contraction. Since daughter reported concern for depression, psychiatry consult was placed. Patient was medically stable for discharge home, however daughter stated that she could not care for her and patient was discharged to [facility] rehab in [place]. Imaging: CT chest angio: no acute pulmonary embolism. no evidence of acute pulmonary disease. CT chest There is no evidence of pneumonia or mass lesion in the lungs. Lower extremity dopplers: Bilateral peroneal veins are not well visualized due to swelling. There is no evidence of venous thrombosis for the remaining veins in bilateral lower extremities. Discharge summary: Patient to be discharged to [facility] rehab in [place]. Continue the following medications while at subacute rehab Diovan 160mg PO daily Detrol LA 2mg tab BID Gabapentin 600mg PO HS Aricept 10mg PO HS Coreg 3.125mg PO BID ASA 81mg PO MWF Ethacrynic acid 25mg PO BID Discharge Exam - Head Exam Head Exam: ATRAUMATIC, NORMOCEPHALIC - Eye Exam Eye Exam: EOMI - ENT Exam ENT Exam: Mucous Membranes Moist - Respiratory Exam Respiratory Exam: Decreased Breath Sounds, Clear to PA & Lateral, NORMAL BREATHING PATTERN. absent: Rales, Rhonchi, Wheezes, Respiratory Distress - Cardiovascular Exam Cardiovascular Exam: REGULAR RHYTHM, +S1, +S2 - GI/Abdominal Exam GI & Abdominal Exam: Distended, Normal Bowel Sounds, Soft. absent: Firm, Guarding, Tenderness - Extremities Exam Extremities exam: pedal edema (bilaterally, with hyperkeratotic skin changes of feet with thickened yellow nails bilaterally), tenderness (minimal tenderness of feet), pedal pulses present - Neurological Exam Neurological exam: Alert, Oriented x3 - Psychiatric Exam Psychiatric exam: Normal Affect, Normal Mood Discharge Plan - Discharge Medications Prescriptions: Ethacrynic Acid 25 mg PO TID #90 tablet Valsartan [Diovan] 160 mg PO DAILY #30 tab - Follow Up Plan Condition: STABLE Disposition: REHAB FACILITY/REHAB UNIT Instructions: Heart Healthy Diet, Heart Failure, Adult (DC), Shortness of Breath (Dyspnea) (DC), Swelling, Generalized Weakness (DC), Dyspnea (GEN) Additional Instructions: Patient discharged to [facility]. Patient should continue all home medications listed below: Aspirin 81 mg once a day on Saturday, Saturday, Saturday Carvedilol 3.125 mg twice a day Donepezil 10 mg once a day at bedtime Ethacrynic acid 20 mg twice a day Gabapentin 600 mg once a day at bedtime Pantoprazole 20 mg once a day Tolterodine 4mg once a day Valsartan 160 mg once a day Patient should follow up with primary doctor (Dr. Bucio) in one to two weeks. If patient has any symptoms that arise again or worsen, please return to the nearest emergency medical facility.
--- NOTE | 2017-11-21 16:49 | PN ---
DATE: 11/21/2017 SUBJECTIVE: The patient is still experiencing productive cough and shortness of breath at times. She denies retrosternal chest pain. PHYSICAL EXAMINATION: VITAL SIGNS: Blood pressure 145/67, heart rate 69, temperature 97.9, and respirations 20. HEENT: Pale conjunctivae. CHEST: Absent breath sounds over the left base. HEART: S1 and S2 regular. ABDOMEN: Soft. EXTREMITIES: Improved leg edema. LABORATORY DATA: Hemoglobin and hematocrit 15.8 and 32.1. White count and platelet count are within normal limits. SMA-7, sodium 141, potassium 4.1, chloride 102, CO2 of 31, glucose 90, BUN 28, and creatinine 0.9. ASSESSMENT: 1. Diastolic left ventricular dysfunction. 2. Pneumonia. 3. Secondary pulmonary hypertension. 4. Urinary tract infection. 5. Mild prerenal azotemia. RECOMMENDATIONS: Continue Coreg 3.125 mg twice a day, aspirin 81 mg once a day, heparin 5000 units every 8 hours, Zestril at 5 mg daily, and Aricept 10 mg q.h.s. Shamar Pisano MD
--- NOTE | 2017-11-21 17:20 | CARD ---
APPROVED REPORT Date of service: 11/14/2017 EKG Measurement Heart [id number] [place] [id number] <Conclusion> Normal sinus rhythm Left axis deviation Abnormal ECG
--- NOTE | 2017-11-21 17:20 | CARD ---
APPROVED REPORT Date of service: 11/14/2017 EKG Measurement Heart [id number] [place] [id number] <Conclusion> Normal sinus rhythm Normal ECG
[2017-11-22] MEDS: Albuterol-Ipratrop 3 mg / 0.5 (3 ml) UD INH SCH ×2 (03:05→07:41)
[2017-11-22 06:30] LABS: BASO # 0.1 K/uL (0.0-0.2); EOS # 0.4 K/uL (0.0-0.7); EOS % 5.3 % (0.0-4.0); HEMOGLOBIN 11.1 g/dL (11.0-16.0); LYMPH # 2.2 K/uL (1.0-4.3); LYMPH % 31.5 % (20.0-40.0); MEAN CELL VOLUME 91.6 fL (81.0-99.0); MEAN CORPUSCULAR HEMOGLOBIN 30.7 pg (27.0-31.0); MEAN CORPUSCULAR HGB CONC 33.6 g/dL (33.0-37.0); MEAN PLATELET VOLUME 8.4 fL (7.2-11.7); MONO # 0.8 K/uL (0.0-0.8); NEUT # 3.5 K/uL (1.8-7.0); NEUT % 50.2 % (50.0-75.0); RBC 3.62 Mil/uL (3.80-5.20); RED CELL DISTRIBUTION WIDTH 13.5 % (11.5-14.5)
[2017-11-22 06:57] LABS: ALB/GLOB RATIO 1.2 (1.0-2.1); ALBUMIN 3.5 g/dL (3.5-5.0); ALT/SGPT 36 U/L (9-52); AST/SGOT 44 U/L (14-36); BLOOD UREA NITROGEN 28 mg/dL (7-17); CALCIUM 9.2 mg/dl (8.6-10.4); GFR AFRICAN-AMERICAN > 60; GFR NON-AFRICAN AMERICAN 53
[2017-11-22 08:08] VITALS: RESP 20
[2017-11-22] MEDS: Patient's Own Medication - Tablet/Capusle PO SCH (09:55)
[2017-11-22] MEDS: Saccharomyces Boulardi 250 mg Cap PO SCH (09:56)
[2017-11-22] MEDS: guaiFENesin DM 100 mg-10 mg/5 ml UD PO PRN (09:56)
[2017-11-22 12:41] VITALS: BP 107/61; PULSE 64; TEMP 97.5; O2SAT 94
--- NOTE | 2017-11-22 13:48 | CP.PCM.PN ---
Subjective - Date & Time of Evaluation Date of Evaluation: 11/22/17 Time of Evaluation: 13:45 - Subjective Subjective: Pietro Dalal PGY-1 [facility] Progress Note Patient seen and examined at bedside. Patient daughter at bedside. Pt offers no acute complaints; tolerating diet with good appetite; urinary incontinent; no difficulty breathing; reports ongoing dry cough. Patient denies chest pain, shortness of breath, n/v/c/d. Objective - Vital Signs/Intake and Output Vital Signs (last 24 hours): Temp Pulse Resp BP Pulse Ox 97.5 F L 64 20 107/61 94 L 11/22/17 12:35 11/22/17 12:35 11/22/17 12:35 11/22/17 12:35 11/22/17 12:35 Intake and Output: 11/22/17 11/22/17 06:59 18:59 Intake Total 300 Output Total 1600 Balance -1300 - Labs Labs: 11/22/17 06:21 11/22/17 06:21 - Additional Findings Additional findings: - Constitutional Appears: Well, No Acute Distress - Head Exam Head Exam: ATRAUMATIC, NORMAL INSPECTION, NORMOCEPHALIC - Eye Exam Eye Exam: EOMI, Normal appearance - Respiratory Exam Respiratory Exam: Clear to Ausculation Bilateral. absent: Rales, Rhonchi, Wheezes - Cardiovascular Exam Cardiovascular Exam: REGULAR RHYTHM, +S1, +S2. absent: JVD - GI/Abdominal Exam GI & Abdominal Exam: Soft, Normal Bowel Sounds. absent: Tenderness - Extremities Exam Extremities Exam: Normal Inspection. absent: Pedal Edema Additional comments: skin appears slightly shriveled but improving - Psychiatric Exam Psychiatric exam: Normal Affect, Normal Mood - Skin Skin Exam: Normal Color, Warm. absent: Rash Assessment and Plan - Assessment and Plan (Free Text) Assessment: Patient is a 82 yo with PMH HTN, CHF, s/p brain aneurysm, s/p carotid surgery, and bladder cancer who presents with weakness, shortness of breath, and dry cough. Plan: Congestive Heart Failure with Diastolic Dysfunction Continue Ethacrynic acid 25 mg daily and Lisinopril 5mg daily; Stable volume status Continue Coreg 3.125mg PO BID, ASA 81mg PO daily 7-11 Cxray no active findings 7-[address] No PE or acute pulmonary disease Can increase Ethacrynic acid to bid if SOB returns Azotemia BUN 28 Likely volume contraction secondary to diuretic usage See above on management; Continue to monitor Hypertension BP 107/61 Continue Coreg 3.125, ethyacrynic acid and lisinopril Blood pressure controlled with meds Continue to monitor vital signs Hypokalemia K- 4.3 Continue to monitor and replete if needed Medical management discussed with non destructive testing inspector, Dr. Go
--- NOTE | 2017-11-22 15:35 | CP.PCM.DIS ---
Provider - Provider Date of Admission: 11/14/17 00:47 Attending physician: Jinny Denton MD Primary care physician: Dr. Bucio Consults: Cardiology: Norris Psychiatry: Alfonso Time Spent in preparation of Discharge (in minutes): 40 Diagnosis - Discharge Diagnosis (1) Weakness Status: Acute Comment: Chronic condition. (2) UTI (urinary tract infection) Status: Acute Comment: Treated with cetrixaone. Hospital Course - Lab Results Lab Results: Micro Results 11/17/17 19:26 Urine,Catheterized Urine Culture - Final No Growth (<1,000 CFU/ML) 11/14/17 10:54 Urine,Kidney Urine Culture - Final Proteus Mirabilis Most Recent Lab Values WBC 7.0 K/uL (4.8-10.8) 11/22/17 06:21 RBC 3.62 Mil/uL (3.80-5.20) L 11/22/17 06:21 Hgb 11.1 g/dL (11.0-16.0) 11/22/17 06:21 Hct 33.1 % (34.0-47.0) L 11/22/17 06:21 MCV 91.6 fL (81.0-99.0) 11/22/17 06:21 MCH 30.7 pg (27.0-31.0) 11/22/17 06:21 MCHC 33.6 g/dL (33.0-37.0) 11/22/17 06:21 RDW 13.5 % (11.5-14.5) 11/22/17 06:21 Plt Count 229 K/uL (130-400) 11/22/17 06:21 MPV 8.4 fL (7.2-11.7) 11/22/17 06:21 Neut % (Auto) 50.2 % (50.0-75.0) 11/22/17 06:21 Lymph % (Auto) 31.5 % (20.0-40.0) 11/22/17 06:21 [place] % (Auto) 12.0 % (0.0-10.0) H 11/22/17 06:21 Eos % (Auto) 5.3 % (0.0-4.0) H 11/22/17 06:21 Baso % (Auto) 1.0 % (0.0-2.0) 11/22/17 06:21 Neut # (Auto) 3.5 K/uL (1.8-7.0) 11/22/17 06:21 Lymph # (Auto) 2.2 K/uL (1.0-4.3) 11/22/17 06:21 [place] # (Auto) 0.8 K/uL (0.0-0.8) 11/22/17 06:21 Eos # (Auto) 0.4 K/uL (0.0-0.7) 11/22/17 06:21 Baso # (Auto) 0.1 K/uL (0.0-0.2) 11/22/17 06:21 D-Dimer, Quantitative 487 ng/mlDDU (0-243) H 11/14/17 03:06 pO2 19 mm/Hg (30-55) L 11/13/17 23:50 VBG pH 7.36 (7.32-7.43) 11/13/17 23:50 VBG pCO2 50 mmHg (40-60) 11/13/17 23:50 VBG HCO3 24.5 mmol/L 11/13/17 23:50 VBG Total CO2 29.7 mmol/L (22-28) H 11/13/17 23:50 VBG O2 Sat (Calc) 30.0 % (40-65) L 11/13/17 23:50 VBG Base Excess 1.9 mmol/L (0.0-2.0) 11/13/17 23:50 VBG Potassium 3.8 mmol/L (3.6-5.2) 11/13/17 23:50 Sodium 141.0 mmol/l (132-148) 11/13/17 23:50 Chloride 107.0 mmol/L (98-107) 11/13/17 23:50 Glucose 100 mg/dl (65-105) 11/13/17 23:50 Lactate 1.1 mmol/L (0.7-2.1) 11/13/17 23:50 Crit Value Called To Dr issa 11/13/17 23:50 Crit Value Called By Li morrison 11/13/17 23:50 Crit Value Read Back Y 11/13/17 23:50 Blood Gas Notified Time 3 11/13/17 23:50 Sodium 139 mmol/L (132-148) 11/22/17 06:21 Potassium 4.3 mmol/L (3.6-5.2) 11/22/17 06:21 Chloride 101 mmol/L (98-107) 11/22/17 06:21 Carbon Dioxide 32 mmol/L (22-30) H 11/22/17 06:21 Anion Gap 11 (10-20) 11/22/17 06:21 BUN 28 mg/dL (7-17) H 11/22/17 06:21 Creatinine 1.0 mg/dL (0.7-1.2) 11/22/17 06:21 Est GFR ( Amer) > 60 11/22/17 06:21 Est GFR (Non-Af Amer) 53 11/22/17 06:21 Random Glucose 96 mg/dL (65-105) 11/22/17 06:21 Uric Acid 5.9 mg/dL (2.2-7.5) 11/17/17 07:48 Calcium 9.2 mg/dl (8.6-10.4) 11/22/17 06:21 Phosphorus 3.8 mg/dL (2.5-4.5) 11/22/17 06:21 Magnesium 2.2 mg/dL (1.6-2.3) 11/22/17 06:21 Total Bilirubin 0.2 mg/dL (0.2-1.3) 11/22/17 06:21 AST 44 U/L (14-36) H D 11/22/17 06:21 ALT 36 U/L (9-52) 11/22/17 06:21 Alkaline Phosphatase 53 U/L (38-126) 11/22/17 06:21 Total Creatine Kinase 68 U/L (30-135) 11/14/17 15:09 CK-MB (Mass) 0.61 ng/mL (0.0-3.38) 11/14/17 15:09 Troponin I < 0.0120 ng/mL (0.00-0.120) 11/14/17 15:09 NT-Pro-B Natriuret Pep 72.9 pg/mL (0-900) 11/13/17 23:48 Total Protein 6.3 g/dL (6.3-8.3) 11/22/17 06:21 Albumin 3.5 g/dL (3.5-5.0) 11/22/17 06:21 Globulin 2.8 gm/dL (2.2-3.9) 11/22/17 06:21 Albumin/Globulin Ratio 1.2 (1.0-2.1) 11/22/17 06:21 Venous Blood Potassium 3.8 mmol/L (3.6-5.2) 11/13/17 23:50 Urine Color Yellow (YELLOW) 11/17/17 19:26 Urine Clarity Clear (Clear) 11/17/17 19:26 Urine pH 5.0 (5.0-8.0) 11/17/17 19:26 Ur Specific [place] 1.011 (1.003-1.030) 11/17/17 19:26 Urine Protein Negative mg/dL (NEGATIVE) 11/17/17 19:26 Urine Glucose (UA) Normal mg/dL (Normal) 11/17/17 19:26 Urine Ketones Negative mg/dL (NEGATIVE) 11/17/17 19:26 Urine Blood Negative (NEGATIVE) 11/17/17 19:26 Urine Nitrate Negative (NEGATIVE) 11/17/17 19:26 Urine Bilirubin Negative (NEGATIVE) 11/17/17 19:26 Urine Urobilinogen Normal mg/dL (0.2-1.0) 11/17/17 19:26 Ur Leukocyte Esterase Neg Sander/uL (Negative) 11/17/17 19:26 Urine WBC (Auto) 1 /hpf (0-5) 11/17/17 19:26 Urine RBC (Auto) < 1 /hpf (0-3) 11/17/17 19:26 Ur Squamous Epith Cells 1 /hpf (0-5) 11/17/17 19:26 Urine Bacteria Rare (<OCC) 11/17/17 19:26 Hyaline Casts 3-5 /lpf (0-2) H 11/14/17 10:54 Mycoplasma pneumon IgM Negative (NEGATIVE) 11/14/17 11:23 - Hospital Course Hospital Course: On admission: HPI: Patient is an 82 year old female with a past medical history of bladder cancer, HTN, CHF, and brain aneurysm, who presents to the hospital with complaints of weakness, shortness of breath, productive cough, and bilateral leg swelling. The patient recently moved from [facility] back to home with her daughter 1 week ago and since then, has developed a productive cough. Per the daughter, there were several people sick at the intermediate, and she recalls several nurses wearing masks. The patient reports her cough is productive of white sputum, denies colored sputum and hemoptysis. The patient also complains of shortness of breath, leg swelling, and a painful left foot that started yesterday. Of note, patient was recently hospitalized in 07/2017 for SOB and leg swelling. She was previously on diuretic, but those were discontinued during her hospitalization in July due to hypotension. She has not taken diuretics since August. The patient states she has little to no appetite for the past 2-3 days and has had generalized weakness and fatigue. She sits in a chair most of the day and uses a walker to go to and from the bathroom. Patient denies fevers, chills, headaches, dizziness, sore throat, chest pain, palpitations, abdominal pain, nausea, vomiting, diarrhea, constipation, blood in stool, dysuria, hematuria, back pain, and rashes. Hospital course Patient was admitted for evaluation of dyspnea and cough, likely secondary to chronic diastolic CHF. She was started back on home dose of Ethacrynic acid 25mg twice daily with improvement of symptoms. She was started on Coreg 3.125mg PO BID and ASA 81mg daily. Patient was treated for cough secondary to bronchitis , possible healthcare associated pneumonia. She was treated with Ciprofloxacin, Vancomycin then switched to Ceftriaxone after urine cultures were positive for Proteus, which was resistant to Ciprofloxacin. She received Duonebs Q4 with improvement of her cough. Patient's urinalysis was indicative of infection, however she remained asymptomatic during hospitalization. Patient complained of lower extremity pain and swelling. Dopplers and CT angio were ordered, which did not show venous thrombosis or pulmonary embolus. Bone [employer] Kiln Operator Dr. Go consulted for azotemia with BUN of 28, who stated that likely due to volume contraction. Since daughter reported concern for depression, psychiatry consult was placed. Patient was medically stable for discharge home, however daughter stated that she could not care for her and patient was discharged to [facility] subacute rehab in [place]. Imaging: CT chest angio: no acute pulmonary embolism. no evidence of acute pulmonary disease. CT chest There is no evidence of pneumonia or mass lesion in the lungs. Lower extremity dopplers: Bilateral peroneal veins are not well visualized due to swelling. There is no evidence of venous thrombosis for the remaining veins in bilateral lower extremities. Discharge summary: Patient to be discharged to [facility] rehab in [place]. Continue the following medications while at subacute rehab Diovan 160mg PO daily Detrol LA 2mg tab BID Gabapentin 600mg PO HS Aricept 10mg PO HS Coreg 3.125mg PO BID ASA 81mg PO MWF Ethacrynic acid 25mg PO BID Discharge Exam - Head Exam Head Exam: ATRAUMATIC, NORMOCEPHALIC Discharge Plan - Discharge Medications Prescriptions: Ethacrynic Acid 25 mg PO TID #90 tablet Valsartan [Diovan] 160 mg PO DAILY #30 tab - Follow Up Plan Condition: STABLE Disposition: REHAB FACILITY/REHAB UNIT Instructions: Heart Healthy Diet, Heart Failure, Adult (DC), Shortness of Breath (Dyspnea) (DC), Swelling, Generalized Weakness (DC), Dyspnea (GEN), Urinary Tract Infection in Women (DC), Urinary Tract Infection in Men (DC), Dysuria (GEN) Additional Instructions: Patient discharged to [facility]. Patient should continue all home medications listed below: Aspirin 81 mg once a day on Saturday, Saturday, Saturday Carvedilol 3.125 mg twice a day Donepezil 10 mg once a day at bedtime Ethacrynic acid 20 mg twice a day Gabapentin 600 mg once a day at bedtime Pantoprazole 20 mg once a day Tolterodine 4mg once a day Valsartan 160 mg once a day Patient should follow up with primary doctor (Dr. Bucio) in one to two weeks. If patient has any symptoms that arise again or worsen, please return to the nearest emergency medical facility.
--- NOTE | 2017-11-22 20:38 | PN ---
DATE: 11/22/2017 SUBJECTIVE: The patient is still experiencing productive cough. No retrosternal chest pain. OBJECTIVE: VITAL SIGNS: Blood pressure 107/61, heart rate 64, temperature 97.5, respirations 20. HEENT: Normocephalic. CHEST: Bibasilar rhonchi. HEART: S1, S2 regular. ABDOMEN: Soft. EXTREMITIES: No edema. LABORATORY DATA: Today's hemoglobin and hematocrit 11.1 and 33.1, white count and platelet count are within normal limits. Today's SMA-7 is within normal limits except carbon dioxide of 32 and BUN of 23. ASSESSMENT: 1. Chronic diastolic left ventricular dysfunction. 2. Pneumonia. 3. History of gouty arthritis. 4. Anemia. 5. Urinary tract infection. 6. Mild prerenal azotemia. RECOMMENDATION: The patient can be transferred to subacute rehab on her current medications including subcutaneous heparin 5000 units every 8 hours, Zestril 5 mg once a day, Lasix 20 mg p.o. once a day, aspirin 81 mg once a day, Coreg 3.125 mg twice a day. Case was discussed with the patient's daughter at the bedside. Shamar Pisano MD
--- NOTE | 2017-11-24 10:26 | PCM.PSYCH ---
Initial Psychiatric Evaluation - Initial Psychiatric Evaluation Type of Admission: Voluntary Legal Status: Capacity Chief Complaint (in patient's own words): I could not stand up History of Present Illness and Precipitating Events: 82 year old female presents to the ER with daughter for a complaint of SOB. Patient was admitted at [facility] during the end of July for swollen legs, SOB, and was diagnosed with CHF. Patient was admitted for 10 days then transferred to [facility]. Patient was discharged home from [facility] on 11/07/17. She initially was able to take care of herself, however, she was discharged with cold and cough symptoms which have been worsening and causing her to get progressively SOB. She was consulted today. Ms. Blanton says that she has been in the hospital since early August - first at [facility] then transferred to [facility]. Her sleep is good, interest level is good, no feelings of guilt, energy has been on a steady decrease with age but there were no abrupt changes, concentration is good, appetite has decreased since being in the hospital. She has no suicidal/homicidal thoughts. She does not have hallucinations. Her MMSE exam was 26. She has no history of seizures. She reports a good mood and keeping her humor. She lives with her daughter and receives a pension for longterm. She denies nay AVH or any paranoia. She denies any SI/HI. Diagnostic Results: MMSE = 26 Depression screen = 2/9 Past Psychiatric History - Past Psychiatric History Previous Treatment History: None Pertinent Medical Hx (Current Medical&Sleep Prob, Allergies): Allergies Allergy/AdvReac Type Severity Reaction Status Date / Time Penicillins Allergy RASH Verified 11/18/17 07:34 Sulfa (Sulfonamide Allergy RASH Verified 11/18/17 07:34 Antibiotics) eggs Allergy ITCHING Uncoded 11/18/17 07:34 Ethacrynic Acid 25 mg PO TID #90 tablet 11/19/17 Valsartan [Diovan] 160 mg PO DAILY #30 tab 11/19/17 Albuterol/Ipratropium [Duoneb 3 mg/0.5 mg (3 ml) UD] 3 ml INH RQ4 neb 11/21/17 Aspirin [Ecotrin] 81 mg PO MWF tabec 11/21/17 Carvedilol [Coreg] 3.125 mg PO BID tab 11/21/17 Donepezil [Aricept] 10 mg PO HS tab 11/21/17 Gabapentin [Neurontin] 600 mg PO HS tab 11/21/17 Tolterodine [Detrol] 2 mg PO BID tab 11/21/17 Review of Systems - Review of Systems All systems: reviewed and no additional remarkable complaints except - Psychiatric Psychiatric: Anxiety, Irritability. absent: Suicidal Ideation Mental Status Examination - Personal Presentation Personal Presentation: Looks stated age - Affect Affect: Constricted - Motor Activity Motor Activity: Calm - Reliability in Providing Information Reliability in Providing Information: Fair - Speech Speech: Organized - Mood Mood: Anxious - Formal Thought Process Formal Thought Process: No Impairment - Obsessions/Compulsions Obsessions: No Compulsions: No - Cognitive Functions Orientation: Person, Place, Situation, Time Sensorium: Alert Abstract Thinking: Strong Estimate of Intelligence: Below average Judgement: Imparied, as evidence by: Poor judgement, Intact, as evidence by: Insight regarding need for hospitalization - Risk Risk: Diminished functioning - Limitations Limitations: Living alone DSM 5 DX - DSM 5 DSM 5 Diagnosis: Anxiety disorder NOS - Recommended/Plan of Treatment Treatment Recommendations and Plan of Treatment: Pt psychiatrically stable and clear for discharge. - Smoking Cessation Smoking Cessation Initiated: No
== END 2017-11-22 13:10 | DRG 291 ==
LOC: C.ER 22:45 → C.3T 11-14 00:47 → C.6T 11-15 12:47
PROVIDERS: ADMIT Internal Medicine; ATTEND Internal Medicine
DX: I11.0 Hypertensive heart disease with heart failure (principal); J18.9 Pneumonia, unspecified organism; E87.3 Alkalosis; N39.0 Urinary tract infection, site not specified; D64.9 Anemia, unspecified; I50.33 Acute on chronic diastolic (congestive) heart failure; E83.51 Hypocalcemia; E86.0 Dehydration; E87.6 Hypokalemia; F03.90 Unspecified dementia, unspecified severity, without behavioral disturbance, psychotic disturbance, mood disturbance, and anxiety; F41.9 Anxiety disorder, unspecified; I27.29 Other secondary pulmonary hypertension; I87.2 Venous insufficiency (chronic) (peripheral); R32 Unspecified urinary incontinence; J40 Bronchitis, not specified as acute or chronic; I87.8 Other specified disorders of veins; B96.4 Proteus (mirabilis) (morganii) as the cause of diseases classified elsewhere; Z66 Do not resuscitate; Z74.01 Bed confinement status; Z85.51 Personal history of malignant neoplasm of bladder; Z86.73 Personal history of transient ischemic attack (TIA), and cerebral infarction without residual deficits; Z87.891 Personal history of nicotine dependence